=== PATIENT | female | born 1950 | race Caucasian/White ===

== ENCOUNTER 2017-12-29 08:17 | Inpatient (IN) | payer MEDICARE ==
--- NOTE | 2017-12-29 08:31 | ED ---
General Adult HPI - General Chief complaint: Chest Pain Stated complaint: Chest pain Time Seen by Provider: 12/29/17 08:23 Source: patient, RN notes reviewed, old records reviewed Mode of arrival: EMS Limitations: no limitations - History of Present Illness Initial comments: 67-year-old female history of hypertension, hypercholesterolemia and tobacco use presents for evaluation of chest pain. Patient's pain began approximately one hour prior to arrival. Describes it as substernal moderate to severe pain. This was associated with palpitations. No dyspnea. No diaphoresis. Patient states she felt well prior to this episode. She had similar episode approximately one week ago which resolved spontaneously. Patient is brought in by EMS, noted by EMS to initially be in A. fib with rapid ventricular response. Patient has no history of A. fib. She converted spontaneously while in route to normal sinus rhythm. Chest pain resolved at the time my evaluation. - Related Data Allergies Allergy/AdvReac Type Severity Reaction Status Date / Time Penicillins Allergy Unknown Verified 12/29/17 08:23 Review of Systems ROS Statement: Those systems with pertinent positive or pertinent negative responses have been documented in the HPI. ROS Other: All systems not noted in ROS Statement are negative. Past Medical History Past Medical History: GERD/Reflux, Hyperlipidemia, Hypertension History of Any Multi-Drug Resistant Organisms: None Reported Past Surgical History: Hysterectomy Past Psychological History: No Psychological Hx Reported Smoking Status: Current every day smoker Past Alcohol Use History: None Reported Past Drug Use History: None Reported General Exam Limitations: no limitations General appearance: alert, in no apparent distress Head exam: Present: atraumatic, normocephalic Eye exam: Present: normal appearance, PERRL, EOMI ENT exam: Present: normal exam Neck exam: Present: normal inspection. Absent: tenderness, meningismus Respiratory exam: Present: normal lung sounds bilaterally. Absent: respiratory distress, wheezes Cardiovascular Exam: Present: regular rate, normal rhythm GI/Abdominal exam: Present: soft. Absent: distended, tenderness, guarding Extremities exam: Present: normal inspection, normal capillary refill. Absent: pedal edema Neurological exam: Present: alert, oriented X3, CN II-XII intact. Absent: motor sensory deficit Psychiatric exam: Present: normal affect, normal mood Skin exam: Present: warm, dry, intact. Absent: cyanosis, diaphoretic Course Vital Signs 12/29/17 12/29/17 12/29/17 08:19 08:33 09:00 Temperature 98.2 F Pulse Rate 72 68 61 Respiratory 16 11 L 23 Rate Blood Pressure 132/80 145/80 145/80 O2 Sat by Pulse 98 96 99 Oximetry EKG Findings - EKG Comments: EKG Findings:: EKG: Normal sinus rhythm, incomplete right bundle branch block age undetermined anterior infarct, rate of 68, SC interval 142 Medical Decision Making - Medical Decision Making 67 -year-old female presenting for evaluation of chest pain. Patient noted by EMS to be in atrial fibrillation with a rate of 167. patient is chest pain-free at the time my evaluation is normal sinus rhythm. Chest x-ray shows mild cardiomegaly with some vascular congestion. Patient has normal CBC, negative initial troponin, electrolytes within normal limits. Patient is started on IV heparin. She took aspirin prior to arrival. She will be admitted for serial cardiac enzymes, telemetry, cardiology consultation. Echo will be obtained. Diagnosis: Unstable angina, new onset atrial fibrillation. Case discussed with the admitting physician who will accept. - Lab Data Result diagrams: 12/29/17 08:37 12/29/17 08:37 Lab Results 12/29/17 12/29/17 12/29/17 Range/Units 08:37 08:37 08:37 WBC 9.1 (3.8-10.6) k/uL RBC 5.03 (3.80-5.40) m/uL Hgb 15.2 (11.4-16.0) gm/dL Hct 46.0 (34.0-46.0) % MCV 91.5 (80.0-100.0) fL MCH 30.1 (25.0-35.0) pg MCHC 32.9 (31.0-37.0) g/dL RDW 13.1 (11.5-15.5) % Plt Count 140 L (150-450) k/uL Neutrophils % 75 % Lymphocytes % 18 % Monocytes % 4 % Eosinophils % 2 % Basophils % 0 % Neutrophils # 6.8 (1.3-7.7) k/uL Lymphocytes # 1.6 (1.0-4.8) k/uL Monocytes # 0.4 (0-1.0) k/uL Eosinophils # 0.2 (0-0.7) k/uL Basophils # 0.0 (0-0.2) k/uL PT (9.0-12.0) sec INR (<1.2) APTT (22.0-30.0) sec Sodium 142 (137-145) mmol/L Potassium 4.0 (3.5-5.1) mmol/L Chloride 110 H (98-107) mmol/L Carbon Dioxide 23 (22-30) mmol/L Anion Gap 9 mmol/L BUN 26 H (7-17) mg/dL Creatinine 0.84 (0.52-1.04) mg/dL Est GFR (CKD-EPI)AfAm 83 (>60 ml/min/1.73 sqM) Est GFR (CKD-EPI)NonAf 72 (>60 ml/min/1.73 sqM) Glucose 136 H (74-99) mg/dL Calcium 9.2 (8.4-10.2) mg/dL Magnesium 1.8 (1.6-2.3) mg/dL Total Bilirubin 0.3 (0.2-1.3) mg/dL AST 24 (14-36) U/L ALT 25 (9-52) U/L Alkaline Phosphatase 90 (38-126) U/L Total Creatine Kinase 80 (30-135) U/L CK-MB (CK-2) 0.8 (0.0-2.4) ng/mL CK-MB (CK-2) Rel Index 1.0 Troponin I <0.012 (0.000-0.034) ng/mL Total Protein 6.6 (6.3-8.2) g/dL Albumin 3.6 (3.5-5.0) g/dL TSH 1.290 (0.465-4.680) mIU/L 12/29/17 Range/Units 08:37 WBC (3.8-10.6) k/uL RBC (3.80-5.40) m/uL Hgb (11.4-16.0) gm/dL Hct (34.0-46.0) % MCV (80.0-100.0) fL MCH (25.0-35.0) pg MCHC (31.0-37.0) g/dL RDW (11.5-15.5) % Plt Count (150-450) k/uL Neutrophils % % Lymphocytes % % Monocytes % % Eosinophils % % Basophils % % Neutrophils # (1.3-7.7) k/uL Lymphocytes # (1.0-4.8) k/uL Monocytes # (0-1.0) k/uL Eosinophils # (0-0.7) k/uL Basophils # (0-0.2) k/uL PT 9.8 (9.0-12.0) sec INR 1.0 (<1.2) APTT 25.4 (22.0-30.0) sec Sodium (137-145) mmol/L Potassium (3.5-5.1) mmol/L Chloride (98-107) mmol/L Carbon Dioxide (22-30) mmol/L Anion Gap mmol/L BUN (7-17) mg/dL Creatinine (0.52-1.04) mg/dL Est GFR (CKD-EPI)AfAm (>60 ml/min/1.73 sqM) Est GFR (CKD-EPI)NonAf (>60 ml/min/1.73 sqM) Glucose (74-99) mg/dL Calcium (8.4-10.2) mg/dL Magnesium (1.6-2.3) mg/dL Total Bilirubin (0.2-1.3) mg/dL AST (14-36) U/L ALT (9-52) U/L Alkaline Phosphatase (38-126) U/L Total Creatine Kinase (30-135) U/L CK-MB (CK-2) (0.0-2.4) ng/mL CK-MB (CK-2) Rel Index Troponin I (0.000-0.034) ng/mL Total Protein (6.3-8.2) g/dL Albumin (3.5-5.0) g/dL TSH (0.465-4.680) mIU/L Critical Care Time Critical Care Time: Yes Total Critical Care Time: 35 Disposition Clinical Impression: Unstable angina pectoris, Atrial fibrillation Disposition: ADMITTED IP TO THIS [facility] Condition: Stable Is patient prescribed a controlled substance at d/c from ED?: No Referrals: Nonstaff,Physician [Primary Care Provider] - 1-2 days Decision to Admit Reason: Admit from EC Decision Date: 12/29/17 Decision Time: 09:50
[2017-12-29] MEDS ORDERED: METOPROLOL TARTRATE 25 MG TAB PO STA (08:39)
[2017-12-29 08:50] LABS: Basophils % (A) 0 %; Eosinophils # (A) 0.2 k/uL (0-0.7); Eosinophils % (A) 2 %; HGB 15.2 gm/dL (11.4-16.0); Lymphocytes # (A) 1.6 k/uL (1.0-4.8); Lymphocytes % (A) 18 %; MCH 30.1 pg (25.0-35.0); MCHC 32.9 g/dL (31.0-37.0); MCV 91.5 fL (80.0-100.0); Mean Platelet Volume 8.8; Monocytes # (A) 0.4 k/uL (0-1.0); Monocytes % (A) 4 %; Neutrophils # (A) 6.8 k/uL (1.3-7.7); Neutrophils % (A) 75 %; Platelet Count 140 k/uL (150-450); RBC 5.03 m/uL (3.80-5.40); RDW 13.1 % (11.5-15.5); WBC 9.1 k/uL (3.8-10.6)
--- NOTE | 2017-12-29 08:53 | XR ---
EXAMINATION TYPE: XR chest 2V DATE OF EXAM: 12/29/2017 HISTORY: Chest Pain. REFERENCE: NONE. FINDINGS: Heart is mildly prominent. The lungs are clear. There is mild vascular congestion without f rank edema. No pleural fluid is seen. IMPRESSION: MILD CARDIOMEGALY WITH VASCULAR CONGESTION.
[2017-12-29] MEDS ORDERED: METOPROLOL TARTRATE 25 MG TAB PO SCH (09:00)
[2017-12-29] MEDS ORDERED: HEPARIN SODIUM,PORCINE 5,000 UNIT/ML 1 ML VIAL IV ONE (09:02)
[2017-12-29] MEDS ORDERED: HEPARIN SODIUM,PORCINE 5,000 UNIT/ML 1 ML VIAL IV PRN (09:02)
[2017-12-29 09:08] LABS: Albumin 3.6 g/dL (3.5-5.0); Calcium 9.2 mg/dL (8.4-10.2); Magnesium 1.8 mg/dL (1.6-2.3); Total Bilirubin 0.3 mg/dL (0.2-1.3); Total Protein 6.6 g/dL (6.3-8.2)
[2017-12-29 09:09] LABS: Partial Thromboplastin Time 25.4 sec (22.0-30.0); Prothrombin Time 9.8 sec (9.0-12.0)
[2017-12-29 09:21] LABS: Creatine Kinase 80 U/L (30-135)
[2017-12-29 09:34] LABS: Creatine Kinase MB 0.8 ng/mL (0.0-2.4); Troponin I <0.012 ng/mL (0.000-0.034)
[2017-12-29] MEDS: SODIUM CHLORIDE 0.9% 1,000 ML IV STA ×2 (09:41→20:12)
[2017-12-29] MEDS: HEPARIN SOD,PORK IN 0.45% NACL 25,000 UNIT in 0.45% NACL 1 500ML.BAG IV SCH (09:44)
[2017-12-29] MEDS ORDERED: NALOXONE 0.4 MG/ML 1 ML VIAL IV PRN (09:51)
[2017-12-29] MEDS ORDERED: MORPHINE SULFATE 4 MG/ML SYRINGE IV PRN (09:56)
[2017-12-29] MEDS ORDERED: ONDANSETRON 4 MG/2 ML VIAL IVP PRN (09:56)
[2017-12-29] MEDS ORDERED: ACETAMINOPHEN TAB 325 MG TAB PO PRN (09:56)
[2017-12-29] MEDS ORDERED: NITROGLYCERIN SL TABS 0.4 MG TAB SUBLINGUAL PRN ×2 (09:58→15:15)
[2017-12-29] MEDS: NICOTINE 21MG/24HR PATCH TRANSDERM SCH (13:12)
[2017-12-29] MEDS ORDERED: IPRATROPIUM-ALBUTEROL 3 ML NEB INHALATION PRN (15:00)
--- NOTE | 2017-12-29 15:02 | P.HPIM ---
History of Present Illness H&P Date: 12/29/17 Chief Complaint: Chest pain 59-year-old female with past medical history of asthma/COPD, hypertension, hyperlipidemia, GERD presents the ED for chest pain. Patient reports going to bed around 5 in the morning. She went to bed, she experienced chest tightness and associated shortness of breath. Pain was initially midsternal but soon moved to the left side. Her sternal chest pain was dull in nature, but was sharp and stabbing on the left side. Pain is 7 out of 10 in severity. There is no radiation of pain. Her pain was associated with left arm numbness and one episode of loose stool and chills. Patient reports taking 3 aspirins, which did not help, which prompted her to come to the emergency room. She denies any headaches, lower extremity edema, nausea, vomiting, fever, cough , changes in urination or bowel habits. No changes in appetite or weight. On route to the hospital, she was found to be in atrial fibrillation with rapid ventricular rate. She converted to normal sinus rhythm while she was in the ED without any intervention. In the ED, CBC was unremarkable except for platelet count 140. Coagulation panel was negative. CMP showed a chloride of 110, BUN of 26 and glucose of 136. Initial troponin was less than 0.012, EKG showed normal sinus rhythm with an incomplete RBBB. TSH is 1.29. Chest x-ray showed mild cardiomegaly with vascular congestion. Patient was then started on a heparin drip for her chest pain, admitted for further workup and management. Cardiology on consult. Review of Systems All systems: negative Past Medical History Past Medical History: GERD/Reflux, Hyperlipidemia, Hypertension Additional Past Medical History / Comment(s): Chest pain, stress test-last in 2014 History of Any Multi-Drug Resistant Organisms: None Reported Past Surgical History: Hysterectomy Past Anesthesia/Blood Transfusion Reactions: No Reported Reaction Past Psychological History: No Psychological Hx Reported Smoking Status: Current every day smoker Past Alcohol Use History: None Reported Past Drug Use History: None Reported - Past Family History Mother Family Medical History: CVA/TIA, Hypertension Additional Family Medical History / Comment(s): "Circulation problems" Brother(s) Family Medical History: Hypertension Medications and Allergies Home Medications Medication Instructions Recorded Confirmed Type Atorvastatin Calcium [Lipitor] 40 mg PO DAILY 12/29/17 12/29/17 History Citalopram Hydrobromide [CeleXA] 20 mg PO DAILY 12/29/17 12/29/17 History Hydrochlorothiazide 12.5mg Tab 18.75 mg PO DAILY 12/29/17 12/29/17 History Lisinopril 30 mg PO DAILY 12/29/17 12/29/17 History Prochlorperazine [Compazine] 10 mg PO BID PRN 12/29/17 12/29/17 History Ranitidine HCl [Zantac] 300 mg PO HS 12/29/17 12/29/17 History Allergies Allergy/AdvReac Type Severity Reaction Status Date / Time Penicillins Allergy Unknown Verified 12/29/17 10:41 lactose AdvReac Nausea & Verified 12/29/17 14:41 Vomiting & Diarrhea Physical Exam Vitals: Vital Signs Temp Pulse Pulse Resp BP BP Pulse Ox 12/29/17 13:05 97.9 F 48 L 18 137/64 97 12/29/17 12:43 97.9 F 15 12/29/17 12:30 45 L 8 L 129/63 97 12/29/17 12:00 47 L 15 122/55 98 12/29/17 11:30 48 L 17 122/59 97 12/29/17 11:00 61 18 124/69 99 12/29/17 10:30 55 L 20 143/76 99 12/29/17 10:00 57 L 18 128/96 97 12/29/17 09:00 61 23 145/80 99 12/29/17 08:33 68 11 L 145/80 96 12/29/17 08:19 98.2 F 72 16 132/80 98 Intake and Output 12/28/17 12/29/17 12/29/17 22:59 06:59 14:59 Other: Weight 81.647 kg General: [non toxic], [no distress], [appears at stated age] Derm: [warm], [dry] Head: [atraumatic], [normocephalic], [symmetric] Eyes: [EOMI], [no lid lag], [anicteric sclera] Mouth: [no lip lesion], [mucus membranes moist] Cardiovascular: [S1S2 reg], [no murmur], [positive DP pulse bilateral] Lungs: [CTA bilateral], [no rhonchi, no rales] , [no accessory muscle use] Abdominal: [soft], [ nontender to palpation], [no guarding], [no appreciable organomegaly] Ext: [no gross muscle atrophy], [no edema], [no contractures] Neuro: [no focal neuro deficits] Psych: [Alert], [oriented], [appropriate affect] Results CBC & Chem 7: 12/29/17 08:37 12/29/17 08:37 Labs: Abnormal Lab Results - Last 24 Hours (Table) 12/29/17 12/29/17 Range/Units 08:37 08:37 Plt Count 140 L (150-450) k/uL Chloride 110 H (98-107) mmol/L BUN 26 H (7-17) mg/dL Glucose 136 H (74-99) mg/dL Thrombosis Risk Factor Assmnt - Choose All That Apply Any of the Below Risk Factors Present?: No Other Risk Factors: Yes Each Risk Factor Represents 2 Points: Age 61-74 years Other congenital or acquired thrombophilia - If yes, enter type in comment: No Thrombosis Risk Factor Assessment Total Risk Factor Score: 2 Thrombosis Risk Factor Assessment Level: Low Risk Assessment and Plan Assessment: Assessment and Plan 1. Chest pain: Likely due to demand ischemia from A-Fib with RVR. Troponin < 0.012, EKG showing NSR with incomplete RBBB. CXR shows mild cardiomegaly and vascular congestion. Pain management with Tylenol, Morphine and Nitrostat. Heparin drip pending Cardiology evaluation. Telemetry monitoring. HEART healthy diet. O2 per NC to maintain O2 sat > 92%. Trend Trop/EKG x 2 to r/o ACS. FU Echocardiogram, Cardiology. 2. Hypertension: BP 137/64. Continue HCTZ 18.75 mg PO QD, Lisinorpil 30 mg PO QD , Metoprolol 25 mg PO BID. Monitor vitals, adjust medications as necessary. 3. COPD: Stable. DuoNeb Q4H PRN for SOB/wheezing. 4. Hyperlipidemia: Continue Lipitor 40 mg PO QHS. FU Lipid panel, A1c 5. Smoker: 1PPD x 50 years. Habitrol 21 mg TRANSDERM patch QD. 6. DVT/GI Prophylaxis: Heparin drip. Protonix 40 mg PO QAM.
[2017-12-29] MEDS ORDERED: SODIUM CHLORIDE 0.9% 1,000 ML in EMPTY BAG 1 BAG IV ONE (15:15)
[2017-12-29] MEDS ORDERED: ALPRAZolam 0.25 MG TAB PO PRN (15:15)
[2017-12-29] MEDS ORDERED: ALPRAZolam 0.5 MG TAB PO PRN (15:15)
--- NOTE | 2017-12-29 15:39 | CONS ---
CONSULTATION Mrs Crabtree is a 67-year-old female with a history of hypertension, hyperlipidemia, chronic tobacco use, who presented to the emergency room with an episode of chest discomfort. The discomfort occurred at rest, was quite severe. She took an aspirin. Subsequently started to have palpitation. According to the emergency room note, the EMS noted that she was in atrial fibrillation. This converted to sinus mechanism. On presentation to the emergency room, she was in sinus mechanism and I do not have any documented rhythm strips of atrial fibrillation. The patient has no prior documented history of cardiac disease. She has underwent a myocardial perfusion imaging about 3 years ago according to her that was unremarkable. She is not very active physically. Has dyspnea on exertion, has no associated chest discomfort. She has no palpitation. She has some dizziness. No syncope. No PND, orthopnea. No peripheral edema. Her coronary risk factors are remarkable for history of hypertension, hyperlipidemia, and chronic tobacco use. She is nondiabetic. MEDICATIONS: Include Zantac, lisinopril 30 mg daily, hydrochlorothiazide 12.5 mg daily, Celexa 20 mg daily, and atorvastatin 40 mg daily. REVIEW OF SYSTEMS: Respiratory system: She has of dyspnea on exertion, chronic tobacco use and occasional wheezing. GI system: No recent GI bleeding. No peptic ulcer disease. system: No dysuria or hematuria. Nervous system: No history of stroke or seizure. PHYSICAL EXAMINATION: She is a 67-year-old female, alert, oriented, in no apparent distress. Blood pressure 137/60 with a heart rate in the 50s. HEAD: Normocephalic. Eyes: Sclerae anicteric. Neck: Good carotid upstroke. No bruit. No jugular venous distention. Lungs clear to auscultation. HEART: Regular rate and rhythm S1, S2. No S3. No rub. ABDOMEN: Soft, nontender positive bowel sounds. No megaly. EXTREMITIES: No edema. Intact distal pulses. LAB DATA: Lab data revealed troponin less than 0.012, BUN and creatinine 26 and 0.84. Potassium 4.0. Hemoglobin of 15 and 0.2. EKG revealed sinus mechanism. Normal axis, incomplete right bundle branch block, poor R progression. Chest x-ray revealed no evidence of acute infiltrate. There is mild congestion noted. IMPRESSION: 1. Symptoms of chest discomfort of unclear etiology in a patient with multiple risk factors. The possibility of ischemic heart disease cannot be excluded. 2. Questionable atrial fibrillation no documentation available to me. According to the EMS through the emergency room, she had transient atrial fibrillation. 3. Hypertension. 4. Hyperlipidemia. 5. Chronic tobacco use. 6. History of arthritis. RECOMMENDATIONS: From the cardiac standpoint, I will obtain echocardiogram with Doppler. I will also recommend to proceed with coronary angiography. The rationale behind the procedures as well as risks and complications were discussed with the patient who is in full understanding and agreement. She will discuss it further with her . She will be tentatively scheduled to undergo the procedure tomorrow. Depending on her progress, further recommendations will be made. Thank you for this consult. We will follow with you. CAMILLE / MARY GRACEN: [id number] /
[2017-12-29 16:52] LABS: Creatine Kinase MB 1.4 ng/mL (0.0-2.4)
[2017-12-29 16:54] LABS: Troponin I 0.037 ng/mL (0.000-0.034)
[2017-12-29] MEDS: ASPIRIN 81 MG PO SCH (17:05)
[2017-12-29] MEDS: METOPROLOL TARTRATE 12.5 MG TAB PO SCH (20:11)
[2017-12-29 20:43] LABS: Creatine Kinase MB 1.3 ng/mL (0.0-2.4)
[2017-12-29 20:53] LABS: Troponin I 0.051 ng/mL (0.000-0.034)
[2017-12-29 21:30] VITALS: RESP 18
[2017-12-29 22:46] LABS: Cholesterol 139 mg/dL (<200); HDL Cholesterol 36 mg/dL (40-60); LDL Cholesterol,Calculated 63 mg/dL (0-99); Triglycerides 200 mg/dL (<150)
[2017-12-30] MEDS ORDERED: ATORVASTATIN 80 MG TAB PO ONE (06:00)
[2017-12-30] MEDS ORDERED: ASPIRIN 325 MG TAB PO ONE (06:00)
[2017-12-30 08:13] LABS: Basophils % (A) 1 %; Eosinophils # (A) 0.1 k/uL (0-0.7); Eosinophils % (A) 2 %; HCT 41.7 % (34.0-46.0); HGB 13.5 gm/dL (11.4-16.0); Lymphocytes # (A) 2.5 k/uL (1.0-4.8); Lymphocytes % (A) 34 %; MCH 30.2 pg (25.0-35.0); MCHC 32.3 g/dL (31.0-37.0); MCV 93.5 fL (80.0-100.0); Mean Platelet Volume 9.6; Monocytes # (A) 0.4 k/uL (0-1.0); Monocytes % (A) 5 %; Neutrophils # (A) 4.2 k/uL (1.3-7.7); Neutrophils % (A) 57 %; Platelet Count 122 k/uL (150-450); RBC 4.46 m/uL (3.80-5.40); RDW 13.1 % (11.5-15.5); WBC 7.4 k/uL (3.8-10.6)
[2017-12-30] MEDS ORDERED: HYDROCHLOROTHIAZIDE 12.5 MG CAP PO SCH (09:00)
[2017-12-30] MEDS ORDERED: HYDROCHLOROTHIAZIDE 25 MG TAB PO SCH (09:00)
[2017-12-30] MEDS ORDERED: LISINOPRIL 10 MG TAB PO SCH (09:00)
[2017-12-30] MEDS: ATORVASTATIN 40 MG TAB PO SCH (09:01)
[2017-12-30] MEDS: ASPIRIN 81 MG PO SCH (09:01)
[2017-12-30] MEDS: HEPARIN SOD,PORK IN 0.45% NACL 25,000 UNIT in 0.45% NACL 1 500ML.BAG IV SCH ×2 (09:02→09:14)
[2017-12-30] MEDS: SODIUM CHLORIDE 0.9% 1,000 ML IV STA (09:02)
[2017-12-30] MEDS: PANTOPRAZOLE 40 MG TABLET PO SCH (09:16)
[2017-12-30] MEDS: CITALOPRAM HYDROBROMIDE 20 MG TAB PO SCH (09:16)
[2017-12-30] MEDS: METOPROLOL TARTRATE 12.5 MG TAB PO SCH ×2 (09:17→22:46)
[2017-12-30] MEDS: NICOTINE 21MG/24HR PATCH TRANSDERM SCH (09:18)
[2017-12-30] MEDS ORDERED: REGADENOSON 0.4 MG/5 ML SYRINGE IV ONE (10:24)
[2017-12-30] MEDS ORDERED: CAFFEINE CITRATE 60 MG/3 ML VIAL IV PRN (10:24)
[2017-12-30] MEDS ORDERED: SODIUM CHLORIDE 0.9% 1,000 ML IV ONE (11:27)
--- NOTE | 2017-12-30 11:30 | ECHOF ---
Referral Reason:cp MEASUREMENTS -------- HEIGHT: 154.9 cm WEIGHT: 88.0 kg BP: 145/72 RVIDd: 3.3 cm (< 3.3) IVSd: 1.3 cm (0.6 - 1.1) LVIDd: 4.1 cm (3.9 - 5.3) LVPWd: 1.2 cm (0.6 - 1.1) IVSs: 1.5 cm LVIDs: 2.5 cm LVPWs: 1.6 cm LA Diam: 2.9 cm (2.7 - 3.8) LAESV Index (A-L): 30.86 ml/m Ao Diam: 3.4 cm (2.0 - 3.7) AV Cusp: 2.3 cm (1.5 - 2.6) MV EXCURSION: 14.230 mm (> 18.000) MV EF SLOPE: 181 mm/s (70 - 150) EPSS: 0.2 cm MV E Ramsey: 1.21 m/s MV DecT: 200 ms MV A Ramsey: 0.96 m/s MV E/A Ratio: 1.27 RAP: 15.00 mmHg RVSP: 39.49 mmHg FINDINGS -------- Sinus rhythm. This was a technically adequate study. The left ventricular size is normal. There is mild concentric left ventricular hypertrophy. Overa ll left ventricular systolic function is normal with, an EF between 55 - 60 %. The right ventricle is mildly enlarged. LA is midly dilated 29-33ml/m2. The right atrium is normal in size. There is mild aortic valve sclerosis. Mild mitral annular calcification present. There is trace to mild mitral regurgitation. Trace tricuspid regurgitation present. There is mild pulmonary hypertension. The right ventricula r systolic pressure, as measured by Doppler, is 39.49mmHg. There is no pulmonic regurgitation present. The aortic root size is normal. The inferior vena cava is dilated with poor inspiratory collapse which is consistent with estimated r ight atrial pressure of 15 mmHg. There is no pericardial effusion. CONCLUSIONS -------- 1. Sinus rhythm. 2. This was a technically adequate study. 3. The left ventricular size is normal. 4. There is mild concentric left ventricular hypertrophy. 5. Overall left ventricular systolic function is normal with, an EF between 55 - 60 %. 6. The right ventricle is mildly enlarged. 7. LA is midly dilated 29-33ml/m2. 8. The right atrium is normal in size. 9. There is mild aortic valve sclerosis. 10. Mild mitral annular calcification present. 11. There is trace to mild mitral regurgitation. 12. Trace tricuspid regurgitation present. 13. There is mild pulmonary hypertension. 14. The right ventricular systolic pressure, as measured by Doppler, is 39.49mmHg. 15. There is no pulmonic regurgitation present. 16. The aortic root size is normal. 17. The inferior vena cava is dilated with poor inspiratory collapse which is consistent with estimat ed right atrial pressure of 15 mmHg. 18. There is no pericardial effusion. COMPUTER PROGRAMMER: Jessy Dodson RDCS
[2017-12-30] MEDS ORDERED: diphenhydrAMINE 50 MG/ML 1 ML VIAL IVP ONE (12:09)
[2017-12-30] MEDS ORDERED: fentaNYL (PF) 50 MCG/ML 2 ML AMP IVP ONE (12:27)
[2017-12-30] MEDS ORDERED: LIDOCAINE 2% INJ 20 MG/ML SQ ONE (12:31)
[2017-12-30] MEDS ORDERED: MIDAZOLAM 2 MG/2 ML VIAL IVP ONE (12:32)
[2017-12-30] MEDS ORDERED: VERAPAMIL SYRINGE (5 MG/10 ML) INTRAARTER ONE (12:33)
[2017-12-30] MEDS ORDERED: BIVALIRUDIN 250 MG in SODIUM CHLORIDE 0.9% 50 ML IV ONE (12:45)
[2017-12-30] MEDS ORDERED: BIVALIRUDIN BOLUS 250 MG/50 ML IV ONE (12:45)
[2017-12-30] MEDS ORDERED: NITROGLYCERIN 1000MCG/10ML SYRINGE INTRACORON ONE (12:46)
[2017-12-30] MEDS ORDERED: PRASUGREL 10 MG TAB PO ONE (12:47)
[2017-12-30] MEDS ORDERED: IOPAMIDOL-370 125ML BTL INJ ONE (13:04)
[2017-12-30] MEDS ORDERED: IOPAMIDOL-370 100ML BTL INJ ONE (13:05)
[2017-12-30] MEDS ORDERED: NITROGLYCERIN SL TABS 0.4 MG TAB SUBLINGUAL PRN (13:09)
[2017-12-30] MEDS ORDERED: MAG HYDROX/AL HYDROX/SIMETH 30 ML CUP PO PRN (13:09)
[2017-12-30] MEDS ORDERED: ATROPINE SULFATE 0.1 MG/ML 10ML SYRINGE IV PRN (13:09)
[2017-12-30] MEDS ORDERED: ZOLPIDEM 5 MG TAB PO PRN (13:09)
[2017-12-30] MEDS ORDERED: RX INFO: IV CONTRAST WAS GIVEN 1 EACH MISC MISCELLANE PRN (13:09)
[2017-12-30] MEDS ORDERED: SODIUM CHLORIDE 0.9% 1,000 ML IV SCH (13:15)
[2017-12-30 14:28] LABS: Hemoglobin A1C 5.6 % (4.0-6.0)
--- NOTE | 2017-12-30 16:36 | CC ---
CARDIAC CATHETERIZATION REPORT Mrs. Crabtree is a 67-year-old female with known history of hypertension, hyperlipidemia, chronic tobacco use, who presented with symptoms of chest discomfort. There was a question of an episode of atrial fibrillation in the EMS, although no rhythm strips are available to me. She had mild elevation of her troponin. Recommendation was made regarding cardiac catheterization. The procedure, its risks and complications, were discussed with the patient, who is in full understanding and agreement. PROCEDURE: Patient was brought to the boot and shoe laborer in a fasting, semi-sedated state after receiving fentanyl and Benadryl and achieving a moderately conscious sedated state. Using Xylocaine anesthesia and Seldinger technique, a 6-[place] sheath was introduced in the right radial artery. Selective right and left angiography was performed using 5-[place] 3-1/2 bend, right and left Kentrell catheters. Multiple views were taken of the arteries, including hemiaxial views that were obtained. Following that, catheters were removed. Images were reviewed. FINDINGS: LEFT MAIN: This is a short-sized vessel bifurcating right away into left circumflex and left anterior descending artery. The left main coronary artery has no evidence of high- grade stenosis. LEFT ANTERIOR DESCENDING ARTERY: This is a large-sized vessel reaching toward the apex with a wrap around the apex segment giving rise to a large diagonal branch. The left anterior descending artery as well its branches have no evidence of obstructive coronary artery disease. LEFT CIRCUMFLEX: This is a nondominant vessel giving rise to 3 obtuse marginal branches. The first one is small in caliber. The second and third are larger. The third is the largest of the three. The third obtuse marginal branch proximally has an 80% to 90% stenosis. The rest of the vessel has no high-grade stenosis. RIGHT CORONARY ARTERY: This is a nondominant, large-sized vessel bifurcating into PDA and posterolateral segment and branches. The right coronary artery as well as branches have no evidence of obstructive coronary artery disease. LEFT VENTRICULOGRAM: Left ventriculogram was not performed. CONCLUSION: 1. Critical stenosis involving the third obtuse marginal branch. 2. No evidence of significant obstructive disease in the LAD and the right coronary artery. RECOMMENDATIONS: In view of findings and anatomy, I recommend proceeding with angioplasty and stenting of the circumflex. The procedures, its risks and complications were discussed with the patient, who is in full understanding and agreement. MMODL / IJN: [id number] /
--- NOTE | 2017-12-30 16:36 | PTCA ---
PERCUTANEOUSTRANS CORORONARY ANGIOGRAPHY Mrs. Crabtree is a 67 -year-old female with known history of hypertension, hyperlipidemia, and chronic tobacco use who presented with symptoms of chest pain, had mild elevation in troponin, recommendation made regarding cardiac catheterization. The procedure as well as risks and complications were discussed with the patient who is in full understanding and agreement. DESCRIPTION PROCEDURE: A 6-[place] 3.5 guiding catheter was introduced into the system. After cannulating the left main, a 0.014 balanced medium weight J-wire was advanced and positioned in the third obtuse marginal branch. Following that, a 2.5 x 50 mm Xience Doris stent was advanced, deployed and was dilated at 14 atmospheres. After the last inflation, after appropriate wait, the balloon and the guidewire were withdrawn back in the guiding catheter. Images were obtained, repeated. Those images reveal stable successful stenting. At that point, the guiding catheter, the balloon and the guidewire were removed. The sheath was removed. Hemostasis was obtained with deployment of a TR band. There was no immediate complications. Patient is returned to her room in stable condition. Of note, the patient received Angiomax per protocol as well as oral loading dose of Effient. She had chest discomfort and EKG changes with the inflations that resolved at the end of the procedure. RESULTS: Successful stenting of the third obtuse marginal branch with reduction of stenosis from 80% to 0%. RECOMMENDATIONS: Patient will be continued on aspirin, Effient, beta blockers, PAWEL inhibitor, and statin. The importance of dual antiplatelet treatment as well as smoking cessation were discussed with the patient who is in full understanding and agreement. Duration of procedure: 30 minutes. CAMILLE / MARY GRACEN: [id number] /
--- NOTE | 2017-12-30 17:39 | P.PN ---
Subjective Progress Note Date: 12/30/17 The patient was seen and examined at the bedside. She notes that she continues to have mild chest pain intermittently but otherwise denied SOB, palpitations, dizziness, fever, chills, or cough. She further denied abdominal pain, nausea, vomiting, diarrhea, or constipation. Objective - Vital Signs Vital signs: Vital Signs Temp 98.0 F 12/30/17 15:55 Pulse 46 L 12/30/17 15:55 Resp 18 12/30/17 15:55 BP 174/93 12/30/17 15:55 Pulse Ox 98 12/30/17 15:55 Intake & Output 12/29/17 12/30/17 12/30/17 18:59 06:59 18:59 Intake Total 144.313 480 662.259 Balance 144.313 480 662.259 Weight 81.647 kg 88.3 kg Intake: IV 302 Intake, IV Titration 144.313 360.259 Amount Heparin Sod,Pork in 0.45% 144.313 360.259 NaCl 25,000 unit In 0.45 % NaCl 1 500ml.bag @ 12 UNITS/KG/HR 19.59 mls/hr IV .Q24H [facility] Rx#: [id number] Oral 480 Other: # Voids 1 2 1 - Exam General: Non-toxic, in no acute distress HEENT: NC/AT, anicteric sclerae, moist conjunctiva, no lid-lag, PERRLA, oropharynx clear, no erythema, exudates Cardiovascular: S1/S2 wnl, no murmurs, rubs, or gallops Lungs: Clear to auscultation, normal respiratory effort, no accessory muscle use Abdominal: Soft, nontender, non-distended, no guarding, rebound, or rigidity, normoactive bowel sounds Skin: Warm, dry Extremities: No edema or contractures Psychiatric: Alert and oriented to person, place and time, appropriate affect, Intact judgment Neuro: CN II-XII grossly intact, no focal motor deficits - Labs CBC & Chem 7: 12/30/17 06:51 12/29/17 08:37 Labs: Abnormal Lab Results - Last 24 Hours (Table) 12/29/17 12/29/17 12/29/17 Range/Units 08:37 19:50 22:53 Plt Count (150-450) k/uL APTT 49.8 H (22.0-30.0) sec Troponin I 0.051 H* (0.000-0.034) ng/mL Triglycerides 200 H (<150) mg/dL HDL Cholesterol 36 L (40-60) mg/dL 12/30/17 Range/Units 06:51 Plt Count 122 L (150-450) k/uL APTT (22.0-30.0) sec Troponin I (0.000-0.034) ng/mL Triglycerides (<150) mg/dL HDL Cholesterol (40-60) mg/dL Assessment and Plan Plan: NSTEMI s/p cardiac catheterization w/ angioplasty and stenting of circumflex - Cardiology recs appreciated - C/w Aspirin 81 mg, Lipitor 40 mg, Lisinopril 20 mg po bid, Lopressor 12.5 mg po bid HTN - C/w Lisinopril 20 bid, and Lopressor 12.5 bid, and HCTZ 25 qd COPD - C/w Duonebs prn HLD - C/w Lipitor 40 Smoker - Nicotine patch DVT//GI prop - Heparin, Protonix
[2017-12-30] MEDS: LISINOPRIL 10 MG TAB PO SCH (22:47)
[2017-12-31] MEDS: PANTOPRAZOLE 40 MG TABLET PO SCH (07:01)
[2017-12-31 07:14] LABS: Basophils % (A) 0 %; Eosinophils # (A) 0.1 k/uL (0-0.7); Eosinophils % (A) 1 %; HCT 44.6 % (34.0-46.0); HGB 14.8 gm/dL (11.4-16.0); Lymphocytes # (A) 2.2 k/uL (1.0-4.8); Lymphocytes % (A) 21 %; MCH 30.3 pg (25.0-35.0); MCHC 33.1 g/dL (31.0-37.0); MCV 91.5 fL (80.0-100.0); Mean Platelet Volume 8.9; Monocytes # (A) 0.5 k/uL (0-1.0); Monocytes % (A) 5 %; Neutrophils # (A) 7.4 k/uL (1.3-7.7); Neutrophils % (A) 72 %; Platelet Count 159 k/uL (150-450); RBC 4.88 m/uL (3.80-5.40); RDW 12.9 % (11.5-15.5); WBC 10.4 k/uL (3.8-10.6)
[2017-12-31] MEDS: ATORVASTATIN 40 MG TAB PO SCH (07:36)
[2017-12-31] MEDS: CITALOPRAM HYDROBROMIDE 20 MG TAB PO SCH (07:36)
[2017-12-31] MEDS: LISINOPRIL 10 MG TAB PO SCH (07:37)
[2017-12-31] MEDS: METOPROLOL TARTRATE 12.5 MG TAB PO SCH (07:37)
[2017-12-31] MEDS: NICOTINE 21MG/24HR PATCH TRANSDERM SCH (07:38)
[2017-12-31 07:43] LABS: Calcium 9.4 mg/dL (8.4-10.2); Potassium 4.5 mmol/L (3.5-5.1)
[2017-12-31] MEDS ORDERED: HYDROCHLOROTHIAZIDE 12.5 MG CAP PO SCH (09:00)
[2017-12-31] MEDS ORDERED: PRASUGREL 10 MG TAB PO SCH (09:00)
[2017-12-31] MEDS ORDERED: ASPIRIN 81 MG PO SCH (09:00)
--- NOTE | 2017-12-31 09:25 | PN ---
PROGRESS NOTE Mrs. Crabtree is a 67-year-old female who presented with non ST-segment elevation myocardial infarction, underwent cardiac catheterization and stenting of the obtuse marginal branch. She is feeling well today. She is denying any chest pain. Her breathing has been stable. She denies any dizziness or palpitation. She denies any nausea. Her echocardiogram revealed preserved systolic function. She continues to be on aspirin once a day, Effient 10 mg daily, hydrochlorothiazide 25 mg daily, Lipitor 40 mg daily, lisinopril 20 mg twice a day, metoprolol tartrate 12.5 mg twice a day. PHYSICAL EXAMINATION: Blood pressure 119/70 with a heart rate in the 50s. LUNGS: Clear. HEART: Regular rate and rhythm. S1, S2. No S3. No rub. ABDOMEN: Soft, nontender. Right radial pulse intact. LAB DATA: Revealed BUN and creatinine of 18 and 0.92, potassium 4.5. IMPRESSION: 1. Status post stenting of the left circumflex obtuse marginal branch. 2. Hypertension. 3. Chronic tobacco use. 4. Hyperlipidemia. RECOMMENDATION: She should be able to be discharged home today and follow as an outpatient in 1 week. The importance of smoking cessation were discussed with her. MMODL / IJN: [id number] /
[2017-12-31 11:40] VITALS: BP 149/74; PULSE 43; TEMP 98.8
--- NOTE | 2017-12-31 12:03 | P.DS ---
Providers Date of admission: 12/31/17 09:30 Expected date of discharge: 12/31/17 Attending physician: Eddie Ruiz MD Consults: 12/29/17 09:57 Consult Physician Routine Consulting Provider: Sarita Perdomo Consult Reason/Comments: New-onset atrial fibrillation, unstable angina Do you want consulting provider notified?: Yes 12/30/17 13:10 Consult Physician Routine Consulting Provider: [facility] Consult Reason/Comments: Post Interventional patient Do you want consulting provider notified?: Already Contacted Primary care physician: Physician Nonstaff Hospital Course: The patient is a 59 yo F w/ the PMH of asthma/COPD, HTN, HLD, active smoker, and GERD who presented to the ED for chest pain ongoing for 12 hours w/ associated shortness of breath. Pain initially midsternal but then moved to L side, dull in nature, 7/10, with L arm numbness and one episode of loose stool and chills. No alleviating or exacerbating factors. In the ED, initial troponin was less than 0.012, EKG showed normal sinus rhythm w/ incomplete RBBB with CXR showing mild cardiomegaly and vascular congestion. The patient was started on the Heparin infusion and admitted for further evaluation. The patient's troponin levels increased to 0.037 and 0.051. Cardiology recommended cardiac catheterization with subsequent stenting of L circumflex obtuse marginal branch with Echocardiogram showing preserved EF. The patient did not have recurrence of her chest pain and denied any episodes of dizziness, palpitations, or SOB. She is presently stable and ready for discharge to home with subsequent Cardiology f/u. Physical Examination General: Awake, alert, in no acute distress HEENT: NC/AT, anicteric sclerae, moist conjunctiva, no lid-lag, PERRLA, oropharynx clear, no erythema, exudates Cardiovascular: S1/S2 wnl, no murmurs, rubs, or gallops Lungs: Clear to auscultation, normal respiratory effort, no accessory muscle use Abdominal: Soft, nontender, non-distended, no guarding, rebound, or rigidity, normoactive bowel sounds Skin: Warm, dry Extremities: No edema or contractures Psychiatric: Alert and oriented to person, place and time, appropriate affect, Intact judgment Neuro: CN II-XI grossly intact, sensation to light touch grossly present throughout, no focal sensory deficits Discharge diagnosis: NSTEMI s/p stenting of L circumflex obtuse marginal branch , HTN, HLD, Chronic tobacco use, Asthma A total of 40 minutes of time were spent preparing this complex discharge summary. Patient Condition at Discharge: Stable Plan - Discharge Summary Discharge Rx Participant: No New Discharge Prescriptions: New Aspirin 81 mg PO DAILY chew Metoprolol Tartrate [Lopressor] 12.5 mg PO BID #90 tab Prasugrel [Effient] 10 mg PO DAILY #90 tab Continue Prochlorperazine [Compazine] 10 mg PO BID PRN PRN Reason: Nausea Ranitidine HCl [Zantac] 300 mg PO HS Citalopram Hydrobromide [CeleXA] 20 mg PO DAILY Atorvastatin Calcium [Lipitor] 40 mg PO DAILY Lisinopril 30 mg PO DAILY #180 tablet Changed Hydrochlorothiazide 12.5mg Tab 12.5 mg PO DAILY #3 Discharge Medication List Atorvastatin Calcium [Lipitor] 40 mg PO DAILY 12/29/17 [History] Citalopram Hydrobromide [CeleXA] 20 mg PO DAILY 12/29/17 [History] Prochlorperazine [Compazine] 10 mg PO BID PRN 12/29/17 [History] Ranitidine HCl [Zantac] 300 mg PO HS 12/29/17 [History] Aspirin 81 mg PO DAILY chew 12/31/17 [Rx] Hydrochlorothiazide 12.5mg Tab 12.5 mg PO DAILY #3 12/31/17 [Rx] Lisinopril 30 mg PO DAILY #180 tablet 12/31/17 [Rx] Metoprolol Tartrate [Lopressor] 12.5 mg PO BID #90 tab 12/31/17 [Rx] Prasugrel [Effient] 10 mg PO DAILY #90 tab 12/31/17 [Rx] Follow up Appointment(s)/Referral(s): Sarita Perdomo MD [STAFF PHYSICIAN] - 01/07/18 3:15 pm (Saturday) Nonstaff,Physician [Primary Care Provider] - 1-2 days (Please make a follow up appointment with a primary care doctor within a week) Patient Instructions/Handouts: *Surgery [facility] - After Heart Catheterization - [employer] S[employer]er Instructions, Heart Catheterization (GEN) Activity/Diet/Wound Care/Special Instructions: pts copay for Effient is $30/month Discharge Disposition: HOME SELF-CARE
[2017-12-31 12:07] VITALS: BMI 36.8
== END 2017-12-31 12:09 | disposition home or self-care (01) | DRG 247 ==
LOC: EC 08:17 → 3SCARD 09:51 → OBSVTOIN 12-31 09:30
PROVIDERS: ADMIT Family Medicine; ATTEND Family Medicine
PROC: B2111ZZ Fluoroscopy of Multiple Coronary Arteries using Low Osmolar Contrast (ICD-10-PCS; 2017-12-30)
PROC: 027034Z Dilation of Coronary Artery, One Artery with Drug-eluting Intraluminal Device, Percutaneous Approach (ICD-10-PCS; principal; 2017-12-30 11:10)
PROC: 4A023N7 Measurement of Cardiac Sampling and Pressure, Left Heart, Percutaneous Approach (ICD-10-PCS; 2017-12-30 11:10)
DX: I21.4 Non-ST elevation (NSTEMI) myocardial infarction (principal); E78.00 Pure hypercholesterolemia, unspecified; E78.5 Hyperlipidemia, unspecified; F17.210 Nicotine dependence, cigarettes, uncomplicated; I11.9 Hypertensive heart disease without heart failure; I45.10 Unspecified right bundle-branch block; J44.9 Chronic obstructive pulmonary disease, unspecified; K21.9 Gastro-esophageal reflux disease without esophagitis; M19.90 Unspecified osteoarthritis, unspecified site; I25.10 Atherosclerotic heart disease of native coronary artery without angina pectoris; Z79.899 Other long term (current) drug therapy; Z90.710 Acquired absence of both cervix and uterus; Z88.0 Allergy status to penicillin; Z88.8 Allergy status to other drugs, medicaments and biological substances; Z82.49 Family history of ischemic heart disease and other diseases of the circulatory system; Z82.3 Family history of stroke
CPT/HCPCS: 36415; 71046; 80048; 80053; 80061; 82550; 82553; 83036; 83735; 84443; 84484; 85025; 85610; 85730; 93005; 93306; 93458; 94760; 96365; 96366; 96376; 99291; C1874

== ENCOUNTER 2018-08-24 03:16 | Observation (INO) | payer MEDICARE, OTHER ==
--- NOTE | 2018-08-24 03:28 | ED ---
General Adult HPI - General Chief complaint: Chest Pain Stated complaint: chest pain Time Seen by Provider: 08/24/18 03:18 Source: patient Mode of arrival: EMS - History of Present Illness Initial comments: Dictation was produced using [employer] dictation software. please excuse any grammatical, word or spelling errors. Chief Complaint: 68-year-old female past medical history of myocardial infarction, coronary artery disease dyslipidemia and hypertension presents with chest pain. History of Present Illness: She is 68-year-old female she presents with chief complaint of chest pain. Patient was in bed trying to get some rest that she began feeling some crushing chest pain to her left anterior chest. Patient states pain radiates to her back. Denies any radiation to the shoulders or jaw. Patient denies any associated diaphoresis. Patient is concerned because she was taking that her symptoms were secondary to acute coronary syndrome. Patient states that she did have some exacerbation with ambulation after the initial onset of her symptoms. Patient states that she called EMS she took aspirin prior to EMS arrival. She states that while en route to the emergency department her symptoms abated. She states that her pain is almost completely gone. The ROS documented in this emergency department record has been reviewed and confirmed by me. Those systems with pertinent positive or negative responses have been documented in the HPI. All other systems are other negative and/or noncontributory. PHYSICAL EXAM: General Impression: Alert and oriented x3, not in acute distress HEENT: Normocephalic atraumatic, extra-ocular movements intact, pupils equal and reactive to light bilaterally, mucous membranes moist. Cardiovascular: Heart regular rate and rhythm, S1&S2 audible, no murmurs, rubs or gallops Chest: Lungs clear to auscultation bilaterally, no rhonchi, no wheeze, no rales Abdomen: Bowel sounds present, abdomen soft, non-tender, non-distended, no organomegaly Musculoskeletal: Pulses present and equal in all extremities, no peripheral edema Motor: no focal deficits noted Neurological: CN II-XII grossly intact, no focal motor or sensory deficits noted Skin: Intact with no visualized rashes Psych: Normal affect and mood ED course: 68-year-old female presents with clinical presentation of atypical chest pain with typical features. Patient does have multiple risk factors including history of myocardial infarction. Upon arrival are within acceptable limits. Laboratory evaluation obtained. CBC, metabolic panel, coag panel is unremarkable. Cardiac enzymes negative. Chest x-ray is nonacute. Patient is reevaluated at bedside. She is well-appearing and resting comfortably. Patient denies any chest pain currently. Given his clinical presentation is consistent with atypical chest pain with typical features. We will plan admission to observation for suture 0.6 cardiology consultation. EKG interpretation: Ventricular rate 59, sinus bradycardia, OH interval 144, QRS 92, QTc 431. No OH prolongation, no QTC prolongation, no ST. EKG compared to 12/21/2017 was evidence of new T-wave inversions in the anterior precordial leads. - Related Data Home Medications Medication Instructions Recorded Confirmed Atorvastatin Calcium [Lipitor] 40 mg PO DAILY 12/29/17 12/29/17 Citalopram Hydrobromide [CeleXA] 20 mg PO DAILY 12/29/17 12/29/17 Prochlorperazine [Compazine] 10 mg PO BID PRN 12/29/17 12/29/17 Ranitidine HCl [Zantac] 300 mg PO HS 12/29/17 12/29/17 Previous Rx's Medication Instructions Recorded Aspirin 81 mg PO DAILY chew 12/31/17 Hydrochlorothiazide 12.5mg Tab 12.5 mg PO DAILY #3 12/31/17 Lisinopril 30 mg PO DAILY #180 tablet 12/31/17 Metoprolol Tartrate [Lopressor] 12.5 mg PO BID #90 tab 12/31/17 Prasugrel [Effient] 10 mg PO DAILY #90 tab 12/31/17 Allergies Allergy/AdvReac Type Severity Reaction Status Date / Time Penicillins Allergy Unknown Verified 12/29/17 10:41 lactose AdvReac Nausea & Verified 12/29/17 14:41 Vomiting & Diarrhea Review of Systems ROS Statement: Those systems with pertinent positive or pertinent negative responses have been documented in the HPI. ROS Other: All systems not noted in ROS Statement are negative. Past Medical History Past Medical History: GERD/Reflux, Hyperlipidemia, Hypertension Additional Past Medical History / Comment(s): Chest pain, stress test-last in 2014 History of Any Multi-Drug Resistant Organisms: None Reported Past Surgical History: Hysterectomy Past Anesthesia/Blood Transfusion Reactions: No Reported Reaction Past Psychological History: No Psychological Hx Reported Smoking Status: Current every day smoker Past Alcohol Use History: None Reported Past Drug Use History: None Reported - Past Family History Mother Family Medical History: CVA/TIA, Hypertension Additional Family Medical History / Comment(s): "Circulation problems" Brother(s) Family Medical History: Hypertension Course Vital Signs 08/24/18 03:17 Temperature 98.6 F Pulse Rate 63 Respiratory 17 Rate Blood Pressure 116/81 O2 Sat by Pulse 98 Oximetry Medical Decision Making - Lab Data Result diagrams: 08/24/18 03:35 08/24/18 03:35 Lab Results 08/24/18 08/24/18 08/24/18 Range/Units 03:35 03:35 03:35 WBC 9.7 (3.8-10.6) k/uL RBC 5.00 (3.80-5.40) m/uL Hgb 15.2 (11.4-16.0) gm/dL Hct 46.6 H (34.0-46.0) % MCV 93.2 (80.0-100.0) fL MCH 30.3 (25.0-35.0) pg MCHC 32.6 (31.0-37.0) g/dL RDW 13.4 (11.5-15.5) % Plt Count 146 L (150-450) k/uL Neutrophils % 63 % Lymphocytes % 27 % Monocytes % 5 % Eosinophils % 2 % Basophils % 1 % Neutrophils # 6.2 (1.3-7.7) k/uL Lymphocytes # 2.6 (1.0-4.8) k/uL Monocytes # 0.5 (0-1.0) k/uL Eosinophils # 0.2 (0-0.7) k/uL Basophils # 0.0 (0-0.2) k/uL PT 10.4 (9.0-12.0) sec INR 1.0 (<1.2) APTT 25.9 (22.0-30.0) sec Sodium 141 (137-145) mmol/L Potassium 4.0 (3.5-5.1) mmol/L Chloride 108 H (98-107) mmol/L Carbon Dioxide 26 (22-30) mmol/L Anion Gap 7 mmol/L BUN 36 H (7-17) mg/dL Creatinine 1.23 H (0.52-1.04) mg/dL Est GFR (CKD-EPI)AfAm 52 (>60 ml/min/1.73 sqM) Est GFR (CKD-EPI)NonAf 45 (>60 ml/min/1.73 sqM) Glucose 113 H (74-99) mg/dL Calcium 9.4 (8.4-10.2) mg/dL Magnesium 1.8 (1.6-2.3) mg/dL Total Bilirubin 0.4 (0.2-1.3) mg/dL AST 23 (14-36) U/L ALT 21 (9-52) U/L Alkaline Phosphatase 79 (38-126) U/L Troponin I (0.000-0.034) ng/mL Total Protein 6.6 (6.3-8.2) g/dL Albumin 3.8 (3.5-5.0) g/dL Lipase 143 (23-300) U/L 08/24/18 Range/Units 03:35 WBC (3.8-10.6) k/uL RBC (3.80-5.40) m/uL Hgb (11.4-16.0) gm/dL Hct (34.0-46.0) % MCV (80.0-100.0) fL MCH (25.0-35.0) pg MCHC (31.0-37.0) g/dL RDW (11.5-15.5) % Plt Count (150-450) k/uL Neutrophils % % Lymphocytes % % Monocytes % % Eosinophils % % Basophils % % Neutrophils # (1.3-7.7) k/uL Lymphocytes # (1.0-4.8) k/uL Monocytes # (0-1.0) k/uL Eosinophils # (0-0.7) k/uL Basophils # (0-0.2) k/uL PT (9.0-12.0) sec INR (<1.2) APTT (22.0-30.0) sec Sodium (137-145) mmol/L Potassium (3.5-5.1) mmol/L Chloride (98-107) mmol/L Carbon Dioxide (22-30) mmol/L Anion Gap mmol/L BUN (7-17) mg/dL Creatinine (0.52-1.04) mg/dL Est GFR (CKD-EPI)AfAm (>60 ml/min/1.73 sqM) Est GFR (CKD-EPI)NonAf (>60 ml/min/1.73 sqM) Glucose (74-99) mg/dL Calcium (8.4-10.2) mg/dL Magnesium (1.6-2.3) mg/dL Total Bilirubin (0.2-1.3) mg/dL AST (14-36) U/L ALT (9-52) U/L Alkaline Phosphatase (38-126) U/L Troponin I <0.012 (0.000-0.034) ng/mL Total Protein (6.3-8.2) g/dL Albumin (3.5-5.0) g/dL Lipase (23-300) U/L Disposition Clinical Impression: Chest pain Disposition: ADMITTED IP TO THIS HOSP Condition: Fair Referrals: Dontrell Butler MD [Primary Care Provider] - 1-2 days Decision Time: 05:07
[2018-08-24 03:55] LABS: Basophils % (A) 1 %; Eosinophils # (A) 0.2 k/uL (0-0.7); Eosinophils % (A) 2 %; HCT 46.6 % (34.0-46.0); HGB 15.2 gm/dL (11.4-16.0); Lymphocytes # (A) 2.6 k/uL (1.0-4.8); Lymphocytes % (A) 27 %; MCH 30.3 pg (25.0-35.0); MCHC 32.6 g/dL (31.0-37.0); MCV 93.2 fL (80.0-100.0); Mean Platelet Volume 8.5; Monocytes # (A) 0.5 k/uL (0-1.0); Monocytes % (A) 5 %; Neutrophils # (A) 6.2 k/uL (1.3-7.7); Neutrophils % (A) 63 %; Platelet Count 146 k/uL (150-450); RDW 13.4 % (11.5-15.5); WBC 9.7 k/uL (3.8-10.6)
[2018-08-24 04:04] LABS: Albumin 3.8 g/dL (3.5-5.0); Calcium 9.4 mg/dL (8.4-10.2); Magnesium 1.8 mg/dL (1.6-2.3); Total Bilirubin 0.4 mg/dL (0.2-1.3); Total Protein 6.6 g/dL (6.3-8.2)
[2018-08-24 04:08] LABS: Partial Thromboplastin Time 25.9 sec (22.0-30.0); Prothrombin Time 10.4 sec (9.0-12.0)
--- NOTE | 2018-08-24 04:08 | XR ---
EXAM: XR Chest, 2 Views CLINICAL HISTORY: ITS.REASON XR Reason: Chest Pain TECHNIQUE: Frontal and lateral views of the chest. COMPARISON: 12/29/17 IMPRESSION: Cardiomegaly. Mild vascular congestion. No consolidation or pleural effusion.
[2018-08-24] MEDS ORDERED: NITROGLYCERIN SL TABS 0.4 MG TAB SUBLINGUAL PRN (05:05)
[2018-08-24 05:56] VITALS: BMI 37.5
[2018-08-24] MEDS ORDERED: PROCHLORPERAZINE 10 MG TAB PO PRN (06:58)
--- NOTE | 2018-08-24 06:58 | P.HPIM ---
History of Present Illness H&P Date: 08/24/18 Chief Complaint: Chest pain 68-year-old female with history of hypertension and paroxysmal A. fib, CAD Patient presents to the hospital with 1 hour duration chest pain started all of a sudden while getting ready to go to bed described as chest pressure central radiating to the left side with sharp pain 7-9 out of 10 in severity patient felt some labored breathing associated with that but denies any diaphoresis nausea vomiting palpitations or dizziness. Pain lasted for a while and she decided to call 911. Patient took some extra aspirin with no benefits. While patient was collecting her papers at home she felt that the pain was getting worse with ambulation and walking upstairs. Patient has improved while in the ED. Initial workup in the ED showed normal troponins, EKG sinus bradycardia. Patient reports an episode of diaphoresis that happened while she was air- conditioned building watching the dog show she also felt me that her heart was racing with that episode. Which went away with resting. She also describes couple episodes where her blood pressure monitor detected elevated blood pressure and at times irregular beats. Otherwise in the ED her labs showing mild thrombocytopenia. Slightly elevated creatinine and some signs of dehydration. Review of Systems Pertinent positives as noted in HPI. All other systems were reviewed and are negative Past Medical History Past Medical History: GERD/Reflux, Hyperlipidemia, Hypertension Additional Past Medical History / Comment(s): Chest pain, stress test-last in 2014 History of Any Multi-Drug Resistant Organisms: None Reported Past Surgical History: Hysterectomy Past Anesthesia/Blood Transfusion Reactions: No Reported Reaction Smoking Status: Current every day smoker - Past Family History Mother Family Medical History: CVA/TIA, Hypertension Additional Family Medical History / Comment(s): "Circulation problems" Brother(s) Family Medical History: Hypertension Medications and Allergies Home Medications Medication Instructions Recorded Confirmed Type Atorvastatin Calcium [Lipitor] 40 mg PO DAILY 12/29/17 12/29/17 History Citalopram Hydrobromide [CeleXA] 20 mg PO DAILY 12/29/17 12/29/17 History Prochlorperazine [Compazine] 10 mg PO BID PRN 12/29/17 12/29/17 History Ranitidine HCl [Zantac] 300 mg PO HS 12/29/17 12/29/17 History Aspirin 81 mg PO DAILY chew 12/31/17 Rx Hydrochlorothiazide 12.5mg Tab 12.5 mg PO DAILY #3 12/31/17 Rx Lisinopril 30 mg PO DAILY #180 tablet 12/31/17 Rx Metoprolol Tartrate [Lopressor] 12.5 mg PO BID #90 tab 12/31/17 Rx Prasugrel [Effient] 10 mg PO DAILY #90 tab 12/31/17 Rx Allergies Allergy/AdvReac Type Severity Reaction Status Date / Time Penicillins Allergy Unknown Verified 12/29/17 10:41 lactose AdvReac Nausea & Verified 12/29/17 14:41 Vomiting & Diarrhea Physical Exam Vitals: Vital Signs Temp Pulse Pulse Resp BP BP Pulse Ox 08/24/18 05:52 98 F 52 L 18 102/57 98 08/24/18 05:36 98.4 F 08/24/18 05:10 49 L 16 104/73 99 08/24/18 04:40 54 L 16 117/66 95 08/24/18 04:10 56 L 17 118/67 95 08/24/18 03:55 63 116/81 95 08/24/18 03:17 98.6 F 63 17 116/81 98 Intake and Output 08/23/18 08/23/18 08/24/18 14:59 22:59 06:59 Other: Weight 90.265 kg Constitutional: No acute distress, conversant, pleasant Eyes: Anicteric sclerae, moist conjunctiva, no lid-lag Pupils equal round reactive to light ENMT: NC/AT Oropharynx clear, no erythema, exudates Neck: Supple, FROM, no masses, or JVD No carotid bruits No thyromegaly Lungs: Clear to auscultation Clear to percussion Normal respiratory effort, no accessory muscle use Cardiovascular: Heart regular in rate and rhythm, No murmurs, gallops, or rubs No peripheral edema Abdominal: Soft Nontender, no guarding, rebound or rigidity Abdomen moving with respiration Normoactive bowel sounds No hepatomegaly, No splenomegaly No palpable mass No abdominal wall hernia noted Skin: Normal temperature, tone, texture, turgor No induration No subcutaneous nodules No rash, lesions No ulcers Extremities: No digital cyanosis No clubbing Pedal pulses intact and symmetrical Radial pulses intact and symmetrical No calf tenderness Psychiatric: Alert and oriented to person, place and time Appropriate affect fair judgement Neuro Muscles Strength 5/5 in all 4 extremities Sensation to light touch grossly present throughout Cranial nerves II-XII grossly intact No focal sensory deficits Lymphatics: no palpable cervical or supraclavicular , or inguinal lymph nodes Results CBC & Chem 7: 08/24/18 03:35 08/24/18 03:35 Labs: Abnormal Lab Results - Last 24 Hours (Table) 08/24/18 08/24/18 Range/Units 03:35 03:35 Hct 46.6 H (34.0-46.0) % Plt Count 146 L (150-450) k/uL Chloride 108 H (98-107) mmol/L BUN 36 H (7-17) mg/dL Creatinine 1.23 H (0.52-1.04) mg/dL Glucose 113 H (74-99) mg/dL Thrombosis Risk Factor Assmnt - Choose All That Apply Any of the Below Risk Factors Present?: Yes Each Factor Represents 1 point: Abnormal pulmonary function (COPD), Acute ND, Obesity (BMI >25) Other Risk Factors: Yes Each Risk Factor Represents 2 Points: Age 61-74 years Thrombosis Risk Factor Assessment Total Risk Factor Score: 5 Thrombosis Risk Factor Assessment Level: High Risk Assessment and Plan Assessment: 68-year-old female with history of coronary artery disease status post stenting of left circumflex, paroxysmal A. fib, hypertension. Admitted under observation with anticipated length of stay less than 48 hours for chest pain to rule out ACS. Plan: Atypical chest pain rule out ACS History of CAD status post stents Paroxysmal A. fib Hypertension Acute kidney injury Plan Avoid nephrotoxic meds IV fluid hydration Aspirin statin, nitro when necessary Trend cardiac enzymes Cardiology consult Cardiac monitoring Continue home meds Hold diuretics and PAWEL inhibitor DVT prophylaxis heparin subcu 3 times a day Preformed a thorough record review from recent hospitalization most recent hospitalization in December 2017 where she was diagnosed with acute coronary syndrome required stents in the left circumflex Surrogate decision-maker: CODE STATUS: Full code Discussed with: Patient, ER, Anticipated discharge: <[address]: Home A total of 60 minutes was spent on the care of this complex patient more than 50% of the time was spent in counseling and care coordination.
[2018-08-24] MEDS: CITALOPRAM HYDROBROMIDE 20 MG TAB PO SCH (09:03)
[2018-08-24] MEDS: ATORVASTATIN 40 MG TAB PO SCH (09:03)
[2018-08-24] MEDS: METOPROLOL TARTRATE 12.5 MG TAB PO SCH ×2 (09:03→21:16)
[2018-08-24] MEDS: PRASUGREL 10 MG TAB PO SCH (09:03)
[2018-08-24] MEDS: SODIUM CHLORIDE 0.9% 1,000 ML IV SCH ×2 (09:03→15:14)
[2018-08-24] MEDS: HEPARIN SODIUM,PORCINE 5,000 UNIT/ML 1 ML VIAL SQ SCH ×3 (09:04→22:33)
[2018-08-24] MEDS ORDERED: CAFFEINE CITRATE 60 MG/3 ML VIAL IV PRN (12:27)
[2018-08-24] MEDS ORDERED: REGADENOSON 0.4 MG/5 ML SYRINGE IV ONE (12:27)
[2018-08-24] MEDS ORDERED: AMINOPHYLLINE 500 MG/20 ML VIAL IV PRN (12:27)
--- NOTE | 2018-08-24 13:23 | P.PN ---
Progress Note - Text Progress Note Date: 08/24/18 68-year-old female with PMH of hypertension, paroxysmal atrial fibrillation, CAD presents the ED for chest pain. Her troponins have been less than 0.0122 with EKG showing sinus bradycardia and incomplete RBBB. Cardiology has evaluated the patient and plans for stress test tomorrow. We'll continue aspirin and Lipitor along with Prasugrel. Continue beta grace. Telemetry monitoring. Continue normal saline at 100 mL/h for acute kidney injury. Restart home medications. Discharge planning based on cardiology recommendations and results of stress test.
--- NOTE | 2018-08-24 14:32 | P.CRDCN ---
History of Present Illness Consult date: 08/24/18 Reason for Consult (text): Chest pain Chief complaint: Chest pain History of present illness: HISTORY OF PRESENT ILLNESS AND PLAN: This is a 68-year-old female with history of myocardial infarction, hypertension, dyslipidemia, GERD, NSTEMI, CAD status post PCI third obtuse marginal branch of circumflex (12/29/18) and current one pack per day smoker. Patient presents in the emergency department with complaints of chest pain described as significant 9 central sharp chest pain that radiated to the left chest wall. Patient states chest pain was worse with activity including shortness of breath and diaphoresis. Patient states while waiting for EMS she was gathering her medical papers and with movement the chest pain became worse 11/11. Patient follows with Dr. Perdomo in the office. Patient states symptoms were very similar to her first ID so she took aspirin at home prior to EMS arrival. Patient states she had some nausea and diarrhea the day prior to the chest pain. Patient currently lying in bed with no acute distress. Patient has no current complaints of chest pain, chest pressure, shortness of breath or palpitations. Pt had recent December 2017 PCI third obtuse marginal branch of circumflex 12/29/2018. Patient states she continues with all medications including aspirin and Effient at home. Unfortunately the patient continues to smoke one pack per day. SIGNIFICANT PAST MEDICAL HISTORY: myocardial infarction, hypertension, dyslipidemia, GERD, CAD status post PCI third obtuse marginal branch of circumflex (12/29/18) and current one pack per day smoker. PAST SURGICAL HISTORY: See list. EKG shows sinus rhythm, heart rate 60 bpm. Troponins negative x 2. SIGNIFICANT LABORATORY VALUES: BUN 36, CR 1.23. K 4.0. Magnesium 1.8. Chest x-ray within normal limits. Most recent echo dated = December 2017 indicates EF 55-60%, elevated PA pressures. . Most recent cardiac cath dated = December 2017, circumflex stenosis involving the third obtuse marginal. No evidence of significant obstructive disease in LAD and the right coronary artery. PCI to third obtuse marginal branch of circumflex. REVIEW OF SYSTEMS: CONSTITUTIONAL: No acute distress. EYES: Denies blurred vision. Denies blurred vision or vision changes. Denies eye pain. EARS, NOSE, MOUTH & THROAT: Denies headache. Denies sore throat. Denies ear pain Denies hemoptysis. CARDIOVASCULAR: Denies current chest pain. Denies current shortness of breath. Denies orthopnea. Denies PND. Denies palpitations. RESPIRATORY: Denies cough. Denies shortness of breath. GASTROINTESTINAL: Denies abdominal pain or distention. Denies diarrhea. Denies constipation. Denies nausea. Denies vomiting. MUSCULOSKELETAL: Denies myalgias. INTEGUMENTARY: Denies pruitis. Denies rash. ENDOCRINE: Complains of fatigue. Denies weight change. Denies polydipsia. Denies polyurina Denies heat/cold intolerance. GENITOURINARY: Denies burning, hematuria or urgency with micturation. HEMATOLOGIC: Denies history of anemia. Denies bleeding. NEUROLOGIC: Denies numbness. Denies tingling. Denies weakness. PSYCHIATRIC: Denies anxiety. Denies depression. PHYSICAL EXAM: VITAL SIGNS: Within normal limits. Afebrile. GENERAL: Well developed, in no acute distress. HEENT: Head is atraumatic, normocephalic. Pupils are equal, round. Extra ocular movements intact. Mucous membranes moist. Neck supple. No JVD. No carotid bruit. No thyromegaly. LUNGS: Clear to auscultation no wheezes, rales or rhonchi. No chest wall tenderness on palpation or with deep breathing. HEART: Regular rate and rhythm, no rubs or gallops. S1 and S2 heard. No murmur. ABDOMEN: Abdominal exam, WNL. Bowel sounds x4 quads. Soft, non-tender, without masses, organomegaly, or abdominal aorta enlargement. EXTREMITIES/VASCULAR: Extremities have easily palpable radial, femoral, dorsalis pedis and posterior tibial pulses. No cyanosis, calf tenderness. No BLE edema. NEUROLOGIC: Patient is awake, alert and oriented x3. No focal neurologic abnormalities. FINAL IMPRESSION: 1. Chest pain with shortness of breath and diaphoresis. 2. CAD status post PCI to circumflex Dec 2017. 3. NSTEMI history. 4. Hyperlipidemia. 5. Hypertension. PLAN: Patient to Lexiscan stress testing in a.m. Atypical chest pain. Continue current medication/medical regime with aspirin and Effient. Continue DVT prophylaxis with heparin SQ. Cardiac diet. Please call with questions or concerns. Thank you kindly for this consult. Nurse Practitioner note has been reviewed by the Physician. Signing provider agrees with the documented findings, assessment and plan of care. Past Medical History Past Medical History: GERD/Reflux, Hyperlipidemia, Hypertension Additional Past Medical History / Comment(s): Chest pain, stress test-last in 2014 History of Any Multi-Drug Resistant Organisms: None Reported Past Surgical History: Hysterectomy Past Anesthesia/Blood Transfusion Reactions: No Reported Reaction Smoking Status: Current every day smoker - Past Family History Mother Family Medical History: CVA/TIA, Hypertension Additional Family Medical History / Comment(s): "Circulation problems" Brother(s) Family Medical History: Hypertension Medications and Allergies Home Medications Medication Instructions Recorded Confirmed Type Atorvastatin Calcium [Lipitor] 40 mg PO DAILY 12/29/17 08/24/18 History Citalopram Hydrobromide [CeleXA] 20 mg PO DAILY 12/29/17 08/24/18 History Ranitidine HCl [Zantac] 300 mg PO HS 12/29/17 08/24/18 History Aspirin 81 mg PO DAILY chew 12/31/17 08/24/18 Rx Lisinopril 30 mg PO DAILY #180 tablet 12/31/17 08/24/18 Rx Prasugrel [Effient] 10 mg PO DAILY #90 tab 12/31/17 08/24/18 Rx Hydrochlorothiazide [Hydrodiuril] 12.5 mg PO DAILY 08/24/18 08/24/18 History Metoprolol Tartrate [Lopressor] 12.5 mg PO BID 08/24/18 08/24/18 History Allergies Allergy/AdvReac Type Severity Reaction Status Date / Time Penicillins Allergy Unknown Verified 08/24/18 07:57 lactose AdvReac Mild Nausea & Verified 08/24/18 07:57 Vomiting & Diarrhea Physical Exam Vitals: Vital Signs Temp Pulse Pulse Resp BP BP Pulse Ox 08/24/18 11:39 51 L 18 08/24/18 11:37 98.6 F 51 L 18 134/61 97 08/24/18 08:00 98.8 F 52 L 18 109/52 95 08/24/18 05:52 98 F 52 L 18 102/57 98 08/24/18 05:36 98.4 F 08/24/18 05:10 49 L 16 104/73 99 08/24/18 04:40 54 L 16 117/66 95 08/24/18 04:10 56 L 17 118/67 95 06/23/19 03:55 63 116/81 95 08/24/18 03:17 98.6 F 63 17 116/81 98 Intake and Output 08/23/18 08/24/18 08/24/18 22:59 06:59 14:59 Other: Weight 90.265 kg Results 08/24/18 03:35 08/24/18 03:35 Cardiac Enzymes 08/24/18 08/24/18 08/24/18 Range/Units 03:35 03:35 09:18 AST 23 (14-36) U/L Troponin I <0.012 <0.012 (0.000-0.034) ng/mL Coagulation 08/24/18 Range/Units 03:35 PT 10.4 (9.0-12.0) sec APTT 25.9 (22.0-30.0) sec CBC 08/24/18 Range/Units 03:35 WBC 9.7 (3.8-10.6) k/uL RBC 5.00 (3.80-5.40) m/uL Hgb 15.2 (11.4-16.0) gm/dL Hct 46.6 H (34.0-46.0) % Plt Count 146 L (150-450) k/uL Comprehensive Metabolic Panel 08/24/18 Range/Units 03:35 Sodium 141 (137-145) mmol/L Potassium 4.0 (3.5-5.1) mmol/L Chloride 108 H (98-107) mmol/L Carbon Dioxide 26 (22-30) mmol/L BUN 36 H (7-17) mg/dL Creatinine 1.23 H (0.52-1.04) mg/dL Glucose 113 H (74-99) mg/dL Calcium 9.4 (8.4-10.2) mg/dL AST 23 (14-36) U/L ALT 21 (9-52) U/L Alkaline Phosphatase 79 (38-126) U/L Total Protein 6.6 (6.3-8.2) g/dL Albumin 3.8 (3.5-5.0) g/dL Current Medications Generic Name Dose Route Start Last Admin Trade Name Freq PRN Reason Stop Dose Admin Aminophylline 100 mg 08/24/18 12:27 Aminophylline IV ONCE PRN Patient Response Aspirin 81 mg 08/25/18 09:00 Aspirin PO DAILY [facility] Atorvastatin Calcium 40 mg 08/24/18 09:00 08/24/18 09:03 Lipitor PO 40 mg DAILY SAMUEL Administration Caffeine Citrate 60 mg 08/24/18 12:27 Cafcit Inj IV ONCE PRN Patient Response Citalopram Hydrobromide 20 mg 08/24/18 09:00 08/24/18 09:03 Celexa PO 20 mg DAILY SAMUEL Administration Famotidine 40 mg 08/24/18 21:00 Pepcid PO HS SAMUEL Heparin Sodium (Porcine) 5,000 unit 08/24/18 08:00 08/24/18 09:04 Heparin SQ 5,000 unit Q8HR SAMUEL Administration Sodium Chloride 1,000 mls @ 100 mls/hr 08/24/18 07:00 08/24/18 09:03 Saline 0.9% IV 100 mls/hr .Q10H SAMUEL Administration Metoprolol Tartrate 12.5 mg 08/24/18 09:00 08/24/18 09:03 Lopressor PO 12.5 mg BID SAMUEL Administration Nicotine 1 patch 08/25/18 09:00 Habitrol 21mg/24hr Patch TRANSDERM DAILY [facility] Nitroglycerin 0.4 mg 08/24/18 05:05 Nitrostat SUBLINGUAL Q5M PRN Chest Pain Prasugrel 10 mg 08/24/18 09:00 08/24/18 09:03 Effient PO 10 mg DAILY SAMUEL Administration Prochlorperazine Maleate 10 mg 08/24/18 06:58 Compazine PO BID PRN Nausea Regadenoson 0.4 mg 08/24/18 12:27 Lexiscan IV 08/24/18 12:28 ONCE ONE Intake and Output 08/23/18 08/24/18 08/24/18 22:59 06:59 14:59 Other: Weight 90.265 kg 08/24/18 03:35 08/24/18 03:35 - EKG Interpretation EKG: sinus rhythm Assessment and Plan Plan: FINAL IMPRESSION: 1. Chest pain with shortness of breath and diaphoresis. 2. CAD status post PCI to circumflex. 3. NSTEMI history. 4. Hyperlipidemia. 5. Hypertension. PLAN: Patient to Lexiscan stress testing in a.m. Atypical chest pain. Continue current medication/medical regime with aspirin and Effient. Continue DVT prophylaxis with heparin SQ. Cardiac diet. Please call with questions or concerns. Thank you kindly for this consult.
[2018-08-24] MEDS ORDERED: NICOTINE 21MG/24HR PATCH TRANSDERM STA (20:16)
[2018-08-24] MEDS ORDERED: FAMOTIDINE 20 MG TAB PO SCH ×2 (21:00)
[2018-08-24 22:10] LABS: Cholesterol 138 mg/dL (<200); HDL Cholesterol 38 mg/dL (40-60); LDL Cholesterol,Calculated 65 mg/dL (0-99); Triglycerides 176 mg/dL (<150)
[2018-08-25] MEDS: SODIUM CHLORIDE 0.9% 1,000 ML IV SCH ×2 (02:34→12:27)
[2018-08-25 08:23] VITALS: RESP 16
[2018-08-25] MEDS ORDERED: ASPIRIN 81 MG PO SCH (09:00)
[2018-08-25] MEDS ORDERED: ASPIRIN 325 MG TAB PO SCH (09:00)
[2018-08-25] MEDS ORDERED: NICOTINE 21MG/24HR PATCH TRANSDERM SCH (09:00)
[2018-08-25] MEDS: HEPARIN SODIUM,PORCINE 5,000 UNIT/ML 1 ML VIAL SQ SCH ×2 (10:14→15:55)
[2018-08-25] MEDS: ATORVASTATIN 40 MG TAB PO SCH (10:16)
[2018-08-25] MEDS: PRASUGREL 10 MG TAB PO SCH (10:17)
[2018-08-25] MEDS: METOPROLOL TARTRATE 12.5 MG TAB PO SCH (10:17)
[2018-08-25] MEDS: CITALOPRAM HYDROBROMIDE 20 MG TAB PO SCH (10:17)
--- NOTE | 2018-08-25 11:23 | NM ---
EXAMINATION TYPE: NM stress lexiscan cardiolite DATE OF EXAM: 08/25/2018 COMPARISON: NONE HISTORY: Chest pain TECHNIQUE: After the intravenous administration of 10.4 mCi Tc 99m Sestamibi - Cardiolite resting SP ECT images acquired 45 minutes post injection. The patient received 0.4mg Lexiscan, 27 mCi Tc 99m Sestamibi - Stress images obtained 30 minutes post injection FINDINGS: Review of stress and rest SPECT images demonstrates no reversible perfusion abnormality. There is a m oderate approximately 5 segment defect in the anterior and lateral wall as well as the apex that is f ixed. This is greater on rest than stress imaging indicating some degree of artifact. Gated analysis shows dyskinesis of the anterior and lateral wall with an estimated left ventricular ejection fractio n of 69 %. TID is calculated within normal limits at 0.94. IMPRESSION: 1. No scintigraphic evidence for reversible ischemia. 2. Fixed defect in the distribution of the left anterior descending coronary artery and within the ci rcumflex coronary artery from prior infarct.
--- NOTE | 2018-08-25 11:26 | EST ---
EXERCISE STRESS AGE: 68 SEX: F HT: 5'8" WT: 195 PROTOCOL: Lexiscan Cardiolite Stress test HEART RATE REST: 48 BLOOD PRESSURE REST: 138/73 MAXIMUM HEART RATE ACHIEVED: 87 MAXIMUM BLOOD PRESSURE: 159/70 85% MPHR: 128 100% MPHR: 151 INDICATIONS: Chest pain. CLINICAL INFORMATION: Baseline rhythm is sinus mechanism, rate of 48, normal axis and intervals, minor nonspecific ST-T wave changes. Baseline blood pressure 138/73 mmHg. Patient received injection of Lexiscan. Electrocardiograph monitoring revealed no evidence of diagnostic ischemic ST deviation. Cardiolite was injected per protocol. CONCLUSION:: Nondiagnostic electrocardiograph stress testing. Nuclear images will be reported separately. MMODL / IJN: [id number] /
[2018-08-25 12:19] VITALS: TEMP 98.1
--- NOTE | 2018-08-25 13:27 | P.DS ---
Providers Date of admission: 08/24/18 05:06 Expected date of discharge: 08/25/18 Attending physician: Milo Devine MD Consults: 08/24/18 05:05 Consult Physician Urgent Consulting Provider: Fred Luz Consult Reason/Comments: chest pain Do you want consulting provider notified?: Yes Primary care physician: Dontrell Butler MD Hospital Course: 68-year-old female with history of hypertension and paroxysmal A. fib, CAD Patient presents to the hospital with 1 hour duration chest pain started all of a sudden while getting ready to go to bed described as chest pressure central radiating to the left side with sharp pain 7-9 out of 10 in severity patient felt some labored breathing associated with that but denies any diaphoresis nausea vomiting palpitations or dizziness. Pain lasted for a while and she decided to call 911. With regard to her chest pain, troponins was less than 0.012 3, with EKG showing sinus bradycardia and incomplete RBBB. Chest x-ray showed mild vascular congestion. Patient was evaluated by cardiology and recommended stress test. Stress test was obtained which was negative. She was continued on aspirin, Lipitor and Parasugrel. Lipid panel showed triglyceride of 176, HDL 38 and total cholesterol and LDL that was within normal limits. Patient was noted to have an acute kidney injury with a BUN of 36 and creatinine of 1.23. She was hydrated with normal saline at 100 mL per hour. Patient was seen and examined prior to discharge. No acute events overnight. Patient reports resolution of her chest pain. She denies any shortness of breath or palpitations. No nausea or vomiting. No fever or chills. Patient does complain of history of palpitations along with chest tightness. States that she was diagnosed with asthma or COPD and has never had any treatment. She is a continued smoker. General: [non toxic], [no distress], [appears at stated age] Derm: [warm], [dry] Head: [atraumatic], [normocephalic], [symmetric] Eyes: [EOMI], [no lid lag], [anicteric sclera] Mouth: [no lip lesion], [mucus membranes moist] Cardiovascular: [S1S2 reg], [bradycardia], [positive DP pulse bilateral], Lungs: [CTA bilateral], [no rhonchi, no rales] , [no accessory muscle use] Abdominal: [soft], [ nontender to palpation], [no guarding], [no appreciable organomegaly] Ext: [no gross muscle atrophy], [no edema], [no contractures] Neuro: [no focal neuro deficits] Psych: [Alert], [oriented], [appropriate affect] Assessment and Plan Atypical chest pain, rule out acute coronary syndrome CAD status post stents Paroxysmal atrial fibrillation Acute kidney injury Hypertension Troponins were less than 0.0123 with EKG showing sinus bradycardia and incomplete RBBB. Chest x-ray is negative. Cardiology was consulted and recommended stress test which was negative for inducible ischemia. We will discharge the patient home on an albuterol inhaler for her chest tightness. She has a questionable history of atrial fibrillation which has not been documented on EKGs. Patient would likely benefit from a Holter monitor. Continue aspirin, Lipitor and Parasugrel. Continue metoprolol.can restart lisinopril on discharge. Stable. Rate controlled with metoprolol. BUN 36, creatinine 1.23. Likely due to dehydration and lisinopril. Plans to hydrate with normal saline at 100 mL per hour. Follow repeat BMP prior to discharge. BP 142/67. Continue metoprolol. Restart lisinopril and discharge.monitor vitals, adjust medications as necessary. Stress test is negative. Patient has been cleared by cardiology. Discussed with cardiology, plans for a 30 day event monitor, follow-up with cardiology in the outpatient setting. Pertinent Studies: Stress tests, chest x-ray Patient Condition at Discharge: Stable Plan - Discharge Summary New Discharge Prescriptions: Continue Ranitidine HCl [Zantac] 300 mg PO HS Citalopram Hydrobromide [CeleXA] 20 mg PO DAILY Atorvastatin Calcium [Lipitor] 40 mg PO DAILY Aspirin 81 mg PO DAILY chew Prasugrel [Effient] 10 mg PO DAILY #90 tab Lisinopril 30 mg PO DAILY #180 tablet Hydrochlorothiazide [Hydrodiuril] 12.5 mg PO DAILY Metoprolol Tartrate [Lopressor] 12.5 mg PO BID Discharge Medication List Atorvastatin Calcium [Lipitor] 40 mg PO DAILY 12/29/17 [History] Citalopram Hydrobromide [CeleXA] 20 mg PO DAILY 12/29/17 [History] Ranitidine HCl [Zantac] 300 mg PO HS 12/29/17 [History] Aspirin 81 mg PO DAILY chew 12/31/17 [Rx] Lisinopril 30 mg PO DAILY #180 tablet 12/31/17 [Rx] Prasugrel [Effient] 10 mg PO DAILY #90 tab 12/31/17 [Rx] Hydrochlorothiazide [Hydrodiuril] 12.5 mg PO DAILY 08/24/18 [History] Metoprolol Tartrate [Lopressor] 12.5 mg PO BID 08/24/18 [History] Follow up Appointment(s)/Referral(s): Sarita Perdomo MD [STAFF PHYSICIAN] - 09/08/18 8:45 am Dontrell Butler MD [Primary Care Provider] - 1-2 days Patient Instructions/Handouts: Chest Pain (DC), Nuclear Stress Test (DC) Activity/Diet/Wound Care/Special Instructions: Diet, heart healthy Follow-up PCP within 1-2 days of discharge. Follow-up cardiology within 1 week of discharge. Please take all medications as advised. Discharge Disposition: HOME SELF-CARE
[2018-08-25 14:22] LABS: Calcium 8.7 mg/dL (8.4-10.2); Potassium 4.5 mmol/L (3.5-5.1)
[2018-08-25] MEDS ORDERED: LOSARTAN 50 MG TAB PO SCH (15:45)
[2018-08-25 15:54] VITALS: BP 136/63; PULSE 54
--- NOTE | 2018-08-25 16:06 | P.PN ---
Subjective Progress Note Date: 08/25/18 This is a 68-year-old female with history of myocardial infarction, hypertension, dyslipidemia, GERD, NSTEMI, CAD status post PCI third obtuse marginal branch of circumflex (12/29/18) and current one pack per day smoker. Patient presents in the emergency department with complaints of chest pain described as significant 9/10 central sharp chest pain that radiated to the left chest wall. Patient states chest pain was worse with activity including shortness of breath and diaphoresis. Patient states while waiting for EMS she was gathering her medical papers and with movement the chest pain became worse 9/10. Patient follows with Dr. Perdomo in the office. Patient states symptoms were very similar to her first [place] so she took aspirin at home prior to EMS arrival. Patient states she had some nausea and diarrhea the day prior to the chest pain. Patient currently lying in bed with no acute distress. Patient has no current complaints of chest pain, chest pressure, shortness of breath or palpitations. Pt had recent December 2017 PCI third obtuse marginal branch of circumflex 12/29/2018. Patient states she continues with all medications including aspirin and Effient at home. Unfortunately the patient continues to smoke one pack per day. Patient underwent a Lexiscan stress test today that was negative for any reversible ischemia. Hemodynamically stable today. No arrhythmias were noted on the monitor. Objective - Vital Signs Vital signs: Vital Signs Temp 98.1 F 08/25/18 12:00 Pulse 56 L 08/25/18 12:00 Resp 16 08/25/18 12:00 BP 178/75 08/25/18 12:00 Pulse Ox 98 08/25/18 12:00 Intake & Output 08/24/18 08/25/18 08/25/18 18:59 06:59 18:59 Intake Total 222 222 940 Balance 222 222 940 Weight 89.9 kg Intake: Intake, IV Titration 700 Amount Sodium Chloride 0.9% 1, 700 000 ml @ 100 mls/hr IV . Q10H SAMUEL Rx#:[id number] Oral 222 222 240 Other: # Voids 2 1 - Exam VITAL SIGNS: Within normal limits. Afebrile. GENERAL: Well developed, in no acute distress. HEENT: Head is atraumatic, normocephalic. Pupils are equal, round. Extra ocular movements intact. Mucous membranes moist. Neck supple. No JVD. No carotid bruit. No thyromegaly. LUNGS: Clear to auscultation no wheezes, rales or rhonchi. No chest wall tenderness on palpation or with deep breathing. HEART: Regular rate and rhythm, no rubs or gallops. S1 and S2 heard. No murmur. ABDOMEN: Abdominal exam, WNL. Bowel sounds x4 quads. Soft, non-tender, without masses, organomegaly, or abdominal aorta enlargement. EXTREMITIES/VASCULAR: Extremities have easily palpable radial, femoral, dorsalis pedis and posterior tibial pulses. No cyanosis, calf tenderness. No BLE edema. NEUROLOGIC: Patient is awake, alert and oriented x3. No focal neurologic abnormalities. - Labs CBC & Chem 7: 08/24/18 03:35 08/25/18 13:34 Labs: Abnormal Lab Results - Last 24 Hours (Table) 08/24/18 08/25/18 Range/Units 03:35 13:34 Chloride 110 H (98-107) mmol/L BUN 26 H (7-17) mg/dL Glucose 132 H (74-99) mg/dL Triglycerides 176 H (<150) mg/dL HDL Cholesterol 38 L (40-60) mg/dL Assessment and Plan Plan: FINAL IMPRESSION: 1. Chest pain with shortness of breath and diaphoresis. Jennifer scan stress test negative for any reversible ischemia 2. CAD status post PCI to circumflex Dec 2017. 3. NSTEMI history. 4. Hyperlipidemia. 5. Hypertension. Plan From cardiology's perspective, patient may be able to be discharged home today. We will make her a follow-up appointment to see Dr. Perdomo in the office post discharge. DNP note has been reviewed, I agree with a documented findings and plan of care. Patient was seen and examined.
[2018-08-26] MEDS ORDERED: METOPROLOL TARTRATE 12.5 MG TAB PO SCH (09:00)
== END 2018-08-25 17:58 | disposition home or self-care (01) ==
LOC: EC 03:16 → 3SCARD 05:06
PROVIDERS: ADMIT Internal Medicine; ATTEND Internal Medicine
DX: R07.89 Other chest pain (principal); R61 Generalized hyperhidrosis; R06.02 Shortness of breath; I25.10 Atherosclerotic heart disease of native coronary artery without angina pectoris; Z95.5 Presence of coronary angioplasty implant and graft; N17.9 Acute kidney failure, unspecified; I10 Essential (primary) hypertension; I48.0 Paroxysmal atrial fibrillation; I45.10 Unspecified right bundle-branch block; R00.1 Bradycardia, unspecified; E78.5 Hyperlipidemia, unspecified; K21.9 Gastro-esophageal reflux disease without esophagitis; F17.210 Nicotine dependence, cigarettes, uncomplicated; R11.0 Nausea; R19.7 Diarrhea, unspecified; I25.2 Old myocardial infarction; D69.6 Thrombocytopenia, unspecified; R79.89 Other specified abnormal findings of blood chemistry; E86.0 Dehydration; J44.9 Chronic obstructive pulmonary disease, unspecified; E66.9 Obesity, unspecified; Z68.37 Body mass index [BMI] 37.0-37.9, adult; Z90.710 Acquired absence of both cervix and uterus; Z79.82 Long term (current) use of aspirin; Z79.899 Other long term (current) drug therapy; Z79.02 Long term (current) use of antithrombotics/antiplatelets; Z91.011 Allergy to milk products; Z88.0 Allergy status to penicillin; Z82.3 Family history of stroke; Z82.49 Family history of ischemic heart disease and other diseases of the circulatory system
CPT/HCPCS: 96360; 96361 ×2; 96372 ×2; 99285; 36415; 93017; 80061; 80053; 80048; 83690; 83735; 84484; 85025; 85610; 85730; 71046; 78452; G0378 ×2; A9500; S4990 ×2; J1644 ×2; J2785

== ENCOUNTER 2020-04-17 14:41 | Observation (INO) | payer MEDICARE, OTHER ==
[2020-04-17] MEDS ORDERED: HEPARIN SODIUM,PORCINE 5,000 UNIT/ML 1 ML VIAL IV PRN (14:58)
--- NOTE | 2020-04-17 14:58 | ED ---
Chest Pain HPI - General Stated Complaint: Chest Pain Time Seen by Provider: 04/17/20 14:50 Source: RN notes reviewed - History of Present Illness Initial Comments: This is a 70-year-old female with a history of heart disease who was transferred from [facility] to this facility for further evaluation and higher level of care for unstable angina. Patient did present with complaints of the onset this morning of chest pain at around 40 5 AM. She did later go to the [facility] enzymes are negative as were the EKG she was started on heparin and nitroglycerin. He was given aspirin. She is transferred here for further evaluation and route she developed some palpitations. She has none that right now she states. No chest pain fevers chills nausea vomiting sweats cough or other symptoms at this point MD Complaint: chest pain - Related Data Home Medications Medication Instructions Recorded Confirmed Atorvastatin Calcium [Lipitor] 40 mg PO DAILY 12/29/17 08/24/18 Citalopram Hydrobromide [CeleXA] 20 mg PO DAILY 12/29/17 08/24/18 Ranitidine HCl [Zantac] 300 mg PO HS 12/29/17 08/24/18 hydroCHLOROthiazide [Hydrodiuril] 12.5 mg PO DAILY 08/24/18 08/24/18 Losartan Potassium 100 mg PO DAILY 08/25/18 08/25/18 Previous Rx's Medication Instructions Recorded Aspirin 81 mg PO DAILY chew 12/31/17 Prasugrel [Effient] 10 mg PO DAILY #90 tab 12/31/17 lisinopriL 30 mg PO DAILY #180 tablet 12/31/17 Metoprolol Tartrate [Lopressor] 12.5 mg PO HS #30 dose 08/25/18 Allergies Allergy/AdvReac Type Severity Reaction Status Date / Time Penicillins Allergy Unknown Verified 04/17/20 15:02 lactose AdvReac Mild Nausea & Verified 04/17/20 15:02 Vomiting & Diarrhea Review of Systems ROS Statement: Those systems with pertinent positive or pertinent negative responses have been documented in the HPI. ROS Other: All systems not noted in ROS Statement are negative. Past Medical History Past Medical History: GERD/Reflux, Hyperlipidemia, Hypertension Additional Past Medical History / Comment(s): Chest pain, stress test-last in 2014 History of Any Multi-Drug Resistant Organisms: None Reported Past Surgical History: Hysterectomy Past Anesthesia/Blood Transfusion Reactions: No Reported Reaction Past Psychological History: No Psychological Hx Reported Past Alcohol Use History: None Reported Past Drug Use History: None Reported - Past Family History Mother Family Medical History: CVA/TIA, Hypertension Additional Family Medical History / Comment(s): "Circulation problems" Brother(s) Family Medical History: Hypertension General Exam - General Exam Comments Initial Comments: this is a well-developed well-nourished awake alert oriented 3 female General appearance: alert, in no apparent distress Head exam: Present: atraumatic, normocephalic, normal inspection Eye exam: Present: normal appearance, PERRL, EOMI. Absent: scleral icterus, conjunctival injection, periorbital swelling ENT exam: Present: normal exam, mucous membranes moist Neck exam: Present: normal inspection. Absent: tenderness, meningismus, lymphadenopathy Respiratory exam: Present: normal lung sounds bilaterally. Absent: respiratory distress, wheezes, rales, rhonchi, stridor Cardiovascular Exam: Present: regular rate, normal rhythm, normal heart sounds. Absent: systolic murmur, diastolic murmur, rubs, gallop, clicks GI/Abdominal exam: Present: soft, normal bowel sounds. Absent: distended, tenderness, guarding, rebound, rigid Extremities exam: Present: normal inspection, full ROM, normal capillary refill. Absent: tenderness, pedal edema, joint swelling, calf tenderness Back exam: Present: normal inspection Neurological exam: Present: alert, oriented X3, CN II-XII intact Psychiatric exam: Present: normal affect, normal mood Skin exam: Present: warm, dry, intact, normal color. Absent: rash Course Vital Signs 04/17/20 15:00 Temperature 98.3 F Pulse Rate 55 L Respiratory 20 Rate Blood Pressure 147/70 O2 Sat by Pulse 99 Oximetry Chest Pain MDM - MDM Did review the materials recently presenting hospital the patient be admitted with consultation bycardiology. Discussed with Dr. Knight Disposition Clinical Impression: Unstable angina pectoris Disposition: ADMITTED IP TO THIS HOSP Condition: Stable Referrals: Dontrell Butler MD [Primary Care Provider] - 1-2 days
[2020-04-17] MEDS ORDERED: HEPARIN SOD,PORK IN 0.45% NACL 25,000 UNIT in 0.45% NACL 1 250ML.BAG IV SCH (15:00)
[2020-04-17] MEDS ORDERED: NITROGLYCERIN SL TABS 0.4 MG TAB SUBLINGUAL PRN (15:04)
[2020-04-17] MEDS ORDERED: ACETAMINOPHEN TAB 500 MG TAB PO STA (15:08)
[2020-04-17] MEDS: SODIUM CHLORIDE 0.9% 1,000 ML IV SCH (15:18)
[2020-04-17 16:19] LABS: Partial Thromboplastin Time 98.5 sec (22.0-30.0)
[2020-04-17] MEDS ORDERED: NALOXONE 0.4 MG/ML 1 ML VIAL IV PRN (16:37)
[2020-04-17] MEDS ORDERED: ONDANSETRON 4 MG/2 ML VIAL IVP PRN (16:37)
[2020-04-17] MEDS ORDERED: MORPHINE SULFATE 4 MG/ML SYRINGE IV PRN (16:37)
[2020-04-17] MEDS ORDERED: ACETAMINOPHEN TAB 325 MG TAB PO PRN (16:37)
--- NOTE | 2020-04-17 16:41 | P.HPIM ---
History of Present Illness H&P Date: 04/17/20 Chief Complaint: chest pain 70 year old woman with history of CAD, HTN, HLD, DM presented with chest pain. She was transferred here for from [facility] for further management. She described her pain as substernal pressure with left sided sharpness. Not related to position or breathing. She also described associated symptoms of nausea, vomiting, sweats, dyspnea, diarrhea, chills, and hot flashes. Pt also reported taking her BP and pulse and noting it to be high, and with rates in the 150-170 range. In [facility], patient was loaded with aspirin, and started on heparin gtt. She was also given nitro. Pt says her symptoms are now mostly resolved, however, she did note an additional episode of palpitations while en route from [facility] to here. In [facility], patients EKG did not show ischemic change, CXR was clear, and troponins were negative. Here patient is HDS, with sinus bradycardia and RBBB. Review of Systems All Systems reviewed and pertinent positives and negatives noted in HPI, all other symptoms are negative Past Medical History Past Medical History: GERD/Reflux, Hyperlipidemia, Hypertension Additional Past Medical History / Comment(s): Chest pain, stress test-last in 2014 History of Any Multi-Drug Resistant Organisms: None Reported Past Surgical History: Hysterectomy Past Anesthesia/Blood Transfusion Reactions: No Reported Reaction Past Psychological History: No Psychological Hx Reported Past Alcohol Use History: None Reported Past Drug Use History: None Reported - Past Family History Mother Family Medical History: CVA/TIA, Hypertension Additional Family Medical History / Comment(s): "Circulation problems" Brother(s) Family Medical History: Hypertension Medications and Allergies Home Medications Medication Instructions Recorded Confirmed Type RX: Atorvastatin Calcium [Lipitor] 40 mg PO DAILY 12/29/17 08/24/18 History RX: Citalopram Hydrobromide 20 mg PO DAILY 12/29/17 08/24/18 History [CeleXA] RX: hydroCHLOROthiazide 12.5 mg PO DAILY 08/24/18 08/24/18 History [Hydrodiuril] Losartan Potassium 100 mg PO DAILY 08/25/18 08/25/18 History RX: Aspirin 162 mg PO HS 04/17/20 04/17/20 History RX: Famotidine 20 mg PO HS 04/17/20 04/17/20 History Allergies Allergy/AdvReac Type Severity Reaction Status Date / Time Penicillins Allergy Unknown Verified 04/17/20 15:40 lactose AdvReac Mild Nausea & Verified 04/17/20 15:40 Vomiting & Diarrhea Physical Exam Osteopathic Statement: *. No significant issues noted on an osteopathic structural exam other than those noted in the History and Physical/Consult. Vitals: Vital Signs Temp Pulse Resp BP Pulse Ox 04/17/20 15:00 98.3 F 55 L 20 147/70 99 Intake and Output 04/17/20 04/17/20 04/17/20 06:59 14:59 22:59 Other: Weight 79.379 kg Gen: awake, alert HEENT: normocephalic, atraumatic, good hearing acuity, moist mucous membranes Resp: good air exchange, breathing comfortably with no accessory muscle use, clear to auscultation bilaterally without wheezes CVS: good distal perfusion x 4, bradycardic, regular rhythm, no murmurs GI: soft, NTTP, ND : no SPT, no CVAT, rawls catheter not present MSK: no pitting edema, no clubbing Neuro: non-focal, moving all extremities Psych: cooperative, euthymic mood Assessment and Plan Assessment: 1. Chest Pain 2. CAD 3. HTN 4. HLD 5. DM II 6. Anxiety 70 year old woman with HTN/HLD/DMII/CAD, anxiety presented with chest pain, admitted for ACS rule out. Plan: - admit to telemetry, observation - trend troponins - EKG/Nitro PRN for chest pain - pain control: tylenol PRN + morphine PRN - nausea control: zofran PRN - cardiology consult - continue ASA - continue statin - continue heparin gtt - continue HCTZ and losartan - echo, pending - continue citalopram - TSH, lipid panel, a1c in the AM Full Code DVT PPx: on heparin gtt
[2020-04-17 18:02] LABS: Glucose,Whole Blood 86 mg/dL (75-99)
[2020-04-17] MEDS ORDERED: FAMOTIDINE 20 MG TAB PO SCH (21:00)
[2020-04-17] MEDS ORDERED: METOPROLOL TARTRATE 12.5 MG TAB PO SCH (21:00)
[2020-04-17] MEDS: FAMOTIDINE 20 MG TAB PO SCH (23:05)
[2020-04-18 07:13] LABS: Partial Thromboplastin Time 92.6 sec (22.0-30.0)
[2020-04-18] MEDS ORDERED: CLINDAMYCIN 300 MG in DEXTROSE 5% IN WATER 50 ML IVPB STA ×2 (08:41)
[2020-04-18] MEDS ORDERED: SODIUM CHLORIDE 0.9% 1,000 ML IV SCH (08:45)
[2020-04-18] MEDS ORDERED: PRASUGREL 10 MG TAB PO SCH (09:00)
[2020-04-18] MEDS ORDERED: CITALOPRAM HYDROBROMIDE 20 MG TAB PO SCH (09:00)
[2020-04-18] MEDS ORDERED: ATORVASTATIN 40 MG TAB PO SCH (09:00)
[2020-04-18] MEDS ORDERED: lisinopriL 20 MG TAB PO SCH (09:00)
[2020-04-18] MEDS ORDERED: hydroCHLOROthiazide 12.5 MG CAP PO SCH (09:00)
[2020-04-18] MEDS ORDERED: ASPIRIN 81 MG PO SCH ×2 (09:00)
[2020-04-18] MEDS ORDERED: LOSARTAN 50 MG TAB PO SCH (09:00)
[2020-04-18] MEDS ORDERED: ASPIRIN 325 MG TAB PO SCH (09:00)
[2020-04-18] MEDS: FAMOTIDINE 20 MG TAB PO SCH (09:16)
[2020-04-18 09:34] LABS: Basophils # (A) 0.04 X 10*3/uL (0.00-0.10); Basophils % (A) 0.5 %; Eosinophils # (A) 0.19 X 10*3/uL (0.04-0.35); Eosinophils % (A) 2.4 %; HCT 43.6 % (37.2-46.3); HGB 14.1 g/dL (12.0-15.0); Lymphocytes # (A) 2.51 X 10*3/uL (0.90-5.00); Lymphocytes % (A) 31.2 %; MCH 30.1 pg (27.0-32.0); MCHC 32.3 g/dL (32.0-37.0); Mean Platelet Volume 12.3 fL (9.5-12.2); Monocytes % (A) 7.5 %; Neutrophils % (A) 58.3 %; Platelet Count 136 X 10*3/uL (140-440); RBC 4.69 X 10*6/uL (4.10-5.20); WBC 8.05 X 10*3/uL (4.50-10.00)
[2020-04-18] MEDS ORDERED: SODIUM CHLORIDE 0.9% 250 ML IV ONE (09:54)
[2020-04-18 10:04] LABS: African American GFR (CKD) 74.6 (60.0-200.0); BUN/Creat Ratio 24.44 Ratio (12.00-20.00); Chol/HDL Ratio 3.78; LDL Cholesterol,Calculated 66.4 mg/dL (0.0-131.0); Magnesium 1.7 mg/dL (1.5-2.4); Non-African American GFR(CKD) 64.3 (60.0-200.0); Potassium 3.7 mmol/L (3.5-5.5); VLDL Calculation 22.6 mg/dL (5.00-40.00)
[2020-04-18] MEDS ORDERED: LIDOCAINE 1% INJ 10MG/ML (20 ML MDV) SQ ONE (10:07)
[2020-04-18] MEDS ORDERED: MIDAZOLAM 2 MG/2 ML VIAL IV ONE (10:07)
--- NOTE | 2020-04-18 10:20 | P.EPPROC ---
- EP Procedure Note Electrophysiology Procedure Note: Loop monitor implant Primary physicians: [employer] Officer: Dr. Perdomo Indication: Rapid heartbeat associated with symptoms of chest discomfort, very symptomatic but infrequent episodes Patient was brought to the EP lab in a fasting state. Written informed consent was obtained prior to the procedure. The left pectoral area was prepped and draped per protocol. Intravenous antibiotic was administered preoperatively. A subcutaneous Loop monitor was implanted successfully and the wound was closed per protocol. The device was programmed to detect significant nathaniel- arrhythmic and tachy-arrhythmic events, per protocol. Device and programming details: A. fib detection protocol Patient underwent EP procedure under conscious sedation/moderate sedation, monitoring of the level of consciousness and physiologic parameters including but not limited to vital signs and oxygenation. Patient tolerated the procedure well without any acute complications. Start time: 1006 Stop time: 1014
--- NOTE | 2020-04-18 10:23 | P.CRDCN ---
History of Present Illness History of present illness: tightness in the chest while watching tv HISTORY OF PRESENTING ILLNESS This is a pleasant 70-year-old female past medical history significant for artery disease status post PCI to the ostial OM 2017, hypertension and dyslipidemia. She follows in the office with Dr. Perdomo. We have been asked to see in consultation for chest pain. She states last evening she was sitting down in her chair watching television when she started feeling a tight sensation in her chest. The pain was described as a tight and sharp sensation. She felt mildly short of breath and also felt some palpitations. She states she checked her blood pressure and at that time her blood pressure was elevated and her heart was beating at 150 bpm. She took sublingual nitroglycerin and subsequently thereafter she started feeling diaphoretic, lightheaded, nauseated and vomited once. She initially presented to [facility]. EKG from there and done here 2 all reveal sinus mechanism. She does state that her symptoms had started to subside by the time she arrived in the emergency department. EMS telemetry tracings reveal sinus rhythm with frequent PACs. Telemetry tracings here revealed persistent sinus mechanism. Chest x-ray [facility] was negative for an acute cardiopulmonary process. Laboratory data reviewed, CBC unremarkable, sodium 141, potassium 3.7, creatinine 0.9, magnesium 1.7, cardiac enzymes negative 3, LDL 66, HDL 32 and TSH 1.24. Current daily cardiac medications include losartan 100 mg daily, atorvastatin 40 mg daily, aspirin 162 mg daily and hydrochlorothiazide 18.75 mg daily. The patient states she has intermittent episodes like this where she has chest tightness associated with palpitations that occur randomly with no specific precipitating factors sometimes could occur monthly other times it could be 3 months in between episodes. She underwent a Lexiscan stress test August 2018 revealing a fixed defect with no evidence of reversibility. Most recent echocardiogram obtained in 2018 reveals preserved LV systolic function with ejection fraction 55-60%. REVIEW OF SYSTEMS At the time of my exam: CONSTITUTIONAL: Denies fever or chills. CARDIOVASCULAR: Denies chest pain, shortness of breath, orthopnea, PND or palpitations. RESPIRATORY: Denies cough. GASTROINTESTINAL: Denies abdominal pain, diarrhea, constipation, nausea or vomiting. MUSCULOSKELETAL: Denies myalgias. NEUROLOGIC: Denies numbness, tingling, headacbe or weakness. ENDOCRINE: Denies fatigue, weight change, polydipsia or polyurina. GENITOURINARY: Denies burning, hematuria or urgency with micturation. HEMATOLOGIC: Denies history of anemia or bleeding. PHYSICAL EXAMINATION Blood pressure 117/65 heart rate 54 afebrile and maintaining oxygen saturation on room air. CONSTITUTIONAL: No apparent distress. HEENT: Head is normocephalic. Pupils are equal, round. Sclerae anicteric. Mucous membranes of the mouth are moist. No JVD. No carotid bruit. CHEST EXAMINATION: Lungs are clear to auscultation. No chest wall tenderness is noted on palpation or with deep breathing. HEART EXAMINATION: Regular rate and rhythm. S1, S2 heard. No murmurs, gallops or rub. ABDOMEN: Soft, nontender. Positive bowel sounds. EXTREMITIES: 2+ peripheral pulses, no lower extremity edema and no calf tenderness. NEUROLOGIC EXAMINATION: Patient is awake, alert and oriented x3. ASSESSMENT Chest pain, atypical Palpitations Coronary artery disease status post PCI 2018 Hypertension Dyslipidemia PLAN An acute coronary event has been ruled out. Symptoms likely related to underlying arrhythmia, suspect atrial fibrillation. Although this has not been documented or proven by telemetry or EKG thus far. The patient has been asymptomatic since arriving at the hospital. Given her symptoms occur infrequently we recommend implantation of loop recorder for definitive diagnosis. The procedure has been explained to the patient in detail and she is agreeable to move forward. This will be scheduled for this morning with Dr. Young. Once this is completed she may be discharged home from a cardiac perspective to follow-up in the office with Dr. Perdomo. Decrease aspirin to 81 mg daily. Thank you kindly for this consultation. Nurse Practitioner note has been reviewed, I agree with a documented findings and plan of care. Patient was seen and examined. Past Medical History Past Medical History: GERD/Reflux, Hyperlipidemia, Hypertension Additional Past Medical History / Comment(s): Chest pain, stress test-last in 2014 History of Any Multi-Drug Resistant Organisms: None Reported Past Surgical History: Hysterectomy Past Anesthesia/Blood Transfusion Reactions: No Reported Reaction Past Psychological History: No Psychological Hx Reported Past Alcohol Use History: None Reported Past Drug Use History: None Reported - Past Family History Mother Family Medical History: CVA/TIA, Hypertension Additional Family Medical History / Comment(s): "Circulation problems" Brother(s) Family Medical History: Hypertension Father Additional Family Medical History / Comment(s): Pt's father young and she states she does not know his medical history. Medications and Allergies Home Medications Medication Instructions Recorded Confirmed Type Atorvastatin Calcium [Lipitor] 40 mg PO HS 12/29/17 04/17/20 History Citalopram Hydrobromide [CeleXA] 20 mg PO HS 12/29/17 04/17/20 History hydroCHLOROthiazide [Hydrodiuril] 18.75 mg PO HS 08/24/18 04/17/20 History Losartan Potassium 100 mg PO HS 08/25/18 04/17/20 History Aspirin 162 mg PO HS 04/17/20 04/17/20 History Famotidine 20 mg PO HS 04/17/20 04/17/20 History Allergies Allergy/AdvReac Type Severity Reaction Status Date / Time Penicillins Allergy Unknown Verified 04/17/20 15:40 lactose AdvReac Mild Nausea & Verified 04/17/20 15:40 Vomiting & Diarrhea Physical Exam Vitals: Vital Signs Temp Pulse Resp BP Pulse Ox 04/18/20 07:23 98.5 F 53 L 22 142/78 98 04/18/20 06:00 56 L 24 143/74 97 04/18/20 05:00 55 L 18 144/68 98 04/18/20 03:11 97.7 F 56 L 20 145/61 98 04/17/20 23:48 76 20 170/86 95 04/17/20 23:06 98.1 F 52 L 20 182/80 04/17/20 19:53 54 L 18 140/69 97 04/17/20 17:56 141/70 04/17/20 17:55 55 L 20 98 04/17/20 16:49 55 L 20 128/70 98 04/17/20 15:00 98.3 F 55 L 20 147/70 99 Intake and Output 04/17/20 04/18/20 04/18/20 22:59 06:59 14:59 Intake Total 15.24 49.693 Balance 15. 49.693 Intake: Intake, IV Titration 15.24 49.693 Amount Heparin Sod,Pork in 0.45% 15. 49.693 NaCl 25,000 unit In 0.45 % NaCl 1 250ml.bag @ 12 UNITS/KG/HR 9.525 mls/hr IV .Q24H SAMUEL Rx#: [id number] Other: Weight 79.379 kg Results 04/18/20 04:06 04/18/20 04:06 Cardiac Enzymes 04/17/20 04/17/20 Range/Units 15:30 18:26 Troponin I <0.012 <0.012 (0.000-0.034) ng/mL Coagulation 04/17/20 04/17/20 04/18/20 Range/Units 15:30 23:49 04:06 PT 11.0 11.0 (9.0-12.0) sec APTT 98.5 H 33.1 H 92.6 H (22.0-30.0) sec Current Medications Generic Name Dose Route Start Last Admin Trade Name Freq PRN Reason Stop Dose Admin Acetaminophen 650 mg 04/17/20 16:37 Acetaminophen Tab 325 Mg Tab PO Q6HR PRN Mild Pain or Fever > 100.5 Aspirin 325 mg 04/18/20 09:00 Aspirin 325 Mg Tab PO DAILY [facility] Atorvastatin Calcium 40 mg 04/18/20 09:00 Atorvastatin 40 Mg Tab PO DAILY [facility] Citalopram Hydrobromide 20 mg 04/18/20 09:00 Citalopram Hydrobromide 20 Mg Tab PO DAILY [facility] Famotidine 20 mg 04/17/20 21:00 04/17/20 23:05 Famotidine 20 Mg Tab PO 20 mg BID SAMUEL Administration Heparin Sodium (Porcine) 0 unit 04/17/20 14:58 04/18/20 01:36 Heparin Sodium,Porcine 5,000 Unit/Ml 1 Ml Vial IV 4,000 unit PER PROTOCOL PRN Administration Low PTT Protocol Hydrochlorothiazide 12.5 mg 04/18/20 09:00 Hydrochlorothiazide 12.5 Mg Cap PO DAILY [facility] Heparin Sodium/Sodium Chloride 250 mls @ 9.525 mls/hr 04/17/20 15:00 04/18/20 00:49 25,000 unit/ Sodium Chloride IV 12.01 units/kg/hr .Q24H SAMUEL 9.533 mls/hr Titration Protocol 12 UNITS/KG/HR Sodium Chloride 1,000 mls @ 20 mls/hr 04/17/20 15:15 04/17/20 15:18 Saline 0.9% IV 20 mls/hr .Q24H SAMUEL Administration Losartan Potassium 100 mg 04/18/20 09:00 Losartan 50 Mg Tab PO DAILY [facility] Morphine Sulfate 4 mg 04/17/20 16:37 Morphine Sulfate 4 Mg/Ml Syringe IV Q4HR PRN Severe Pain Naloxone HCl 0.2 mg 04/17/20 16:37 Naloxone 0.4 Mg/Ml 1 Ml Vial IV Q2M PRN Opioid Reversal Nitroglycerin 0.4 mg 04/17/20 15:04 Nitroglycerin Sl Tabs 0.4 Mg Tab SUBLINGUAL Q5M PRN Chest Pain Ondansetron HCl 4 mg 04/17/20 16:37 Ondansetron 4 Mg/2 Ml Vial IVP Q8HR PRN Nausea And Vomiting Intake and Output 04/17/20 04/18/20 04/18/20 22:59 06:59 14:59 Intake Total 15.24 49.693 Balance 15. 49.693 Intake: Intake, IV Titration 15.24 49.693 Amount Heparin Sod,Pork in 0.45% 15. 49.693 NaCl 25,000 unit In 0.45 % NaCl 1 250ml.bag @ 12 UNITS/KG/HR 9.525 mls/hr IV .Q24H [facility] Rx#: [id number] Other: Weight 79.379 kg
--- NOTE | 2020-04-18 10:24 | P.CRDCN ---
History of Present Illness History of present illness: Patient presented with chest discomfort. However on more detailed questioning she felt her heart was racing and in the past and EMS brought her to the hospital for the same symptoms the second that her heart was racing and irregular She is very infrequent episodes Cardiac enzymes are normal 3. She had discomfort in the chest for 3 hours Twelve-lead EKG normal Plan implantation of a loop monitor to diagnose her arrhythmia This was discussed with the patient, the rationale was explained and she is agreeable with the plan Please see nurse practitioner note Past Medical History Past Medical History: GERD/Reflux, Hyperlipidemia, Hypertension Additional Past Medical History / Comment(s): Chest pain, stress test-last in 2014 Last Myocardial Infarction Date:: 2017 History of Any Multi-Drug Resistant Organisms: None Reported Past Surgical History: Hysterectomy Additional Past Surgical History / Comment(s): Colonoscopy/polypectomy Past Anesthesia/Blood Transfusion Reactions: No Reported Reaction Date of Last Stent Placement:: 2017 Past Psychological History: No Psychological Hx Reported Past Alcohol Use History: None Reported Past Drug Use History: None Reported - Past Family History Mother Family Medical History: CVA/TIA, Hypertension Additional Family Medical History / Comment(s): "Circulation problems" Brother(s) Family Medical History: Hypertension Father Additional Family Medical History / Comment(s): Pt's father young and she s tates she does not know his medical history. Medications and Allergies Home Medications Medication Instructions Recorded Confirmed Type Atorvastatin Calcium [Lipitor] 40 mg PO HS 12/29/17 04/17/20 History Citalopram Hydrobromide [CeleXA] 20 mg PO HS 12/29/17 04/17/20 History hydroCHLOROthiazide [Hydrodiuril] 18.75 mg PO HS 08/24/18 04/17/20 History Losartan Potassium 100 mg PO HS 08/25/18 04/17/20 History Aspirin 162 mg PO HS 04/17/20 04/17/20 History Famotidine 20 mg PO HS 04/17/20 04/17/20 History Allergies Allergy/AdvReac Type Severity Reaction Status Date / Time Penicillins Allergy Unknown Verified 04/17/20 15:40 lactose AdvReac Mild Nausea & Verified 04/17/20 15:40 Vomiting & Diarrhea Physical Exam Vitals: Vital Signs Temp Pulse Pulse Resp BP BP Pulse Ox 04/18/20 08:50 98 F 54 L 17 117/65 93 L 04/18/20 08:00 54 L 17 04/18/20 07:23 98.5 F 53 L 22 142/78 98 04/18/20 06:00 56 L 24 143/74 97 04/18/20 05:00 55 L 18 144/68 98 04/18/20 03:11 97.7 F 56 L 20 145/61 98 04/17/20 23:48 76 20 170/86 95 04/17/20 23:06 98.1 F 52 L 20 182/80 04/17/20 20:00 54 L 17 04/17/20 19:53 54 L 18 140/69 97 04/17/20 17:56 141/70 04/17/20 17:55 55 L 20 98 04/17/20 16:49 55 L 20 128/70 98 04/17/20 15:00 98.3 F 55 L 20 147/70 99 Intake and Output 04/17/20 04/18/20 04/18/20 22:59 06:59 14:59 Intake Total 15.24 49.693 102 Balance 15.24 49.693 102 Intake: IV 102 Intake, IV Titration 15.24 49.693 Amount Heparin Sod,Pork in 0.45% 15.24 49.693 NaCl 25,000 unit In 0.45 % NaCl 1 250ml.bag @ 12 UNITS/KG/HR 9.525 mls/hr IV .Q24H [facility] Rx#: [id number] Other: Voiding Method Toilet # Voids 1 1 1 Weight 79.379 kg 79.379 kg Results 04/18/20 04:06 04/18/20 04:06 Cardiac Enzymes 04/17/20 04/17/20 Range/Units 15:30 18:26 Troponin I <0.012 <0.012 (0.000-0.034) ng/mL Coagulation 04/17/20 04/17/20 04/18/20 Range/Units 15:30 23:49 04:06 PT 11.0 11.0 (9.0-12.0) sec APTT 98.5 H 33.1 H 92.6 H (22.0-30.0) sec Lipids 04/18/20 Range/Units 04:06 Triglycerides 113.0 (0.0-149.0) mg/dL Cholesterol 121 (0-200) mg/dL HDL Cholesterol 32.0 L (40.0-60.0) mg/dL Cholesterol/HDL Ratio 3.78 CBC 04/18/20 Range/Units 04:06 WBC 8.05 (4.50-10.00) X 10*3/uL RBC 4.69 (4.10-5.20) X 10*6/uL Hgb 14.1 (12.0-15.0) g/dL Hct 43.6 (37.2-46.3) % Plt Count 136 L (140-440) X 10*3/uL Comprehensive Metabolic Panel 04/18/20 Range/Units 04:06 Sodium 141 (135-145) mmol/L Potassium 3.7 (3.5-5.5) mmol/L Chloride 109 (96-109) mmol/L Carbon Dioxide 30.0 (21.6-31.8) mmol/L BUN 22.0 (9.0-27.0) mg/dL Creatinine 0.9 (0.6-1.5) mg/dL Glucose 99 (70-110) mg/dL Calcium 9.0 (8.7-10.3) mg/dL Current Medications Generic Name Dose Route Start Last Admin Trade Name Freq PRN Reason Stop Dose Admin Acetaminophen 650 mg 04/17/20 16:37 Acetaminophen Tab 325 Mg Tab PO Q6HR PRN Mild Pain or Fever > 100.5 Aspirin 81 mg 04/18/20 09:00 04/18/20 09:16 Aspirin 81 Mg PO 81 mg DAILY [facility] Administration Atorvastatin Calcium 40 mg 04/18/20 09:00 04/18/20 09:16 Atorvastatin 40 Mg Tab PO 40 mg DAILY [facility] Administration Citalopram Hydrobromide 20 mg 04/18/20 09:00 04/18/20 09:16 Citalopram Hydrobromide 20 Mg Tab PO 20 mg DAILY SAMUEL Administration Famotidine 20 mg 04/17/20 21:00 04/18/20 09:16 Famotidine 20 Mg Tab PO 20 mg BID SAMUEL Administration Heparin Sodium (Porcine) 0 unit 04/17/20 14:58 04/18/20 01:36 Heparin Sodium,Porcine 5,000 Unit/Ml 1 Ml Vial IV 4,000 unit PER PROTOCOL PRN Administration Low PTT Protocol Hydrochlorothiazide 12.5 mg 04/18/20 09:00 04/18/20 09:16 Hydrochlorothiazide 12.5 Mg Cap PO 12.5 mg DAILY SAMUEL Administration Sodium Chloride 1,000 mls @ 20 mls/hr 04/17/20 15:15 04/17/20 15:18 Saline 0.9% IV 20 mls/hr .Q24H [facility]EL Administration Sodium Chloride 1,000 mls @ 50 mls/hr 04/18/20 08:45 04/18/20 09:16 Saline 0.9% IV 50 mls/hr .Q20H [facility] Administration Losartan Potassium 100 mg 04/18/20 09:00 04/18/20 09:16 Losartan 50 Mg Tab PO 100 mg DAILY SAMUEL Administration Morphine Sulfate 4 mg 04/17/20 16:37 Morphine Sulfate 4 Mg/Ml Syringe IV Q4HR PRN Severe Pain Naloxone HCl 0.2 mg 04/17/20 16:37 Naloxone 0.4 Mg/Ml 1 Ml Vial IV Q2M PRN Opioid Reversal Nitroglycerin 0.4 mg 04/17/20 15:04 Nitroglycerin Sl Tabs 0.4 Mg Tab SUBLINGUAL Q5M PRN Chest Pain Ondansetron HCl 4 mg 04/17/20 16:37 Ondansetron 4 Mg/2 Ml Vial IVP Q8HR PRN Nausea And Vomiting Intake and Output 04/17/20 04/18/20 04/18/20 22:59 06:59 14:59 Intake Total 15.24 49.693 102 Balance 15.24 49.693 102 Intake: IV 102 Intake, IV Titration 15.24 49.693 Amount Heparin Sod,Pork in 0.45% 15.24 49.693 NaCl 25,000 unit In 0.45 % NaCl 1 250ml.bag @ 12 UNITS/KG/HR 9.525 mls/hr IV .Q24H [facility] Rx#: [id number] Other: Voiding Method Toilet # Voids 1 1 1 Weight 79.379 kg 79.379 kg Patient Weight 04/19/20 06:59 Weight 79.379 kg 04/18/20 04:06 04/18/20 04:06
--- NOTE | 2020-04-18 13:03 | P.DS ---
Providers Date of admission: 04/17/20 15:07 Expected date of discharge: 04/18/20 Attending physician: Tiffany Knight MD Consults: 04/17/20 15:05 Consult Physician Urgent Consulting Provider: Sarita Perdomo Consult Reason/Comments: unstable angina Do you want consulting provider notified?: Yes Primary care physician: Dontrell Butler MD Hospital Course: 1. Chest Pain 2. CAD 3. HTN 4. HLD 5. DM II 6. Anxiety 70 year old woman with HTN/HLD/DMII/CAD, anxiety presented with chest pain, admitted for ACS rule out. Her troponins remained negative and her EKG did not show any ischemic changes on her home medication regimen. Patient was placed on heparin gtt but this was discontinued. Patient's history was suspicious for arrhythmia so Cardiology/EP did consult on the patient, and recommended exterminator surveillance with loop recorder to capture events during periods of symptoms. Patient is agreeable to this plan. She had loop recorder placed today, and was subsequently discharged home with plan to follow up with PCP and Cardiology. Assessment: Gen: awake, alert HEENT: normocephalic, atraumatic, good hearing acuity, moist mucous membranes Resp: good air exchange, breathing comfortably with no accessory muscle use, clear to auscultation bilaterally without wheezes CVS: good distal perfusion x 4, bradycardic, regular rhythm, no murmurs GI: soft, NTTP, ND : no SPT, no CVAT, rawls catheter not present MSK: no pitting edema, no clubbing Neuro: non-focal, moving all extremities Psych: cooperative, euthymic mood Patient Condition at Discharge: Good Plan - Discharge Summary Discharge Rx Participant: No New Discharge Prescriptions: New Nitroglycerin Sl Tabs [Nitrostat] 0.4 mg SUBLINGUAL Q5M PRN #30 tab PRN Reason: Chest Pain Acetaminophen Tab [Tylenol] 650 mg PO Q6HR PRN tab PRN Reason: Mild Pain Or Fever > 100.5 Continue Citalopram Hydrobromide [CeleXA] 20 mg PO HS Atorvastatin Calcium [Lipitor] 40 mg PO HS hydroCHLOROthiazide [Hydrodiuril] 18.75 mg PO HS Losartan Potassium 100 mg PO HS Famotidine 20 mg PO HS Changed Aspirin 81 mg PO HS #0 Discharge Medication List Atorvastatin Calcium [Lipitor] 40 mg PO HS 10/28/18 [History] Citalopram Hydrobromide [CeleXA] 20 mg PO HS 12/29/17 [History] hydroCHLOROthiazide [Hydrodiuril] 18.75 mg PO HS 08/24/18 [History] Losartan Potassium 100 mg PO HS 08/25/18 [History] Famotidine 20 mg PO HS 04/17/20 [History] Acetaminophen Tab [Tylenol] 650 mg PO Q6HR PRN tab 04/18/20 [Rx] Aspirin 81 mg PO HS #0 04/18/20 [Rx] Nitroglycerin Sl Tabs [Nitrostat] 0.4 mg SUBLINGUAL Q5M PRN #30 tab 04/18/20 [Rx] Follow up Appointment(s)/Referral(s): Dontrell Butler MD [Primary Care Provider] - 1-2 days Discharge Disposition: HOME SELF-CARE
[2020-04-18 14:12] LABS: Hemoglobin A1C 5.5 % (4.0-6.0)
[2020-04-18 14:55] VITALS: BP 141/68; PULSE 54; RESP 17; TEMP 98.1
[2020-04-18] MEDS: SODIUM CHLORIDE 0.9% 1,000 ML IV SCH (17:10)
--- NOTE | 2020-04-19 15:00 | ECHOF ---
Referral Reason:to look for WMA MEASUREMENTS -------- HEIGHT: 154.9 cm WEIGHT: 79.4 kg BP: 142/78 IVSd: 1.6 cm (0.6 - 1.1) LVIDd: 4.0 cm (3.9 - 5.3) LVPWd: 1.7 cm (0.6 - 1.1) IVSs: 1.7 cm LVIDs: 2.6 cm LVPWs: 2.2 cm RVIDd: 2.8 cm (< 3.3) LAESV Index (A-L): 28.02 ml/m Ao Diam: 2.8 cm (2.0 - 3.7) LA Diam: 4.6 cm (2.7 - 3.8) AV Cusp: 1.8 cm (1.5 - 2.6) MV E Ramsey: 0.70 m/s MV DecT: 262 ms MV A Ramsey: 0.80 m/s MV E/A Ratio: 0.89 RAP: 5.00 mmHg RVSP: 23.28 mmHg FINDINGS -------- Sinus rhythm. This was a technically difficult study with suboptimal apical views. The left ventricular size is normal. There is moderate concentric left ventricular hypertrophy. O verall left ventricular systolic function is normal with, an EF between 55 - 60 %. The right ventricle is normal in size. Normal LA size by volume 22+/-6 ml/m2. The right atrium was not well visualized. Lumason used Interatrial and interventricular septum intact. The aortic valve was not well visualized. There is no evidence of aortic regurgitation. There is no evidence of aortic stenosis. Mild mitral regurgitation is present. Mild tricuspid regurgitation present. There is no evidence of pulmonary hypertension. The right v entricular systolic pressure, as measured by Doppler, is 23.28mmHg. There is no pulmonic regurgitation present. The aortic root size is normal. IVC Not well visulized. There is no pericardial effusion. CONCLUSIONS -------- 1. The left ventricular size is normal. 2. There is moderate concentric left ventricular hypertrophy. 3. Overall left ventricular systolic function is normal with, an EF between 55 - 60 %. 4. Mild mitral regurgitation is present. 5. Mild tricuspid regurgitation present. MANAGER [employer]UM[employer]: Ana Paula Zavala, [facility]
== END 2020-04-18 19:07 | disposition home or self-care (01) ==
LOC: EC 14:41 → 6NMEDSUR 15:07
PROVIDERS: ADMIT Internal Medicine; ATTEND Internal Medicine
DX: R07.89 Other chest pain (principal); R00.2 Palpitations; I10 Essential (primary) hypertension; I25.10 Atherosclerotic heart disease of native coronary artery without angina pectoris; E78.5 Hyperlipidemia, unspecified; K21.9 Gastro-esophageal reflux disease without esophagitis; I45.10 Unspecified right bundle-branch block; R00.1 Bradycardia, unspecified; E11.9 Type 2 diabetes mellitus without complications; F41.9 Anxiety disorder, unspecified; R11.2 Nausea with vomiting, unspecified; R42 Dizziness and giddiness; R61 Generalized hyperhidrosis; Z79.82 Long term (current) use of aspirin; Z79.899 Other long term (current) drug therapy; Z88.0 Allergy status to penicillin; Z91.02 Food additives allergy status; Z90.710 Acquired absence of both cervix and uterus; Z95.5 Presence of coronary angioplasty implant and graft; Z86.010 Personal history of colon polyps; Z82.49 Family history of ischemic heart disease and other diseases of the circulatory system; Z82.3 Family history of stroke
CPT/HCPCS: 96376; 96366 ×3; 96365; 99285; 93005 ×2; 80061; 80048; 84443; 83735; 84484; 85025; 85610 ×2; 85730 ×2; 83036; G0378 ×2; C8929; C1764; J2250; J1644 ×2; J2001; Q9950; 93306

== ENCOUNTER 2020-12-18 18:39 | Inpatient (IN) | payer MEDICARE, OTHER ==
[2020-12-18] MEDS ORDERED: NALOXONE 0.4 MG/ML 1 ML VIAL IV PRN (19:18)
--- NOTE | 2020-12-18 19:43 | ED ---
General Adult HPI - General Chief complaint: Shortness of Breath Stated complaint: Cardiac issues Time Seen by Provider: 12/18/20 18:46 Source: patient, EMS, RN notes reviewed, old records reviewed Mode of arrival: EMS Limitations: no limitations - History of Present Illness Initial comments: 70-year-old female history of atrial fibrillation and COPD presenting as transfer from outside hospital with atrial fibrillation with RVR. Patient was transferred for cardiology evaluation. She had been seen at outside emergency department and was planned to be admitted for COPD exacerbation with chief complaint of cough and dyspnea. After some time in the emergency department appears that she did develop atrial fibrillation with RVR which she has a hist ory of an is on metoprolol and eliquis. She was started on Cardizem infusion and was transferred. Her chief complaint had been increased cough and dyspnea. History of COPD. No reported fevers. - Related Data Home Medications Medication Instructions Recorded Confirmed Atorvastatin Calcium [Lipitor] 40 mg PO HS 12/29/17 04/17/20 Citalopram Hydrobromide [CeleXA] 20 mg PO HS 12/29/17 04/17/20 hydroCHLOROthiazide [Hydrodiuril] 18.75 mg PO HS 08/24/18 04/17/20 Losartan Potassium 100 mg PO HS 08/25/18 04/17/20 Famotidine 20 mg PO HS 04/17/20 04/17/20 Previous Rx's Medication Instructions Recorded Acetaminophen Tab [Tylenol] 650 mg PO Q6HR PRN tab 04/18/20 Aspirin 81 mg PO HS #0 04/18/20 Nitroglycerin Sl Tabs [Nitrostat] 0.4 mg SUBLINGUAL Q5M PRN #30 tab 04/18/20 Allergies Allergy/AdvReac Type Severity Reaction Status Date / Time Penicillins Allergy Unknown Verified 04/17/20 15:40 lactose AdvReac Mild Nausea & Verified 04/17/20 15:40 Vomiting & Diarrhea Review of Systems ROS Statement: Those systems with pertinent positive or pertinent negative responses have been documented in the HPI. ROS Other: All systems not noted in ROS Statement are negative. Past Medical History Past Medical History: Atrial Fibrillation, COPD, GERD/Reflux, Hyperlipidemia, Hypertension, Myocardial Infarction ([place]) Additional Past Medical History / Comment(s): Chest pain, stress test-last in 2014 Last Myocardial Infarction Date:: 2017 History of Any Multi-Drug Resistant Organisms: None Reported Past Surgical History: Heart Catheterization With Stent, Hysterectomy Additional Past Surgical History / Comment(s): Colonoscopy/polypectomy,last stent 2019 Past Anesthesia/Blood Transfusion Reactions: No Reported Reaction Date of Last Stent Placement:: 2017 Past Psychological History: No Psychological Hx Reported Smoking Status: Current some day smoker Past Alcohol Use History: None Reported Past Drug Use History: None Reported - Past Family History Mother Family Medical History: CVA/TIA, Hypertension Additional Family Medical History / Comment(s): "Circulation problems" Brother(s) Family Medical History: Hypertension Father Additional Family Medical History / Comment(s): Pt's father young and she states she does not know his medical history. General Exam Limitations: no limitations General appearance: alert, in no apparent distress Head exam: Present: atraumatic, normocephalic Eye exam: Present: normal appearance, PERRL ENT exam: Present: normal exam Neck exam: Present: normal inspection. Absent: tenderness, meningismus Respiratory exam: Present: respiratory distress, wheezes, decreased breath sounds Cardiovascular Exam: Present: regular rate, normal rhythm GI/Abdominal exam: Present: soft. Absent: distended, tenderness, guarding Extremities exam: Present: normal capillary refill. Absent: pedal edema Neurological exam: Present: alert, oriented X3 Psychiatric exam: Present: normal affect, normal mood Course Vital Signs 12/18/20 19:15 Temperature 97.9 F Pulse Rate 59 L Respiratory 18 Rate Blood Pressure 125/70 O2 Sat by Pulse 89 L Oximetry EKG Findings - EKG Comments: EKG Findings:: EKG: Normal sinus rhythm, incomplete right bundle-branch block, rate 64, DE interval 128, QRS duration 94, QTC 474. Medical Decision Making - Medical Decision Making 70-year-old female transferred from outside hospital with COPD exacerbation in nature fibrillation with RVR. She is in sinus rhythm upon arrival was stable blood pressure. She has mild dyspnea. She will be admitted for monitoring. Treatment of COPD exacerbation and telemetry. Both pulmonology and cardiology are placed on consult. Case is discussed with Dr. Parsons who will admit. Disposition Clinical Impression: Atrial fibrillation with RVR, COPD with exacerbation Disposition: ADMITTED IP TO THIS HOSP Condition: Stable Is patient prescribed a controlled substance at d/c from ED?: No Referrals: Dontrell Butler MD [Primary Care Provider] - 1-2 days Decision to Admit Reason: Admit from EC Decision Date: 12/18/20 Decision Time: 19:43
[2020-12-19] MEDS: amLODIPine 5 MG TAB PO SCH ×2 (00:08→10:13)
[2020-12-19] MEDS: APIXABAN 5 MG TAB PO SCH ×3 (00:08→20:42)
[2020-12-19] MEDS: ATORVASTATIN 40 MG TAB PO SCH ×2 (00:08→20:41)
[2020-12-19] MEDS: ASPIRIN 81 MG PO SCH ×2 (00:08→08:45)
[2020-12-19] MEDS: CITALOPRAM HYDROBROMIDE 10 MG TAB PO SCH ×2 (00:09→10:13)
[2020-12-19] MEDS: LOSARTAN 50 MG TAB PO SCH ×3 (00:09→20:42)
[2020-12-19] MEDS: METOPROLOL TARTRATE 25 MG TAB PO SCH ×3 (00:09→20:42)
[2020-12-19] MEDS: FAMOTIDINE 20 MG TAB PO SCH ×2 (00:09→20:41)
[2020-12-19] MEDS: CHOLECALCIFEROL 10 MCG (400 IU) TABLET PO SCH ×2 (00:19→08:45)
[2020-12-19] MEDS: SODIUM CHLORIDE 0.9% 1,000 ML IV SCH ×3 (06:45→20:45)
[2020-12-19 06:50] LABS: Basophils % (A) 0 %; Eosinophils % (A) 0 %; HCT 42.5 % (34.0-46.0); HGB 14.1 gm/dL (11.4-16.0); Lymphocytes % (A) 10 %; MCH 30.9 pg (25.0-35.0); MCHC 33.1 g/dL (31.0-37.0); MCV 93.3 fL (80.0-100.0); Mean Platelet Volume 9.4; Monocytes # (A) 0.6 k/uL (0-1.0); Monocytes % (A) 6 %; Neutrophils # (A) 8.3 k/uL (1.3-7.7); Neutrophils % (A) 83 %; Platelet Count 133 k/uL (150-450); RBC 4.56 m/uL (3.80-5.40); RDW 12.6 % (11.5-15.5)
[2020-12-19 07:15] LABS: ALT 17 U/L (4-34); AST 22 U/L (14-36); African American GFR (CKD) >90 (>60 ml/min/1.73 sqM); Albumin 3.5 g/dL (3.5-5.0); Alkaline Phosphatase 83 U/L (38-126); Anion Gap 7 mmol/L; Blood Urea Nitrogen 30 mg/dL (7-17); Carbon Dioxide 24 mmol/L (22-30); Chloride 108 mmol/L (98-107); Glucose 110 mg/dL (74-99); Non-African American GFR(CKD) 80 (>60 ml/min/1.73 sqM); Potassium 4.4 mmol/L (3.5-5.1); Sodium 139 mmol/L (137-145); Total Bilirubin 0.3 mg/dL (0.2-1.3); Total Protein 6.5 g/dL (6.3-8.2)
--- NOTE | 2020-12-19 08:02 | XR ---
EXAMINATION TYPE: XR chest 1V portable DATE OF EXAM: 12/19/2020 COMPARISON: 08/24/2018 HISTORY: Dyspnea TECHNIQUE: Single frontal view of the chest is obtained. FINDINGS: There is no focal air space opacity, pleural effusion, or pneumothorax seen. The cardiac silhouette size is unchanged. IMPRESSION: No acute process.
[2020-12-19] MEDS: NICOTINE 21MG/24HR PATCH TRANSDERM SCH ×2 (08:44→13:31)
[2020-12-19] MEDS ORDERED: predniSONE 50 MG TAB PO SCH (09:00)
--- NOTE | 2020-12-19 09:57 | P.HPIM ---
History of Present Illness This is a pleasant 70 years old female with past medical history of atrial fibrillation on Eliquis, COPD, GERD, hypertension, hyperlipidemia, coronary artery disease status post stent Patient presents because of dyspnea and left-sided chest pain and coughing for 3 days. Patient was at [facility] where they found her to 5 A. fib with RVR in COPD exacerbation. Patient converted to sinus rhythm after started on Cardi zem drip. She still mildly dyspneic but no chest pain when she was transferred Patient currently is very short of breath and she cannot finish sentences later dyspnea. She has coughing with clear phlegm. Chest pain with coughing only. She also loses stool She is not on home oxygen on steroids. 5 months ago and she feels bereavement Vitas looks stable and patient saturates 95% on 3 L oxygen via nasal cannula, afebrile. Labs including CBC, BMP and liver enzymes are unremarkable. chest x-ray: No acute process. EKG showing normal sinus rhythm at [address]-T changes cardiology and pulmonary team consulted from 80 Review of Systems CONSTITUTIONAL: No fever, no malaise, no fatigue. HEENT: No recent visual problems or hearing problems. Denied any sore throat. CARDIOVASCULAR: No orthopnea, PND, no palpitations, no syncope. PULMONARY: No chest wall tenderness, no hemoptysis. GASTROINTESTINAL: No diarrhea, no nausea, no vomiting, no abdominal pain. Normoactive bowel sounds. NEUROLOGICAL: No headaches, no weakness, no numbness. HEMATOLOGICAL: Denies any bleeding or petechiae. GENITOURINARY: Denies any burning micturition, frequency, or urgency. MUSCULOSKELETAL/RHEUMATOLOGICAL: Denies any joint pain, swelling, or any muscle pain. ENDOCRINE: Denies any polyuria or polydipsia. Past Medical History Past Medical History: Atrial Fibrillation, COPD, GERD/Reflux, Hyperlipidemia, Hy pertension, Myocardial Infarction ([place]) Additional Past Medical History / Comment(s): Chest pain, stress test-last in 2014 Last Myocardial Infarction Date:: 2017 History of Any Multi-Drug Resistant Organisms: None Reported Past Surgical History: Heart Catheterization With Stent, Hysterectomy Additional Past Surgical History / Comment(s): Colonoscopy/polypectomy,last stent 2019 Past Anesthesia/Blood Transfusion Reactions: No Reported Reaction Date of Last Stent Placement:: 2017 Past Psychological History: No Psychological Hx Reported Smoking Status: Current some day smoker Past Alcohol Use History: None Reported Past Drug Use History: None Reported - Past Family History Mother Family Medical History: CVA/TIA, Hypertension Additional Family Medical History / Comment(s): "Circulation problems" Brother(s) Family Medical History: Hypertension Father Additional Family Medical History / Comment(s): Pt's father young and she states she does not know his medical history. Medications and Allergies Home Medications Medication Instructions Recorded Confirmed Type Atorvastatin Calcium [Lipitor] 40 mg PO HS 12/29/17 12/18/20 History Citalopram Hydrobromide [CeleXA] 30 mg PO HS 12/29/17 12/18/20 History hydroCHLOROthiazide [Hydrodiuril] 12.5 mg PO Q48H 08/24/18 12/18/20 History Losartan Potassium 50 mg PO HS 08/25/18 12/18/20 History Famotidine 40 mg PO HS 04/17/20 12/18/20 History Aspirin 81 mg PO HS #0 04/18/20 12/18/20 Rx Apixaban [Eliquis] 5 mg PO BID 12/18/20 12/18/20 History Cholecalciferol [Vitamin D3 (25 25 mcg PO HS 12/18/20 12/18/20 History Mcg = 1000 Iu)] Metoprolol Tartrate [Lopressor] 25 mg PO BID 12/18/20 12/18/20 History amLODIPine BESYLATE 5 mg PO HS 12/18/20 12/18/20 History Allergies Allergy/AdvReac Type Severity Reaction Status Date / Time Penicillins Allergy Unknown Verified 12/18/20 20:12 lactose AdvReac Mild Nausea & Verified 12/18/20 20:12 Vomiting & Diarrhea Physical Exam Vitals: Vital Signs Temp Pulse Resp BP Pulse Ox 12/19/20 06:22 62 18 135/70 95 12/19/20 04:45 64 15 144/65 96 12/19/20 01:53 56 L 18 144/65 96 12/19/20 00:11 70 18 143/70 93 L 12/18/20 19:30 95 12/18/20 19:15 97.9 F 59 L 18 125/70 89 L Intake and Output 12/18/20 12/19/20 12/19/20 22:59 06:59 14:59 Other: Weight 77.111 kg GENERAL: The patient is alert and oriented x3, not in any acute distress. Well developed, well nourished. HEENT: Pupils are round and equally reacting to light. EOMI. No scleral icterus. No conjunctival pallor. Normocephalic, atraumatic. No pharyngeal erythema. No thyromegaly. CARDIOVASCULAR: S1 and S2 present. No murmurs, rubs, or gallops. -PULMONARY: Chest is clear to auscultation, bilateral expiratory wheezing . No crackles. ABDOMEN: Soft, nontender, nondistended, normoactive bowel sounds. No palpable organomegaly. MUSCULOSKELETAL: No joint swelling or deformity. EXTREMITIES: No cyanosis, clubbing, or pedal edema. NEUROLOGICAL: Gross neurological examination did not reveal any focal deficits. SKIN: No rashes. No petechiae Results CBC & Chem 7: 12/19/20 06:34 12/19/20 06:34 Labs: Abnormal Lab Results - Last 24 Hours (Table) 12/19/20 12/19/20 Range/Units 06:34 06:34 Plt Count 133 L (150-450) k/uL Neutrophils # 8.3 H (1.3-7.7) k/uL Chloride 108 H (98-107) mmol/L BUN 30 H (7-17) mg/dL Glucose 110 H (74-99) mg/dL Assessment and Plan Assessment: Paroxysmal atrial fibrillation, on Eliquis. With RVR on admission COPD with exacerbation Acute hypoxemic respiratory failure Hyperlipidemia History of GERD History of coronary artery disease status post stent Depression with no suicidal ideation. Bereavement Plan: this is a pleasant 70 years old female who presents with A. fib and RVR COPD. Continue with steroids, currently on prednisone 50 mg daily, change it to Solu- Medrol 60 mg Continue gentle hydration cardiology and pulmonary consult Labs and medication were reviewed.. Continue same treatment. Continue with symptomatic treatment. Resume home medication. Monitor lytes and vitals. DVT and GI prophylaxis. Further recommendations depends on the clinical course of the patient DVT prophylaxi: Eliquis GI Prophylaxis: Pepcid PT/OT: Pending Prognosis is guarded
[2020-12-19] MEDS: DILTIAZEM CD 120 MG CAP.ER.24H PO SCH (10:13)
[2020-12-19] MEDS ORDERED: LORazepam 2 MG/ML INJ IV STA (10:20)
[2020-12-19] MEDS ORDERED: ONDANSETRON 4 MG/2 ML VIAL IVP PRN (10:21)
[2020-12-19] MEDS: IPRATROPIUM-ALBUTEROL 3 ML NEB INHALATION PRN ×3 (10:25→19:56)
--- NOTE | 2020-12-19 11:10 | P.CRDCN ---
History of Present Illness History of present illness: This is a pleasant 70-year-old female past medical history significant for paroxysmal atrial fibrillation (on Eliquis), coronary artery disease status post PCI to the ostial OM 2017, hypertension and dyslipidemia, loop recorder placed in Apr 2020. She follows in the office with Dr. Perdomo. We have been asked to see in consultation for atrial fibrillation with RVR. Patient was transferred from [facility] for atrial fibrillation with RVR. Patient states she was given a albuterol respiratory treatment and her heart began to race. EKG revealed atrial fibrillation with RVR. She was transferred to [facility] for cardiology evaluation. Patient initially presented to [facility] with complaints of shortness of breath and cough since , she states it is progressively getting worse. She had associated chills on Saturday. She denies fevers, orthopnea of PND. She states she can barely do her normal daily activities or walk around her room/to the bathroom without being short of breath. She has some atypical chest pain around her ribs when she coughs, this is non-radiating, non-exertional, no associated symptoms. She is a current every day smoker 1PPD, last smoked on Saturday. At [facility], Chest xray report revealed patchy bibasilar right greater than left opacities, increased compared to prior study likely subsegm ental atelectasis though developing infiltrate cannot be excluded. Hyperinflation of the lungs. Chronic lung disease COPD/emphysema. Labs reveal troponin negative 1, proBNP 151, WBC 6.4, hemoglobin 14.6, platelets 128, sodium 138, potassium 3.8, BUN 20, serum creatinine 0.9, magnesium 1.6. DIAGNOSTICS EKG on admission, sinus rhythm, heart rate 64, incomplete bundle branch block, T wave inversion in lead V2 and III, Prior EKG with similar findings Telemetry tracings at bedside revealed maintaining sinus mechanism. Laboratory data reviewed, WBC 10, hemoglobin 14, platelets 133, sodium 139, potassium 4.4, BUN 30, serum creatinine 0.7, troponin negative 1, proBNP 742, COVID-19 PCR negative Current daily cardiac medications include Eliquis 5 mg twice a day, amlodipine 5 mg daily, atorvastatin 40 mg nightly, hydrochlorothiazide 12.5 mg every 48 hours, losartan 50 mg nightly, metoprolol tartrate 25 mg twice a day, aspirin 81 mg daily She underwent a Lexiscan stress test August 2020 revealing probably normal myocardial perfusion imaging with a fixed anteroapical wall defect Most recent echocardiogram obtained in April 2020 EF of 5560 percent, moderate concentric left ventricular hypertrophy, mild tricuspid regurgitation, mild mitral regurgitation REVIEW OF SYSTEMS At the time of my exam: CONSTITUTIONAL: Positive chills Denies fever CARDIOVASCULAR: Positive shortness of breath, positive chest pain, Denies orthopnea, PND or palpitations. RESPIRATORY: +cough. GASTROINTESTINAL: Denies abdominal pain, diarrhea, constipation, nausea or vomiting. MUSCULOSKELETAL: Denies myalgias. NEUROLOGIC: Denies numbness, tingling, headacbe or weakness. ENDOCRINE: Denies fatigue, weight change, polydipsia or polyurina. GENITOURINARY: Denies burning, hematuria or urgency with micturation. HEMATOLOGIC: Denies history of anemia or bleeding. PHYSICAL EXAMINATION Blood pressure 171/80, heart rate 69, afebrile, maintaining saturations on 3 L nasal cannula CONSTITUTIONAL: Short of breath. No apparent distress. HEENT: Head is normocephalic. Pupils are equal, round. Sclerae anicteric. Mucous membranes of the mouth are moist. No JVD. No carotid bruit. CHEST EXAMINATION: Lungs are expiratory wheezing throughout to auscultation. Chest wall tenderness with cough and deep breathin HEART EXAMINATION: Regular rate and rhythm. S1, S2 heard. No murmurs, gallops or rub. ABDOMEN: Soft, nontender. Positive bowel sounds. EXTREMITIES: 2+ peripheral pulses, no lower extremity edema and no calf tenderness. NEUROLOGIC EXAMINATION: Patient is awake, alert and oriented x3. ASSESSMENT Atrial fibrillation with RVR- on Eliquis. Currently maintaining sinus mechanism. Chest pain, atypical, worse with coughing, acute coronary syndrome ruled out COPD exacerbation Coronary artery disease status post PCI 2017 Hypertension Dyslipidemia PLAN -We will discontinue patient's metoprolol and start Cardizem 120mg daily -Continue Eliquis 5 mg twice a day, amlodipine, atorvastatin, losartan -Pulmonary has been consulted -Patient requesting to be discharged, patient is stable from a cardiology p erspective, no further adjustments or cardiac testing at this time. -Patient to follow up with Dr. Perdomo as an outpatient. Nurse Practitioner note has been reviewed, I agree with a documented findings and plan of care. Patient was seen and examined. Past Medical History Past Medical History: Atrial Fibrillation, COPD, GERD/Reflux, Hyperlipidemia, Hypertension, Myocardial Infarction ([place]) Additional Past Medical History / Comment(s): Chest pain, stress test-last in 2014 Last Myocardial Infarction Date:: 2017 History of Any Multi-Drug Resistant Organisms: None Reported Past Surgical History: Heart Catheterization With Stent, Hysterectomy Additional Past Surgical History / Comment(s): Colonoscopy/polypectomy,last stent 2019 Past Anesthesia/Blood Transfusion Reactions: No Reported Reaction Date of Last Stent Placement:: 2017 Past Psychological History: No Psychological Hx Reported Smoking Status: Current some day smoker Past Alcohol Use History: None Reported Past Drug Use History: None Reported - Past Family History Mother Family Medical History: CVA/TIA, Hypertension Additional Family Medical History / Comment(s): "Circulation problems" Brother(s) Family Medical History: Hypertension Father Additional Family Medical History / Comment(s): Pt's father young and she states she does not know his medical history. Medications and Allergies Home Medications Medication Instructions Recorded Confirmed Type Atorvastatin Calcium [Lipitor] 40 mg PO HS 12/29/17 12/18/20 History Citalopram Hydrobromide [CeleXA] 30 mg PO HS 12/29/17 12/18/20 History hydroCHLOROthiazide [Hydrodiuril] 12.5 mg PO Q48H 08/24/18 12/18/20 History Losartan Potassium 50 mg PO HS 08/25/18 12/18/20 History Famotidine 40 mg PO HS 04/17/20 12/18/20 History Aspirin 81 mg PO HS #0 04/18/20 12/18/20 Rx Apixaban [Eliquis] 5 mg PO BID 12/18/20 12/18/20 History Cholecalciferol [Vitamin D3 (25 25 mcg PO HS 12/18/20 12/18/20 History Mcg = 1000 Iu)] Metoprolol Tartrate [Lopressor] 25 mg PO BID 12/18/20 12/18/20 History amLODIPine BESYLATE 5 mg PO HS 12/18/20 12/18/20 History Allergies Allergy/AdvReac Type Severity Reaction Status Date / Time Penicillins Allergy Unknown Verified 12/18/20 20:12 lactose AdvReac Mild Nausea & Verified 12/18/20 20:12 Vomiting & Diarrhea Physical Exam Vitals: Vital Signs Temp Pulse Resp BP Pulse Ox 12/19/20 06:22 62 18 135/70 95 12/19/20 04:45 64 15 144/65 96 12/19/20 01:53 56 L 18 144/65 96 12/19/20 00:11 70 18 143/70 93 L 12/18/20 19:30 95 12/18/20 19:15 97.9 F 59 L 18 125/70 89 L Intake and Output 12/18/20 12/19/20 12/19/20 22:59 06:59 14:59 Other: Weight 77.111 kg Results 12/19/20 06:34 12/19/20 06:34 Cardiac Enzymes 12/19/20 Range/Units 06:34 AST 22 (14-36) U/L CBC 12/19/20 Range/Units 06:34 WBC 10.0 (3.8-10.6) k/uL RBC 4.56 (3.80-5.40) m/uL Hgb 14.1 (11.4-16.0) gm/dL Hct 42.5 (34.0-46.0) % Plt Count 133 L (150-450) k/uL Comprehensive Metabolic Panel 12/19/20 Range/Units 06:34 Sodium 139 (137-145) mmol/L Potassium 4.4 (3.5-5.1) mmol/L Chloride 108 H (98-107) mmol/L Carbon Dioxide 24 (22-30) mmol/L BUN 30 H (7-17) mg/dL Creatinine 0.76 (0.52-1.04) mg/dL Glucose 110 H (74-99) mg/dL Calcium 9.0 (8.4-10.2) mg/dL AST 22 (14-36) U/L ALT 17 (4-34) U/L Alkaline Phosphatase 83 (38-126) U/L Total Protein 6.5 (6.3-8.2) g/dL Albumin 3.5 (3.5-5.0) g/dL Current Medications Generic Name Dose Route Start Last Admin Trade Name Freq PRN Reason Stop Dose Admin Albuterol/Ipratropium 3 ml 12/18/20 19:39 Ipratropium-Albuterol 3 Ml Neb INHALATION RT-QID PRN Shortness Of Breath Or Wheezing Amlodipine Besylate 5 mg 12/18/20 23:45 12/19/20 00:08 Amlodipine 5 Mg Tab PO 5 mg DAILY SAMUEL Administration Apixaban 5 mg 12/18/20 23:45 12/19/20 00:08 Apixaban 5 Mg Tab PO 5 mg BID SAMUEL Administration Protocol Aspirin 81 mg 12/18/20 23:45 12/19/20 00:08 Aspirin 81 Mg PO 81 mg DAILY SAMUEL Administration Atorvastatin Calcium 40 mg 12/18/20 23:45 12/19/20 00:08 Atorvastatin 40 Mg Tab PO 40 mg HS SAMUEL Administration Cholecalciferol 10 mcg 12/18/20 23:45 12/19/20 00:19 Cholecalciferol 10 Mcg (400 Iu) Tablet PO Not Given DAILY SAMUEL Citalopram Hydrobromide 30 mg 12/18/20 23:45 12/19/20 00:09 Citalopram Hydrobromide 10 Mg Tab PO 30 mg DAILY SAMUEL Administration Famotidine 40 mg 12/18/20 23:45 12/19/20 00:09 Famotidine 20 Mg Tab PO 40 mg HS SAMUEL Administration Sodium Chloride 1,000 mls @ 75 mls/hr 12/18/20 19:45 12/19/20 06:45 Saline 0.9% IV 75 mls/hr .[id number] SAMUEL Administration Losartan Potassium 50 mg 12/18/20 23:45 12/19/20 00:09 Losartan 50 Mg Tab PO 50 mg DAILY SAMUEL Administration Metoprolol Tartrate 25 mg 12/18/20 23:45 12/19/20 00:09 Metoprolol Tartrate 25 Mg Tab PO 25 mg BID SAMUEL Administration Naloxone HCl 0.2 mg 12/18/20 19:18 Naloxone 0.4 Mg/Ml 1 Ml Vial IV Q2M PRN Opioid Reversal Nicotine 1 patch 12/19/20 09:00 Nicotine 21mg/24hr Patch TRANSDERM DAILY SAMUEL Prednisone 50 mg 12/19/20 09:00 Prednisone 50 Mg Tab PO DAILY SAMUEL Intake and Output 12/18/20 12/19/20 12/19/20 22:59 06:59 14:59 Other: Weight 77.111 kg 12/19/20 06:34 12/19/20 06:34
[2020-12-19] MEDS: hydroCHLOROthiazide 12.5 MG CAP PO SCH (12:15)
[2020-12-19] MEDS: methylPREDNISolone SOD SUCCI 125 MG/2 ML VIAL IV SCH ×3 (12:15→23:27)
--- NOTE | 2020-12-19 14:02 | P.CNPUL ---
History of Present Illness Consult date: 12/19/20 Reason for consult: dyspnea, COPD History of present illness: 70-year-old female patient hospitalized today because of shortness of breath. The patient was seen in the emergency department with symptoms of cough and dyspnea. She was also found to have an acute exacerbation of her chronic atrial fibrillation and the patient had a rapid ventricular response. The patient was demented on a combination of metoprolol and Eliquis on outpatient basis. She was started on a Cardizem infusion. Following consultation and a cardiology consultation was requested. Note that the patient was at [facility] with atrial fibrillation and RVR which is essentially the same issue. The patient converted to normal sinus rhythm. The patient remained dyspneic and based on that she was transferred to our hospital. In terms of workup, the patient was kept on these about 2 by nasal cannula with a pulse of 95%. CBC and complete metabolic profile was unremarkable. EKG showed a normal sinus rhythm. Chest x-ray showed no acute cardio pulmonary process. The patient a white cell count of 10 with a hemoglobin of 14.1. Mean was 30 with a creatinine of 0.7. Glucose 110. Troponin was 0.0 26 and the proBNP level was 742. COVID-19 testing was also negative. The patient for now is currently on DuoNeb nebulized treatments around the clock, IV Solu-Medrol, Symbicort as maintenance. The patient was also started on a nicotine patch regarding her history of smoking. Cardizem drip was discontinued and the patient is currently on oral Cardizem 120 mg CD one tablet a day. Rest of the home medications have been resumed including her long-term and coagulation with Eliquis. The patient has seen Dr. Perdomo regarding was her chronic atrial fibrillation. The patient has a loop recorder in place. Her current other cardiac rhythm is sinus. The patient does not use home oxygen. She does not use any form of maintenance of her medications or inhalers. No cerebellar childhood asthma. She is a chronic smoker and she smokes 1 pack of cigarettes a day. Her primary care physician is out of [place]. She sees cardiology local ly, Dr. Perdomo. Review of Systems CONSTITUTIONAL: No fever, no malaise, no fatigue. HEENT: No recent visual problems or hearing problems. Denied any sore throat. CARDIOVASCULAR: No orthopnea, PND, no palpitations, no syncope. PULMONARY: No chest wall tenderness, no hemoptysis. Increased chest tightness wheezing and shortness of breath typical of an underlying COPD exacerbation. GASTROINTESTINAL: No diarrhea, no nausea, no vomiting, no abdominal pain. Normoactive bowel sounds. NEUROLOGICAL: No headaches, no weakness, no numbness. HEMATOLOGICAL: Denies any bleeding or petechiae. GENITOURINARY: Denies any burning micturition, frequency, or urgency. MUSCULOSKELETAL/RHEUMATOLOGICAL: Denies any joint pain, swelling, or any muscle pain. ENDOCRINE: Denies any polyuria or polydipsia. Past Medical History Past Medical History: Atrial Fibrillation, COPD, GERD/Reflux, Hyperlipidemia, Hypertension, Myocardial Infarction ([place]) Additional Past Medical History / Comment(s): History of kidney stones, history of chronic atrial fibrillation Last Myocardial Infarction Date:: 2017 History of Any Multi-Drug Resistant Organisms: None Reported Past Surgical History: Heart Catheterization With Stent, Hysterectomy Additional Past Surgical History / Comment(s): Colonoscopy/polypectomy,last stent 2019 Past Anesthesia/Blood Transfusion Reactions: No Reported Reaction Date of Last Stent Placement:: 2017 Past Psychological History: No Psychological Hx Reported Smoking Status: Current some day smoker Past Alcohol Use History: None Reported Past Drug Use History: None Reported - Past Family History Mother Family Medical History: CVA/TIA, Hypertension Additional Family Medical History / Comment(s): "Circulation problems" Brother(s) Family Medical History: Hypertension Father Additional Family Medical History / Comment(s): Pt's father young and she states she does not know his medical history. Medications and Allergies Home Medications Medication Instructions Recorded Confirmed Type Atorvastatin Calcium [Lipitor] 40 mg PO HS 12/29/17 12/18/20 History Citalopram Hydrobromide [CeleXA] 30 mg PO HS 12/29/17 12/18/20 History hydroCHLOROthiazide [Hydrodiuril] 12.5 mg PO Q48H 08/24/18 12/18/20 History Losartan Potassium 50 mg PO HS 08/25/18 12/18/20 History Famotidine 40 mg PO HS 04/17/20 12/18/20 History Aspirin 81 mg PO HS #0 04/18/20 12/18/20 Rx Apixaban [Eliquis] 5 mg PO BID 12/18/20 12/18/20 History Cholecalciferol [Vitamin D3 (25 25 mcg PO HS 12/18/20 12/18/20 History Mcg = 1000 Iu)] amLODIPine BESYLATE 5 mg PO HS 12/18/20 12/18/20 History Diltiazem Cd [Cardizem CD] 120 mg PO DAILY 30 Days #30 cap 12/19/20 Rx Allergies Allergy/AdvReac Type Severity Reaction Status Date / Time Penicillins Allergy Unknown Verified 12/18/20 20:12 lactose AdvReac Mild Nausea & Verified 12/18/20 20:12 Vomiting & Diarrhea Physical Exam Vitals: Vital Signs Temp Pulse Resp BP Pulse Ox 12/19/20 12:24 63 18 158/86 97 12/19/20 10:34 53 L 12/19/20 10:28 56 L 12/19/20 10:00 63 20 95 12/19/20 09:00 65 20 95 12/19/20 08:36 69 20 171/80 95 12/19/20 06:22 62 18 135/70 95 12/19/20 04:45 64 15 144/65 96 12/19/20 01:53 56 L 18 144/65 96 12/19/20 00:11 70 18 143/70 93 L 12/18/20 19:30 95 12/18/20 19:15 97.9 F 59 L 18 125/70 89 L Intake and Output 12/18/20 12/19/20 12/19/20 22:59 06:59 14:59 Other: Weight 77.111 kg CONSTITUTIONAL: Short of breath. No apparent distress. Head exam was generally normal. There was no scleral icterus or corneal arcus. Mucous membranes were moist. HEENT: Head is normocephalic. Pupils are equal, round. Sclerae anicteric. Mucous membranes of the mouth are moist. No JVD. No carotid bruit. CHEST EXAMINATION: Lungs are expiratory wheezing throughout to auscultation. Chest wall tenderness with cough and deep breathing HEART EXAMINATION: Regular rate and rhythm. S1, S2 heard. No murmurs, gallops or rub. ABDOMEN: Soft, nontender. Positive bowel sounds. EXTREMITIES: 2+ peripheral pulses, no lower extremity edema and no calf tenderness. Examination of the skin revealed no evidence of significant rashes, suspicious appearing nevi or other concerning lesions. NEUROLOGIC EXAMINATION: Patient is awake, alert and oriented x3. Results - Laboratory Findings CBC and BMP: 12/19/20 06:34 12/19/20 06:34 Abnormal lab findings: Abnormal Labs 12/19/20 12/19/20 06:34 06:34 Plt Count 133 L Neutrophils # 8.3 H Chloride 108 H BUN 30 H Glucose 110 H - Diagnostic Findings Chest x-ray: image reviewed Assessment and Plan Plan: 1 acute COPD exacerbation with secondary shortness of breath t 2 acute hypoxic respiratory failure secondary to above currently on 4 L to maintain saturation above 90% 3 paroxysmal atrial fibrillation with rapid ventricular response at the time of admission, currently on oral Cardizem and Eliquis for anticoagulation. Cardizem drip was discontinued 4 acute hypoxic respiratory failure secondary to above 5 coronary artery disease with previous in intervention and coronary stent and PCI in 2018 6 hyperlipidemia 7 hypertension 8 history of depression Plan Wean down the FiO2 to maintain a saturation above 90% Agree on the current treatment Continue bronchodilators and steroids Outpatient pulmonary function test to assess the severity of her COPD Oral Cardizem Anticoagulation with Eliquis Nicotine patch We'll continue to follow
[2020-12-19 19:45] LABS: Glucose,Whole Blood 200 mg/dL (75-99)
[2020-12-19] MEDS: SYMBICORT 160-4.5 MCG INHALER INHALATION SCH (19:56)
[2020-12-19] MEDS: INSULIN ASPART (NovoLOG) 100 UNIT/ML VIAL SQ SCH (20:42)
[2020-12-20 02:20] LABS: Glucose,Whole Blood 132 mg/dL (75-99)
[2020-12-20 06:09] LABS: Glucose,Whole Blood 146 mg/dL (75-99)
[2020-12-20] MEDS: methylPREDNISolone SOD SUCCI 125 MG/2 ML VIAL IV SCH ×4 (06:19→23:42)
[2020-12-20] MEDS: SODIUM CHLORIDE 0.9% 1,000 ML IV SCH ×2 (06:19→20:45)
[2020-12-20] MEDS: INSULIN ASPART (NovoLOG) 100 UNIT/ML VIAL SQ SCH ×4 (06:19→20:45)
[2020-12-20] MEDS: SYMBICORT 160-4.5 MCG INHALER INHALATION SCH ×2 (08:35→21:06)
[2020-12-20] MEDS: IPRATROPIUM-ALBUTEROL 3 ML NEB INHALATION PRN ×4 (08:35→21:07)
[2020-12-20] MEDS: METOPROLOL TARTRATE 25 MG TAB PO SCH (10:36)
[2020-12-20] MEDS: ASPIRIN 81 MG PO SCH (10:44)
[2020-12-20] MEDS: amLODIPine 5 MG TAB PO SCH (10:44)
[2020-12-20] MEDS: APIXABAN 5 MG TAB PO SCH ×2 (10:44→20:44)
[2020-12-20] MEDS: CHOLECALCIFEROL 10 MCG (400 IU) TABLET PO SCH (10:45)
[2020-12-20] MEDS: DILTIAZEM CD 120 MG CAP.ER.24H PO SCH (10:45)
[2020-12-20 11:45] LABS: Glucose,Whole Blood 145 mg/dL (75-99)
--- NOTE | 2020-12-20 12:01 | P.PN ---
Subjective Progress Note Date: 12/20/20 70-year-old female patient hospitalized today because of shortness of breath. The patient was seen in the emergency department with symptoms of cough and dyspnea. She was also found to have an acute exacerbation of her chronic atrial fibrillation and the patient had a rapid ventricular response. The patient was demented on a combination of metoprolol and Eliquis on outpatient basis. She was started on a Cardizem infusion. Following consultation and a cardiology consultation was requested. Note that the patient was at [facility] with atrial fibrillation and RVR which is essentially the same issue. The patient converted to normal sinus rhythm. The patient remained dyspneic and based on that she was transferred to our hospital. In terms of workup, the patient was kept on these about 2 by nasal cannula with a pulse of 95%. CBC and complete metabolic profile was unremarkable. EKG showed a normal sinus rhythm. Chest x-ray showed no acute cardio pulmonary process. The patient a white cell count of 10 with a hemoglobin of 14.1. Mean was 30 with a creatinine of 0.7. Glucose 110. Troponin was 0.0 26 and the proBNP level was 742. COVID-19 testing was also negative. The patient for now is currently on DuoNeb nebulized treatments around the clock, IV Solu-Medrol, Symbicort as maintenance. The patient was also started on a nicotine patch regarding her history of smoking. Cardizem drip was discontinued and the patient is currently on oral Cardizem 120 mg CD one tablet a day. Rest of the home medications have been resumed including her long-term and coagulation with Eliquis. The patient has seen Dr. Perdomo regarding was her chronic atrial fibrillation. The patient has a loop recorder in place. Her current other cardiac rhythm is sinus. The patient does not use home oxygen. She does not use any form of maintenance of her medications or inhalers. No cerebellar childhood asthma. She is a chronic smoker and she smokes 1 pack of cigarettes a day. Her primary care physician is out of [place]. She sees cardiology locally, Dr. Perdomo. 12/20/2020 on seeing the patient for a follow-up. The patient is slightly improved compared to yesterday. Less short of breath. Still bronchospastic and wheezy. Breath sounds are quite diminished in lung bases bilaterally. Limited tremulous and shaky as the patient is receiving steroids and bronchodilators. The patient is currently on Symbicort maintenance, DuoNeb about treatment [id number], IV Solu Medrol. She is having also increased cough compared to yesterday. No fever. No chills. No other new complaints otherwise for now. Her cardiac rhythm remains sinus. She has no angina. Objective - Vital Signs Vital signs: Vital Signs Temp 97.5 F L 12/20/20 08:00 Pulse 58 L 12/20/20 08:45 Resp 20 12/20/20 08:45 BP 159/64 12/20/20 08:00 Pulse Ox 94 L 12/20/20 08:35 Intake & Output 12/19/20 12/20/20 12/20/20 18:59 06:59 18:59 Weight 85.9 kg Other: Voiding Method Toilet Bedside Commode # Voids 1 - Exam CONSTITUTIONAL: Short of breath. No apparent distress. Head exam was generally normal. There was no scleral icterus or corneal arcus. Mucous membranes were moist. HEENT: Head is normocephalic. Pupils are equal, round. Sclerae anicteric. Mucous membranes of the mouth are moist. No JVD. No carotid bruit. CHEST EXAMINATION: Lungs are expiratory wheezing throughout to auscultation. Chest wall tenderness with cough and deep breathing HEART EXAMINATION: Regular rate and rhythm. S1, S2 heard. No murmurs, gallops or rub. ABDOMEN: Soft, nontender. Positive bowel sounds. EXTREMITIES: 2+ peripheral pulses, no lower extremity edema and no calf tenderness. Examination of the skin revealed no evidence of significant rashes, suspicious appearing nevi or other concerning lesions. NEUROLOGIC EXAMINATION: Patient is awake, alert and oriented x3. - Labs CBC & Chem 7: 12/19/20 06:34 12/19/20 06:34 Labs: Abnormal Lab Results - Last 24 Hours (Table) 12/19/20 12/20/20 12/20/20 Range/Units 19:43 01:59 06:07 POC Glucose (mg/dL) 200 H 132 H 146 H (75-99) mg/dL 12/20/20 Range/Units 11:43 POC Glucose (mg/dL) 145 H (75-99) mg/dL Assessment and Plan Plan: 1 acute COPD exacerbation with secondary shortness of breath , improvement is limited compared to yesterday. Breath sounds are quite diminished and the patient remains actively bronchospastic and wheezy. She remains on oxygen. 2 acute hypoxic respiratory failure secondary to above currently on 4 L to maintain saturation above 90% 3 paroxysmal atrial fibrillation with rapid ventricular response at the time of admission, currently on oral Cardizem and Eliquis for anticoagulation. Cardizem drip was discontinued 4 acute hypoxic respiratory failure secondary to above 5 coronary artery disease with previous in intervention and coronary stent and PCI in 2018 6 hyperlipidemia 7 hypertension 8 history of depression Plan Proceed with a CAT scan of the chest. This will be a noncontrast CAT scan to evaluate lung parenchyma. Patient is ALLERGIC to contrast. COVID-19 testing was negative Wean down the FiO2 to maintain a saturation above 90% Agree on the current treatment Continue bronchodilators and steroids Oral Cardizem Anticoagulation with Eliquis Nicotine patch We'll continue to follow
--- NOTE | 2020-12-20 12:42 | CT ---
EXAMINATION TYPE: CT chest wo con DATE OF EXAM: 12/20/2020 COMPARISON: Chest x-ray 12/19/2020 HISTORY: Cough and shortness of breath. CT DLP: 401.1 mGycm. Automated Exposure Control for Dose Reduction was Utilized. TECHNIQUE: CT scan of the thorax is performed without IV contrast. FINDINGS: LUNGS: The lungs are grossly clear, there is no concerning parenchymal mass or nodule identified. T here is no pleural effusion or pneumothorax seen. The tracheobronchial tree is patent. Hyperinflatio n suggests COPD. Groundglass changes in the left upper lobe perihilar region. Subsegmental changes le ft lung base. Suspect basilar mild bronchiectasis. Interlobular septal thickening involving the left lower lobe suggestive mild chronic interstitial lung disease or fibrosis. MEDIASTINUM: Lack of IV contrast is noted to limit evaluation for mediastinal and especially hilar ad enopathy. There are no definitive greater than 1 cm hilar or mediastinal lymph nodes. Heart size is p rominent there is a small pericardial effusion with coronary artery calcification. Atherosclerotic ch lenora aorta. OTHER: 2 mm mid posterior right renal calculus noted. Simple appearing left renal cyst suspected. Thi ckening of the left adrenal gland is nonspecific.. Left thyroid enlargement with probable lower pole nodule. Hypertrophic and degenerative changes of the spine. IMPRESSION: 1. Suspect COPD with mild chronic interstitial lung disease. Areas of groundglass change in the left perihilar region left lower lobe for which atelectasis is favored over pneumonitis but should be axel elated clinically. 2. Left lower lobe thyroid nodule 3. Small pericardial effusion with cardiomegaly and coronary artery atherosclerotic disease
--- NOTE | 2020-12-20 12:46 | P.PN ---
Subjective This is a pleasant 70 years old female with past medical history of atrial fibrillation on Eliquis, COPD, GERD, hypertension, hyperlipidemia, coronary artery disease status post stent Patient presents because of dyspnea and left-sided chest pain and coughing for 3 days. Patient was at [facility] where they found her to 5 A. fib with RVR in COPD exacerbation. Patient converted to sinus rhythm after started on Cardizem drip. She still mildly dyspneic but no chest pain when she was transferred Patient currently is very short of breath and she cannot finish sentences later dyspnea. She has coughing with clear phlegm. Chest pain with coughing only. She also loses stool She is not on home oxygen on steroids. 5 months ago and she feels bereavement Vitas looks stable and patient saturates 95% on 3 L oxygen via nasal cannula, afebrile. Labs including CBC, BMP and liver enzymes are unremarkable. chest x-ray: No acute process. EKG showing normal sinus rhythm at [address]-T changes cardiology and pulmonary team consulted from 80 12/20/2020 patient is still with dyspnea, she feels better. No chest pain or coughing. She is saturating 90 cm oxygen via nasal cannula. Blood pressure is a stable 159/64. Cardizem 120 mg added yesterday. Metoprolol 25 mg was used. By drilling machine runner team for paroxysmal A. fib. She had only one loose bowel movement yesterday. No bowel movement since morning. Patient remains on Eliquis, Symbicort, Solu-Medrol, normal saline 75mL/hr. Levaquin 750 mg by mouth daily added Objective - Vital Signs Vital signs: Vital Signs Temp 97.5 F L 12/20/20 08:00 Pulse 64 12/20/20 12:15 Resp 18 12/20/20 12:15 BP 159/64 12/20/20 08:00 Pulse Ox 94 L 12/20/20 08:35 Intake & Output 12/19/20 12/20/20 12/20/20 18:59 06:59 18:59 Weight 85.9 kg Other: Voiding Method Toilet Bedside Commode # Voids 1 - Exam GENERAL: The patient is alert and oriented x3, not in any acute distress. Well developed, well nourished. HEENT: Pupils are round and equally reacting to light. EOMI. No scleral icterus. No conjunctival pallor. Normocephalic, atraumatic. No pharyngeal erythema. No thyromegaly. CARDIOVASCULAR: S1 and S2 present. No murmurs, rubs, or gallops. -PULMONARY: Chest is clear to auscultation, bilateral expiratory wheezing. ABDOMEN: Soft, nontender, nondistended, normoactive bowel sounds. No palpable organomegaly. MUSCULOSKELETAL: No joint swelling or deformity. EXTREMITIES: No cyanosis, clubbing, or pedal edema. NEUROLOGICAL: Gross neurological examination did not reveal any focal deficits. SKIN: No rashes. no petechiae. - Labs CBC & Chem 7: 12/19/20 06:34 12/19/20 06:34 Labs: Abnormal Lab Results - Last 24 Hours (Table) 12/19/20 12/20/20 12/20/20 Range/Units 19:43 01:59 06:07 POC Glucose (mg/dL) 200 H 132 H 146 H (75-99) mg/dL 12/20/20 Range/Units 11:43 POC Glucose (mg/dL) 145 H (75-99) mg/dL Assessment and Plan Assessment: Paroxysmal atrial fibrillation, on Eliquis. With RVR on admission COPD with exacerbation Acute hypoxemic respiratory failure Hyperlipidemia History of GERD History of coronary artery disease status post stent Depression with no suicidal ideation. Bereavement Plan: this is a pleasant 70 years old female who presents with A. fib and RVR COPD. Continue with steroids, currently on prednisone 50 mg daily, change it to Solu- Medrol 60 mg Continue gentle hydration cardiology and pulmonary consult Labs and medication were reviewed.. Continue same treatment. Continue with symptomatic treatment. Resume home medication. Monitor lytes and vitals. DVT and GI prophylaxis. Further recommendations depends on the clinical course of the patient DVT prophylaxi: Eliquis GI Prophylaxis: Pepcid PT/OT: Pending Prognosis is guarded
--- NOTE | 2020-12-20 12:46 | P.PN ---
Subjective This is a pleasant 70-year-old female past medical history significant for paroxysmal atrial fibrillation (on Eliquis), coronary artery disease status post PCI to the ostial OM 2017, hypertension and dyslipidemia, loop recorder placed in Apr 2020. She follows in the office with Dr. Perdomo. We have been asked to see in consultation for atrial fibrillation with RVR. Patient was transferred from [facility] for atrial fibrillation with RVR. Patient states she was given a albuterol respiratory treatment and her heart began to race. EKG revealed atrial fibrillation with RVR. She was transferred to [facility] for cardiology evaluation. Patient initially presented to [facility] with complaints of shortness of breath and cough since , she states it is progressively getting worse. She had associated chills on Saturday. She denies fevers, orthopnea of PND. She states she can barely do her normal daily activities or walk around her room/to the bathroom without being short of breath. She has some atypical chest pain around her ribs when she coughs, this is non-radiating, non-exertional, no associated symptoms. She is a current every day smoker 1PPD, last smoked on Saturday. At [facility], Chest xray report revealed patchy bibasilar right greater than left opacities, increased compared to prior study likely subsegmental atelectasis though developing infiltrate cannot be excluded. Hyperinflation of the lungs. Chronic lung disease COPD/emphysema. Labs reveal troponin negative 1, proBNP 151, WBC 6.4, hemoglobin 14.6, platelets 128, sodium 138, potassium 3.8, BUN 20, serum creatinine 0.9, magnesium 1.6. DIAGNOSTICS She underwent a Lexiscan stress test August 2020 revealing probably normal myocardial perfusion imaging with a fixed anteroapical wall defect Most recent echocardiogram obtained in April 2020 EF of 5560 percent, moderate concentric left ventricular hypertrophy, mild tricuspid regurgitation, mild mitral regurgitation 12/20/20 Patient seen and examined at bedside, she states her breathing has somewhat improved. She continues to maintain sinus mechanism heart rate 50s60s. She is currently maintained on Cardizem 120 mg daily, Eliquis 5 mg twice a day, amlodipine 5 mg daily, aspirin 81 mg daily, atorvastatin 40 mg nightly, hydrochlorothiazide 12.5 mg every 48 hours, losartan 50 mg nightly. She underwent a CT chest, report revealed suspect COPD with mild chronic interstitial lung disease. Areas of groundglass changes in the left perihilar region left lower lobe which atelectasis favored of pneumonia pneumonitis. Left lower lobe thyroid nodule, small pericardial effusion with cardiomegaly and coronary artery atherosclerotic disease. PHYSICAL EXAMINATION Blood pressure 159/64, heart rate 50, afebrile, maintaining oxygen saturations 94% on 3 L nasal cannula CONSTITUTIONAL: No apparent distress. HEENT: Neck Supple. No JVD. CHEST EXAMINATION: Lungs are expiratory wheezing throughout to auscultation. C hest wall tenderness with cough and deep breathing HEART EXAMINATION: Regular rate and rhythm. S1, S2 heard. No murmurs, gallops or rub. ABDOMEN: Soft, nontender. Positive bowel sounds. EXTREMITIES: 2+ peripheral pulses, no lower extremity edema and no calf tenderness. NEUROLOGIC EXAMINATION: Patient is awake, alert and oriented x3. ASSESSMENT Atrial fibrillation with RVR- on Eliquis. Currently maintaining sinus mechanism. Chest pain, atypical, worse with coughing, acute coronary syndrome ruled out COPD exacerbation Coronary artery disease status post PCI 2017 Hypertension Dyslipidemia PLAN -We will continue to discontinue patient's metoprolol -Continue cardizem 120mg daily -Continue Eliquis 5 mg twice a day, amlodipine, atorvastatin, losartan -Pulmonary following -Patient requesting to be discharged, patient is stable from a cardiology perspective, no further adjustments or cardiac testing at this time. -Patient to follow up with Dr. Perdomo as an outpatient. Nurse Practitioner note has been reviewed, I agree with a documented findings and plan of care. Patient was seen and examined. Objective - Vital Signs Vital signs: Vital Signs Temp 98.1 F 12/20/20 04:00 Pulse 58 L 12/20/20 08:45 Resp 20 12/20/20 08:45 BP 152/69 12/20/20 04:00 Pulse Ox 94 L 12/20/20 08:35 Intake & Output 12/19/20 12/20/20 12/20/20 18:59 06:59 18:59 Weight 85.9 kg Other: Voiding Method Toilet Bedside Commode # Voids 1 - Labs CBC & Chem 7: 12/19/20 06:34 12/19/20 06:34 Labs: Abnormal Lab Results - Last 24 Hours (Table) 1012/20/20 12/20/20 Range/Units 19:43 01:59 06:07 POC Glucose (mg/dL) 200 H 132 H 146 H (75-99) mg/dL
[2020-12-20] MEDS: ALPRAZolam 0.5 MG TAB PO PRN (13:01)
[2020-12-20] MEDS: LEVOFLOXACIN 750 MG TAB PO SCH (16:15)
[2020-12-20 16:36] LABS: Glucose,Whole Blood 158 mg/dL (75-99)
[2020-12-20 20:28] LABS: Glucose,Whole Blood 174 mg/dL (75-99)
[2020-12-20] MEDS: ATORVASTATIN 40 MG TAB PO SCH (20:44)
[2020-12-20] MEDS: FAMOTIDINE 20 MG TAB PO SCH (20:44)
[2020-12-20] MEDS: LOSARTAN 50 MG TAB PO SCH (20:44)
[2020-12-20] MEDS: CITALOPRAM HYDROBROMIDE 10 MG TAB PO SCH ×2 (21:17→23:02)
[2020-12-21 06:14] LABS: Glucose,Whole Blood 140 mg/dL (75-99)
[2020-12-21] MEDS: methylPREDNISolone SOD SUCCI 125 MG/2 ML VIAL IV SCH ×4 (06:46→23:32)
[2020-12-21] MEDS: SODIUM CHLORIDE 0.9% 1,000 ML IV SCH (06:46)
[2020-12-21] MEDS: INSULIN ASPART (NovoLOG) 100 UNIT/ML VIAL SQ SCH ×4 (06:47→20:55)
[2020-12-21] MEDS: SYMBICORT 160-4.5 MCG INHALER INHALATION SCH ×2 (08:50→21:12)
[2020-12-21] MEDS: NICOTINE 21MG/24HR PATCH TRANSDERM SCH (09:21)
[2020-12-21] MEDS: APIXABAN 5 MG TAB PO SCH ×2 (09:21→20:55)
[2020-12-21] MEDS: DILTIAZEM CD 120 MG CAP.ER.24H PO SCH (09:21)
[2020-12-21] MEDS: ASPIRIN 81 MG PO SCH (09:21)
[2020-12-21] MEDS: LEVOFLOXACIN 750 MG TAB PO SCH (09:21)
[2020-12-21] MEDS: hydroCHLOROthiazide 12.5 MG CAP PO SCH (09:21)
[2020-12-21] MEDS: amLODIPine 5 MG TAB PO SCH ×2 (09:21→20:55)
[2020-12-21] MEDS: CHOLECALCIFEROL 10 MCG (400 IU) TABLET PO SCH (09:22)
[2020-12-21] MEDS ORDERED: PSEUDOEPHEDRINE 30 MG TAB PO ONE (10:15)
--- NOTE | 2020-12-21 10:26 | P.PN ---
Subjective This is a pleasant 70 years old female with past medical history of atrial fibrillation on Eliquis, COPD, GERD, hypertension, hyperlipidemia, coronary artery disease status post stent Patient presents because of dyspnea and left-sided chest pain and coughing for 3 days. Patient was at [facility] where they found her to 5 A. fib with RVR in COPD exacerbation. Patient converted to sinus rhythm after started on Cardizem drip. She still mildly dyspneic but no chest pain when she was transferred Patient currently is very short of breath and she cannot finish sentences later dyspnea. She has coughing with clear phlegm. Chest pain with coughing only. She also loses stool She is not on home oxygen on steroids. 5 months ago and she feels bereavement Vitas looks stable and patient saturates 95% on 3 L oxygen via nasal cannula, afebrile. Labs including CBC, BMP and liver enzymes are unremarkable. chest x-ray: No acute process. EKG showing normal sinus rhythm at [address]-T changes cardiology and pulmonary team consulted from 80 12/20/2020 patient is still with dyspnea, she feels better. No chest pain or coughing. She is saturating 90 cm oxygen via nasal cannula. Blood pressure is a stable 159/64. Cardizem 120 mg added yesterday. Metoprolol 25 mg was used. 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 She had only one loose bowel movement yesterday. No bowel movement since morning. Patient remains on Eliquis, Symbicort, Solu-Medrol, normal saline 75mL/hr. Levaquin 750 mg by mouth daily added 12/21/2020 Dyspnea is improving, she still have dry cough and runny nose. For which Ro bitussin and 1 dose of pseudoephedrine is ordered. No chest pain. Diarrhea is better. Hemodynamically stable but she is hypertensive with blood pressure 188/79. Patient is eating well. IV fluids were stopped. Add hydralazine 50 mg to help with steroid effect. CT of the chest without contrast showing COPD with interstitial lung disease which looks chronic. Also there is an area of groundglass opacity in the left perihilar region with atelectasis suspected. Also left thyroid Nodule which can be followed as an outpatient. Check TSH. Patient remains on Solu-Medrol 60 mg, Levaquin 750 mg orally. On home dose of Eliquis Objective - Vital Signs Vital signs: Vital Signs Temp 97.7 F 12/21/20 08:00 Pulse 71 12/21/20 08:00 Resp 20 12/21/20 08:00 BP 189/79 12/21/20 08:00 Pulse Ox 93 L 12/21/20 08:00 Intake & Output 12/20/20 12/21/20 12/21/20 18:59 06:59 18:59 Intake Total 240 0 Balance 240 0 Weight 102 kg Intake: Oral 240 0 Other: Voiding Method Toilet Toilet Bedside Commode # Voids 1 1 # Bowel Movements 0 - Exam GENERAL: The patient is alert and oriented x3, not in any acute distress. Well developed, well nourished. HEENT: Pupils are round and equally reacting to light. EOMI. No scleral icterus. No conjunctival pallor. Normocephalic, atraumatic. No pharyngeal erythema. No thyromegaly. CARDIOVASCULAR: S1 and S2 present. No murmurs, rubs, or gallops. -PULMONARY: Chest is clear to auscultation, bilateral expiratory wheezing. ABDOMEN: Soft, nontender, nondistended, normoactive bowel sounds. No palpable organomegaly. MUSCULOSKELETAL: No joint swelling or deformity. EXTREMITIES: No cyanosis, clubbing, or pedal edema. NEUROLOGICAL: Gross neurological examination did not reveal any focal deficits. SKIN: No rashes. no petechiae. - Labs CBC & Chem 7: 12/19/20 06:34 12/19/20 06:34 Labs: Abnormal Lab Results - Last 24 Hours (Table) 12/20/20 12/20/20 12/20/20 Range/Units 11:43 16:35 20:26 POC Glucose (mg/dL) 145 H 158 H 174 H (75-99) mg/dL 12/21/20 Range/Units 06:13 POC Glucose (mg/dL) 140 H (75-99) mg/dL Assessment and Plan Assessment: COPD with exacerbation Paroxysmal atrial fibrillation, on Eliquis. With RVR on admission Left thyroid nodule Acute hypoxemic respiratory failure Hyperlipidemia History of GERD History of coronary artery disease status post stent Depression with no suicidal ideation. Bereavement Plan: this is a pleasant 70 years old female who presents with A. fib and RVR COPD. Continue with steroids, currently on Solu-Medrol 60 mg. Robitussin Discontinue IV fluids cardiology and pulmonary consult Labs and medication were reviewed.. Continue same treatment. Continue with symptomatic treatment. Resume home medication. Monitor lytes and vitals. DVT and GI prophylaxis. Further recommendations depends on the clinical course of the patient DVT prophylaxi: Eliquis GI Prophylaxis: Pepcid PT/OT: Pending Prognosis is guarded
[2020-12-21 11:42] LABS: Glucose,Whole Blood 129 mg/dL (75-99)
[2020-12-21] MEDS ORDERED: methylPREDNISolone SOD SUCCI 125 MG/2 ML VIAL IV SCH (12:00)
--- NOTE | 2020-12-21 12:11 | P.PN ---
Subjective Progress Note Date: 12/21/20 70-year-old female patient hospitalized today because of shortness of breath. The patient was seen in the emergency department with symptoms of cough and dyspnea. She was also found to have an acute exacerbation of her chronic atrial fibrillation and the patient had a rapid ventricular response. The patient was demented on a combination of metoprolol and Eliquis on outpatient basis. She was started on a Cardizem infusion. Following consultation and a cardiology consultation was requested. Note that the patient was at [facility] with atrial fibrillation and RVR which is essentially the same issue. The patient converted to normal sinus rhythm. The patient remained dyspneic and based on that she was transferred to our hospital. In terms of workup, the patient was kept on these about 2 by nasal cannula with a pulse of 95%. CBC and complete metabolic profile was unremarkable. EKG showed a normal sinus rhythm. Chest x-ray showed no acute cardio pulmonary process. The patient a white cell count of 10 with a hemoglobin of 14.1. Mean was 30 with a creatinine of 0.7. Glucose 110. Troponin was 0.0 26 and the proBNP level was 742. COVID-19 testing was also negative. The patient for now is currently on DuoNeb nebulized treatments around the clock, IV Solu-Medrol, Symbicort as maintenance. The patient was also started on a nicotine patch regarding her history of smoking. Cardizem drip was discontinued and the patient is currently on oral Cardizem 120 mg CD one tablet a day. Rest of the home medications have been resumed including her long-term and coagulation with Eliquis. The patient has seen Dr. Perdomo regarding was her chronic atrial fibrillation. The patient has a loop recorder in place. Her current other cardiac rhythm is sinus. The patient does not use home oxygen. She does not use any form of maintenance of her medications or inhalers. No cerebellar childhood asthma. She is a chronic smoker and she smokes 1 pack of cigarettes a day. Her primary care physician is out of [employer]. She sees cardiology locally, Dr. Perdomo. 12/20/2020 on seeing the patient for a follow-up. The patient is slightly improved compared to yesterday. Less short of breath. Still bronchospastic and wheezy. Breath sounds are quite diminished in lung bases bilaterally. Limited tremulous and shaky as the patient is receiving steroids and bronchodilators. The patient is currently on Symbicort maintenance, DuoNeb about treatment [id number], IV Solu Medrol. She is having also increased cough compared to yesterday. No fever. No chills. No other new complaints otherwise for now. Her cardiac rhythm remains sinus. She has no angina. 12/21/2020, I'm seeing the patient for a follow-up. Clinically she is slowly improving. Cough is improved compared to yesterday. She is much less bronchospastic and wheezy compared to yesterday. A computed tomography scan of the chest was done and this was a noncontrast CAT scan and it showed no evidence of any significant emphysematous changes. Some limited groundglass nonspecific changes were seen bilaterally. No clear evidence of pneumonia. The patient was anyway covered with Levaquin 750 mg by mouth daily. She remains on IV Solu Medrol. She remains on DuoNeb nebulized treatments 4 times a day. She is on Symbicort as maintenance. She had cardiac rhythm remains sinus. She is having some issues with blood pressure elevation and she is also on a combination of hydrochlorothiazide, Cardizem and Norvasc. She is on a dose of 5 mg of Norvasc which I would suggest increased dose up to 10 mg for tighter blood pressure control. Objective - Vital Signs Vital signs: Vital Signs Temp 97.7 F 12/21/20 08:00 Pulse 71 12/21/20 08:00 Resp 20 12/21/20 08:00 BP 189/79 12/21/20 08:00 Pulse Ox 93 L 12/21/20 08:00 Intake & Output 12/20/20 12/21/20 12/21/20 18:59 06:59 18:59 Intake Total 240 0 Balance 240 0 Weight 102 kg Intake: Oral 240 0 Other: Voiding Method Toilet Toilet Bedside Commode # Voids 1 1 # Bowel Movements 0 - Exam CONSTITUTIONAL: Short of breath. No apparent distress. Head exam was generally normal. There was no scleral icterus or corneal arcus. Mucous membranes were moist. HEENT: Head is normocephalic. Pupils are equal, round. Sclerae anicteric. Mucous membranes of the mouth are moist. No JVD. No carotid bruit. CHEST EXAMINATION: Lungs are expiratory wheezing throughout to auscultation. Chest wall tenderness with cough and deep breathing HEART EXAMINATION: Regular rate and rhythm. S1, S2 heard. No murmurs, gallops or rub. ABDOMEN: Soft, nontender. Positive bowel sounds. EXTREMITIES: 2+ peripheral pulses, no lower extremity edema and no calf tenderness. Examination of the skin revealed no evidence of significant rashes, suspicious appearing nevi or other concerning lesions. NEUROLOGIC EXAMINATION: Patient is awake, alert and oriented x3. - Labs CBC & Chem 7: 12/19/20 06:34 12/19/20 06:34 Labs: Abnormal Lab Results - Last 24 Hours (Table) 12/20/20 12/20/20 12/21/20 Range/Units 16:35 20:26 06:13 POC Glucose (mg/dL) 158 H 174 H 140 H (75-99) mg/dL 12/21/20 Range/Units 11:36 POC Glucose (mg/dL) 129 H (75-99) mg/dL Assessment and Plan Plan: 1 acute COPD exacerbation with secondary shortness of breath , improvement is limited compared to yesterday. Breath sounds are quite diminished and the patient remains actively bronchospastic and wheezy. She remains on oxygen. There is computed tomography scan of the chest was reviewed and there is no evidence of any significant pneumonia or chronic lung disease. 2 acute hypoxic respiratory failure secondary to above currently on 4 L to maintain saturation above 90%, the patient was weaned down to 2 L of Oxymizer nasal cannula 3 paroxysmal atrial fibrillation with rapid ventricular response at the time of admission, currently on oral Cardizem and Eliquis for anticoagulation. Cardizem drip was discontinued, the patient is currently on oral Cardizem and the patient is also on anticoagulation with Eliquis. She remains in a normal sinus rhythm. 4 acute hypoxic respiratory failure secondary to above 5 coronary artery disease with previous in intervention and coronary stent and PCI in 2018 6 hyperlipidemia 7 hypertension, currently on a combination of hydrochlorothiazide, oral Cardizem and Norvasc. Review of the computed tomography scan of the chest and discussed with the patient 8 history of depression Plan Reviewed the CAT scan of the chest and results were discussed with the patient COVID-19 testing was negative Wean down the FiO2 to maintain a saturation above 90% Agree on the current treatment Continue bronchodilators and steroids Oral Cardizem Anticoagulation with Eliquis Nicotine patch Continue hydralazine and hydrochlorothiazide and increasing her Norvasc to 10 mg by mouth daily Vital signs her blood pressure control Clinically improving increased mobility and activity We'll continue to follow
[2020-12-21] MEDS: IPRATROPIUM-ALBUTEROL 3 ML NEB INHALATION PRN ×2 (12:16→21:12)
[2020-12-21] MEDS: guaiFENesin-DM 100-10MG/5ML 10 ML CUP PO SCH ×3 (12:37→23:32)
[2020-12-21] MEDS: hydrALAZINE HCL 50 MG TAB PO SCH ×2 (12:38→20:55)
[2020-12-21 16:59] LABS: Glucose,Whole Blood 130 mg/dL (75-99)
[2020-12-21 20:02] LABS: Glucose,Whole Blood 191 mg/dL (75-99)
[2020-12-21] MEDS: ATORVASTATIN 40 MG TAB PO SCH (20:54)
[2020-12-21] MEDS: FAMOTIDINE 20 MG TAB PO SCH (20:54)
[2020-12-21] MEDS: LOSARTAN 50 MG TAB PO SCH (20:55)
[2020-12-21] MEDS: CITALOPRAM HYDROBROMIDE 10 MG TAB PO SCH (21:14)
[2020-12-21] MEDS ORDERED: DILTIAZEM DRIP BOLUS FROM BAG 1 MG SOLN IV ONE (23:17)
[2020-12-21] MEDS ORDERED: DILTIAZEM 125 MG in SODIUM CHLORIDE 0.9% 100 ML IV SCH (23:30)
[2020-12-21] MEDS: ALPRAZolam 0.5 MG TAB PO PRN (23:53)
[2020-12-22 00:11] LABS: T4, Free (Free Thyroxine) 0.96 ng/dL (0.78-2.19)
[2020-12-22] MEDS: guaiFENesin-DM 100-10MG/5ML 10 ML CUP PO SCH ×3 (05:46→18:20)
[2020-12-22] MEDS: methylPREDNISolone SOD SUCCI 125 MG/2 ML VIAL IV SCH ×3 (05:46→18:20)
[2020-12-22 06:07] LABS: Glucose,Whole Blood 158 mg/dL (75-99)
[2020-12-22] MEDS: INSULIN ASPART (NovoLOG) 100 UNIT/ML VIAL SQ SCH ×4 (06:30→22:19)
[2020-12-22] MEDS: SYMBICORT 160-4.5 MCG INHALER INHALATION SCH ×2 (08:05→20:07)
[2020-12-22 08:36] VITALS: BMI 32.9
[2020-12-22] MEDS: NICOTINE 21MG/24HR PATCH TRANSDERM SCH (08:58)
[2020-12-22] MEDS: APIXABAN 5 MG TAB PO SCH ×2 (08:59→22:18)
[2020-12-22] MEDS: CHOLECALCIFEROL 10 MCG (400 IU) TABLET PO SCH (08:59)
[2020-12-22] MEDS: ASPIRIN 81 MG PO SCH (08:59)
[2020-12-22] MEDS: LEVOFLOXACIN 750 MG TAB PO SCH (08:59)
[2020-12-22] MEDS: amLODIPine 5 MG TAB PO SCH ×2 (08:59→22:18)
[2020-12-22] MEDS: hydrALAZINE HCL 50 MG TAB PO SCH ×2 (08:59→22:18)
[2020-12-22] MEDS: DILTIAZEM CD 180 MG CAP.ER.24H PO SCH (08:59)
--- NOTE | 2020-12-22 11:30 | P.PN ---
Subjective This is a pleasant 70-year-old female past medical history significant for paroxysmal atrial fibrillation (on Eliquis), coronary artery disease status post PCI to the ostial OM 2017, hypertension and dyslipidemia, loop recorder placed in Apr 2020. She follows in the office with Dr. Perdomo. We have been asked to see in consultation for atrial fibrillation with RVR. Patient was transferred from [facility] for atrial fibrillation with RVR. Patient states she was given a albuterol respiratory treatment and her heart began to race. EKG revealed atrial fibrillation with RVR. She was transferred to [facility] for cardiology evaluation. Patient initially presented to [facility] with complaints of shortness of breath and cough since , she states it is progressively getting worse. She had associated chills on Saturday. She denies fevers, orthopnea of PND. She states she can barely do her normal daily activities or walk around her room/to the bathroom without being short of breath. She has some atypical chest pain around her ribs when she coughs, this is non-radiating, non-exertional, no associated symptoms. She is a current every day smoker 1PPD, last smoked on Saturday. Patient was switched from metoprolol tartrate to Cardizem 120mg daily and was maintaining sinus mechanism. 12/22/20 Patient seen and examined at bedside, she states her breathing has improved, no longer wheezing. Cardiology was reconsulted because patient went into atrial fibrillation with RVR HR 150s. She received IV Cardizem Drip 10mg bolus and started on a drip at 10mg/hr. She converted to sinus mechanism now with HR 50s- 70s. She is currently maintained on Cardizem 120 mg daily, Eliquis 5 mg twice a day, amlodipine 5 mg daily, aspirin 81 mg daily, atorvastatin 40 mg nightly, hy drochlorothiazide 12.5 mg every 48 hours, losartan 50 mg nightly. Labs reviewed TSH low, free T4 within normal limits. PHYSICAL EXAMINATION Blood pressure 143/67, heart rate 73, afebrile, maintaining oxygen saturations 98% on 2 L nasal cannula CONSTITUTIONAL: No apparent distress. HEENT: Neck Supple. No JVD. CHEST EXAMINATION: Lungs are expiratory wheezing throughout to auscultation. Chest wall tenderness with cough and deep breathing HEART EXAMINATION: Regular rate and rhythm. S1, S2 heard. No murmurs, gallops or rub. ABDOMEN: Soft, nontender. Positive bowel sounds. EXTREMITIES: 2+ peripheral pulses, no lower extremity edema and no calf tenderness. NEUROLOGIC EXAMINATION: Patient is awake, alert and oriented x3. ASSESSMENT Atrial fibrillation with RVR- on Eliquis. Currently maintaining sinus mechanism. Chest pain, atypical, worse with coughing, acute coronary syndrome ruled out COPD exacerbation Coronary artery disease status post PCI 2018 Hypertension Dyslipidemia PLAN -We will continue to discontinue patient's metoprolol -Increase cardizem 180mg daily -Continue Eliquis 5 mg twice a day, amlodipine, atorvastatin, losartan -Pulmonary following -Continue cardiac telemetry -Further recommendations based on clinical course -Patient to follow up with Dr. Perdomo as an outpatient. Nurse Practitioner note has been reviewed, I agree with a documented findings and plan of care. Patient was seen and examined. Objective - Vital Signs Vital signs: Vital Signs Temp 98.3 F 12/22/20 04:00 Pulse 79 12/22/20 04:00 Resp 20 12/22/20 04:00 BP 117/71 12/22/20 04:00 Pulse Ox 96 12/22/20 04:00 Intake & Output 12/21/20 12/22/20 12/22/20 18:59 06:59 18:59 Intake Total 330 480 Balance 330 480 Weight 87 kg 87 kg Intake: Intake, IV Titration 150 240 Amount Sodium Chloride 0.9% 1, 150 240 000 ml @ 75 mls/hr IV . [id number] [facility] Rx#:[id number] Oral 180 240 Other: # Voids 2 2 1 # Bowel Movements 0 1 - Labs CBC & Chem 7: 12/19/20 06:34 12/19/20 06:34 Labs: Abnormal Lab Results - Last 24 Hours (Table) 12/21/20 12/21/20 12/21/20 Range/Units 11:36 16:52 20:00 POC Glucose (mg/dL) 129 H 130 H 191 H (75-99) mg/dL TSH (0.465-4.680) mIU/L 12/21/20 12/22/20 Range/Units 22:38 06:06 POC Glucose (mg/dL) 158 H (75-99) mg/dL TSH 0.063 L (0.465-4.680) mIU/L
[2020-12-22 11:36] LABS: Glucose,Whole Blood 139 mg/dL (75-99)
--- NOTE | 2020-12-22 12:59 | P.PN ---
Subjective This is a pleasant 70 years old female with past medical history of atrial fibrillation on Eliquis, COPD, GERD, hypertension, hyperlipidemia, coronary artery disease status post stent Patient presents because of dyspnea and left-sided chest pain and coughing for 3 days. Patient was at [facility] where they found her to 5 A. fib with RVR in COPD exacerbation. Patient converted to sinus rhythm after started on Cardizem drip. She still mildly dyspneic but no chest pain when she was transferred Patient currently is very short of breath and she cannot finish sentences later dyspnea. She has coughing with clear phlegm. Chest pain with coughing only. She also loses stool She is not on home oxygen on steroids. 5 months ago and she feels bereavement Vitas looks stable and patient saturates 95% on 3 L oxygen via nasal cannula, afebrile. Labs including CBC, BMP and liver enzymes are unremarkable. chest x-ray: No acute process. EKG showing normal sinus rhythm at [address]-T changes cardiology and pulmonary team consulted from 80 12/20/2020 patient is still with dyspnea, she feels better. No chest pain or coughing. She is saturating 90 cm oxygen via nasal cannula. Blood pressure is a stable 159/64. Cardizem 120 mg added yesterday. Metoprolol 25 mg was used. By company driver team for paroxysmal A. fib. She had only one loose bowel movement yesterday. No bowel movement since morning. Patient remains on Eliquis, Symbicort, Solu-Medrol, normal saline 75mL/hr. Levaquin 750 mg by mouth daily added 12/21/2020 Dyspnea is improving, she still have dry cough and runny nose. For which Ro bitussin and 1 dose of pseudoephedrine is ordered. No chest pain. Diarrhea is better. Hemodynamically stable but she is hypertensive with blood pressure 188/79. Patient is eating well. IV fluids were stopped. Add hydralazine 50 mg to help with steroid effect. CT of the chest without contrast showing COPD with interstitial lung disease which looks chronic. Also there is an area of groundglass opacity in the left perihilar region with atelectasis suspected. Also left thyroid Nodule which can be followed as an outpatient. Check TSH. Patient remains on Solu-Medrol 60 mg, Levaquin 750 mg orally. On home dose of Eliquis 12/22/2020 Patient breathing was better however she developed an episode of A. fib and RVR with heart rate up to 180 last night. It isn't drip and stop this morning by company driver while increasing her dose of Cardizem 120 mg up to 180 mg. Rest of vitals are stable. Labs showing low TSH but normal free T4. Patient made aware of her left thyroid nodule and she states that she will follow up with her PCP doctor who referred her for thyroid scan anyway as an outpatient. She was instructed to get her thyroid scan soon after discharge within one week and she agrees. Continue on Solu-Medrol 60 mg, oral Levaquin 750 mg. Continue with Eliquis Objective - Vital Signs Vital signs: Vital Signs Temp 97.9 F 12/22/20 08:40 Pulse 73 12/22/20 08:40 Resp 16 12/22/20 08:40 BP 143/67 12/22/20 08:40 Pulse Ox 98 12/22/20 08:40 Intake & Output 12/21/20 12/22/20 12/22/20 18:59 06:59 18:59 Intake Total 330 480 Balance 330 480 Weight 87 kg 87 kg Intake: Intake, IV Titration 150 240 Amount Sodium Chloride 0.9% 1, 150 240 000 ml @ 75 mls/hr IV . [id number] [facility] Rx#:[id number] Oral 180 240 Other: Voiding Method Toilet # Voids 2 2 1 # Bowel Movements 0 1 - Exam GENERAL: The patient is alert and oriented x3, not in any acute distress. Well developed, well nourished. HEENT: Pupils are round and equally reacting to light. EOMI. No scleral icterus. No conjunctival pallor. Normocephalic, atraumatic. No pharyngeal erythema. No thyromegaly. CARDIOVASCULAR: S1 and S2 present. No murmurs, rubs, or gallops. -PULMONARY: Chest is clear to auscultation, bilateral expiratory wheezing. ABDOMEN: Soft, nontender, nondistended, normoactive bowel sounds. No palpable organomegaly. MUSCULOSKELETAL: No joint swelling or deformity. EXTREMITIES: No cyanosis, clubbing, or pedal edema. NEUROLOGICAL: Gross neurological examination did not reveal any focal deficits. SKIN: No rashes. no petechiae. - Labs CBC & Chem 7: 12/19/20 06:34 12/19/20 06:34 Labs: Abnormal Lab Results - Last 24 Hours (Table) 12/21/20 12/21/20 12/21/20 Range/Units 16:52 20:00 22:38 POC Glucose (mg/dL) 130 H 191 H (75-99) mg/dL TSH 0.063 L (0.465-4.680) mIU/L 12/22/20 12/22/20 Range/Units 06:06 11:34 POC Glucose (mg/dL) 158 H 139 H (75-99) mg/dL TSH (0.465-4.680) mIU/L Assessment and Plan Assessment: COPD with exacerbation Paroxysmal atrial fibrillation, on Eliquis. With RVR on admission Left thyroid nodule Acute hypoxemic respiratory failure Hyperlipidemia History of GERD History of coronary artery disease status post stent Depression with no suicidal ideation. Bereavement Plan: this is a pleasant 70 years old female who presents with A. fib and RVR COPD. Continue with steroids, currently on Solu-Medrol 60 mg. Robitussin Discontinue IV fluids cardiology and pulmonary consult Labs and medication were reviewed.. Continue same treatment. Continue with symptomatic treatment. Resume home medication. Monitor lytes and vitals. DVT and GI prophylaxis. Further recommendations depends on the clinical course of the patient DVT prophylaxi: Eliquis GI Prophylaxis: Pepcid PT/OT: Pending Prognosis is guarded
--- NOTE | 2020-12-22 14:20 | P.PN ---
Subjective [facility] Note Date: 12/22/20 70-year-old female patient hospitalized today because of shortness of breath. The patient was seen in the emergency department with symptoms of cough and dyspnea. She was also found to have an acute exacerbation of her chronic atrial fibrillation and the patient had a rapid ventricular response. The patient was demented on a combination of metoprolol and Eliquis on outpatient basis. She was started on a Cardizem infusion. Following consultation and a cardiology consultation was requested. Note that the patient was at [facility] with atrial fibrillation and RVR which is essentially the same issue. The patient converted to normal sinus rhythm. The patient remained dyspneic and based on that she was transferred to our hospital. In terms of workup, the patient was kept on these about 2 by nasal cannula with a pulse of 95%. CBC and complete metabolic profile was unremarkable. EKG showed a normal sinus rhythm. Chest x-ray showed no acute cardio pulmonary process. The patient a white cell count of 10 with a hemoglobin of 14.1. Mean was 30 with a creatinine of 0.7. Glucose 110. Troponin was 0.0 26 and the proBNP level was 742. COVID-19 testing was also negative. The patient for now is currently on DuoNeb nebulized treatments around the clock, IV Solu-Medrol, Symbicort as maintenance. The patient was also started on a nicotine patch regarding her history of smoking. Cardizem drip was discontinued and the patient is currently on oral Cardizem 120 mg CD one tablet a day. Rest of the home medications have been resumed including her long-term and coagulation with Eliquis. The patient has seen Dr. Perdomo regarding was her chronic atrial fibrillation. The patient has a loop recorder in place. Her current other cardiac rhythm is sinus. The patient does not use home oxygen. She does not use any form of maintenance of her medications or inhalers. No cerebellar childhood asthma. She is a chronic smoker and she smokes 1 pack of cigarettes a day. Her primary care physician is out of [place]. She sees cardiology locally, Dr. Perdomo. 12/20/2020 on seeing the patient for a follow-up. The patient is slightly improved compared to yesterday. Less short of breath. Still bronchospastic and wheezy. Breath sounds are quite diminished in lung bases bilaterally. Limited tremulous and shaky as the patient is receiving steroids and bronchodilators. The patient is currently on Symbicort maintenance, DuoNeb about treatment [id number], IV Solu Medrol. She is having also increased cough compared to yesterday. No fever. No chills. No other new complaints otherwise for now. Her cardiac rhythm remains sinus. She has no angina. 12/21/2020, I'm seeing the patient for a follow-up. Clinically she is slowly improving. Cough is improved compared to yesterday. She is much less bronchospastic and wheezy compared to yesterday. A computed tomography scan of the chest was done and this was a noncontrast CAT scan and it showed no evidence of any significant emphysematous changes. Some limited groundglass nonspecific changes were seen bilaterally. No clear evidence of pneumonia. The patient was anyway covered with Levaquin 750 mg by mouth daily. She remains on IV Solu Medrol. She remains on DuoNeb nebulized treatments 4 times a day. She is on Symbicort as maintenance. She had cardiac rhythm remains sinus. She is having some issues with blood pressure elevation and she is also on a combination of hydrochlorothiazide, Cardizem and Norvasc. She is on a dose of 5 mg of Norvasc which I would suggest increased dose up to 10 mg for tighter blood pressure control. On 2020, the patient is feeling better. She is less short of breath. Nevertheless, overnight, she went into atrial fibrillation with rapid ventricul ar response. This occurred approximately 10 PM yesterday. The patient had a rate of 179 beats per minute. She was started on a Cardizem drip and within 3 hours she converted back into normal sinus rhythm. Cardiology saw the patient and they discontinued the DuoNeb nebulized treatments. They increased the Cardizem to 180 mg CD one tablet a day. The patient is currently off metoprolol. She is less bronchospastic and wheezy and she is on room air oxygen. No other issues otherwise for now. She remains on long-term anticoagulation with Eliquis. Objective - Vital Signs Vital signs: Vital Signs Temp 97.9 F 12/22/20 11:55 Pulse 82 12/22/20 11:55 Resp 18 12/22/20 11:55 BP 124/57 12/22/20 11:55 Pulse Ox 95 12/22/20 11:55 Intake & Output 12/21/20 12/22/20 12/22/20 18:59 06:59 18:59 Intake Total 330 480 240 Balance 330 480 240 Weight 87 kg 87 kg Intake: Intake, IV Titration 150 240 Amount Sodium Chloride 0.9% 1, 150 240 000 ml @ 75 mls/hr IV . [id number] [facility] Rx#:[id number] Oral 180 240 240 Other: Voiding Method Toilet # Voids 2 2 1 # Bowel Movements 0 1 - Exam CONSTITUTIONAL: Short of breath. No apparent distress. Head exam was generally normal. There was no scleral icterus or corneal arcus. Mucous membranes were moist. HEENT: Head is normocephalic. Pupils are equal, round. Sclerae anicteric. Mucous membranes of the mouth are moist. No JVD. No carotid bruit. CHEST EXAMINATION: Lungs are expiratory wheezing throughout to auscultation. Chest wall tenderness with cough and deep breathing HEART EXAMINATION: Regular rate and rhythm. S1, S2 heard. No murmurs, gallops or rub. ABDOMEN: Soft, nontender. Positive bowel sounds. EXTREMITIES: 2+ peripheral pulses, no lower extremity edema and no calf tenderness. Examination of the skin revealed no evidence of significant rashes, suspicious appearing nevi or other concerning lesions. NEUROLOGIC EXAMINATION: Patient is awake, alert and oriented x3. - Labs CBC & Chem 7: 12/19/20 06:34 12/19/20 06:34 Labs: Abnormal Lab Results - Last 24 Hours (Table) 12/21/20 12/21/20 12/21/20 Range/Units 16:52 20:00 22:38 POC Glucose (mg/dL) 130 H 191 H (75-99) mg/dL TSH 0.063 L (0.465-4.680) mIU/L 12/22/20 12/22/20 Range/Units 06:06 11:34 POC Glucose (mg/dL) 158 H 139 H (75-99) mg/dL TSH (0.465-4.680) mIU/L Assessment and Plan Plan: 1 acute COPD exacerbation with secondary shortness of breath , improvement is limited compared to yesterday. Breath sounds are quite diminished and the patient remains actively bronchospastic and wheezy. She remains on oxygen. There is computed tomography scan of the chest was reviewed and there is no evidence of any significant pneumonia or chronic lung disease.The patient is clinically the patient is clinically improving, less bronchospastic and wheezy. 2 acute hypoxic respiratory failure secondary to above currently on 4 L to maintain saturation above 90%, the patient was weaned down to 2 L of Oxymizer nasal cannula 3 paroxysmal atrial fibrillation with rapid ventricular response at the time of admission, currently on oral Cardizem and Eliquis for anticoagulation. Cardizem drip was discontinued, the patient is currently on oral Cardizem and the patient is also on anticoagulation with Eliquis. She remains in a normal sinus rhythm. He had another bout of atrial fibrillation overnight. The patient was taken off the DuoNeb nebulized treatments. She is only on Symbicort and systemic steroids for now. Cardiac rhythm went into normal sinus rhythm after 3 hours. She is currently on Cardizem CD 180 mg by mouth daily. She is also on long-term anticoagulation with Eliquis. 4 acute hypoxic respiratory failure secondary to above 5 coronary artery disease with previous in intervention and coronary stent and PCI in 2018 6 hyperlipidemia 7 hypertension, currently on a combination of hydrochlorothiazide, oral Cardizem and Norvasc. Review of the computed tomography scan of the chest and discussed with the patient 8 history of depression Plan Agree on stopping the DuoNeb for now Continue IV Solu Medrol for another 24 hours and switch this patient a prednisone burst taper as of tomorrow Continue Levaquin Continue Symbicort Continue oral Cardizem and anticoagulation with Eliquis Nicotine patch Continue hydralazine and hydrochlorothiazide and increasing her Norvasc to 10 mg by mouth daily Vital signs her blood pressure control Clinically improving increased mobility and activity We'll continue to follow
[2020-12-22 16:45] LABS: Glucose,Whole Blood 129 mg/dL (75-99)
[2020-12-22 20:26] LABS: Glucose,Whole Blood 140 mg/dL (75-99)
[2020-12-22] MEDS: FAMOTIDINE 20 MG TAB PO SCH (22:17)
[2020-12-22] MEDS: LOSARTAN 50 MG TAB PO SCH (22:17)
[2020-12-22] MEDS: CITALOPRAM HYDROBROMIDE 10 MG TAB PO SCH (22:18)
[2020-12-22] MEDS: ATORVASTATIN 40 MG TAB PO SCH (22:19)
[2020-12-23] MEDS: guaiFENesin-DM 100-10MG/5ML 10 ML CUP PO SCH ×3 (00:20→16:30)
[2020-12-23] MEDS: methylPREDNISolone SOD SUCCI 125 MG/2 ML VIAL IV SCH ×2 (00:20→07:07)
[2020-12-23 02:26] VITALS: TEMP 97.2
[2020-12-23 06:05] LABS: Glucose,Whole Blood 163 mg/dL (75-99)
[2020-12-23] MEDS: INSULIN ASPART (NovoLOG) 100 UNIT/ML VIAL SQ SCH ×3 (07:07→17:09)
[2020-12-23] MEDS: SYMBICORT 160-4.5 MCG INHALER INHALATION SCH (07:30)
[2020-12-23] MEDS: APIXABAN 5 MG TAB PO SCH (09:13)
[2020-12-23] MEDS: amLODIPine 5 MG TAB PO SCH (09:13)
[2020-12-23] MEDS: hydrALAZINE HCL 50 MG TAB PO SCH (09:13)
[2020-12-23] MEDS: hydroCHLOROthiazide 12.5 MG CAP PO SCH (09:13)
[2020-12-23] MEDS: NICOTINE 21MG/24HR PATCH TRANSDERM SCH (09:13)
[2020-12-23] MEDS: LEVOFLOXACIN 750 MG TAB PO SCH (09:13)
[2020-12-23] MEDS: ASPIRIN 81 MG PO SCH (09:13)
[2020-12-23] MEDS: DILTIAZEM CD 180 MG CAP.ER.24H PO SCH (09:13)
[2020-12-23] MEDS: CHOLECALCIFEROL 10 MCG (400 IU) TABLET PO SCH (09:14)
[2020-12-23 09:20] VITALS: RESP 16
[2020-12-23 11:46] LABS: Glucose,Whole Blood 145 mg/dL (75-99)
--- NOTE | 2020-12-23 12:45 | P.PN ---
Subjective Progress Note Date: 12/23/20 70-year-old female patient hospitalized today because of shortness of breath. The patient was seen in the emergency department with symptoms of cough and dyspnea. She was also found to have an acute exacerbation of her chronic atrial fibrillation and the patient had a rapid ventricular response. The patient was demented on a combination of metoprolol and Eliquis on outpatient basis. She was started on a Cardizem infusion. Following consultation and a cardiology consultation was requested. Note that the patient was at [facility] with atrial fibrillation and RVR which is essentially the same issue. The patient converted to normal sinus rhythm. The patient remained dyspneic and based on that she was transferred to our hospital. In terms of workup, the patient was kept on these about 2 by nasal cannula with a pulse of 95%. CBC and complete metabolic profile was unremarkable. EKG showed a normal sinus rhythm. Chest x-ray showed no acute cardio pulmonary process. The patient a white cell count of 10 with a hemoglobin of 14.1. Mean was 30 with a creatinine of 0.7. Glucose 110. Troponin was 0.0 26 and the proBNP level was 742. COVID-19 testing was also negative. The patient for now is currently on DuoNeb nebulized treatments around the clock, IV Solu-Medrol, Symbicort as maintenance. The patient was also started on a nicotine patch regarding her history of smoking. Cardizem drip was discontinued and the patient is currently on oral Cardizem 120 mg CD one tablet a day. Rest of the home medications have been resumed including her long-term and coagulation with Eliquis. The patient has seen Dr. Perdomo regarding was her chronic atrial fibrillation. The patient has a loop recorder in place. Her current other cardiac rhythm is sinus. The patient does not use home oxygen. She does not use any form of maintenance of her medications or inhalers. No cerebellar childhood asthma. She is a chronic smoker and she smokes 1 pack of cigarettes a day. Her primary care physician is out of [place]. She sees cardiology locally, Dr. Perdomo. 12/20/2020 on seeing the patient for a follow-up. The patient is slightly improved compared to yesterday. Less short of breath. Still bronchospastic and wheezy. Breath sounds are quite diminished in lung bases bilaterally. Limited tremulous and shaky as the patient is receiving steroids and bronchodilators. The patient is currently on Symbicort maintenance, DuoNeb about treatment [id number], IV Solu Medrol. She is having also increased cough compared to yesterday. No fever. No chills. No other new complaints otherwise for now. Her cardiac rhythm remains sinus. She has no angina. 12/21/2020, I'm seeing the patient for a follow-up. Clinically she is slowly improving. Cough is improved compared to yesterday. She is much less bronchospastic and wheezy compared to yesterday. A computed tomography scan of the chest was done and this was a noncontrast CAT scan and it showed no evidence of any significant emphysematous changes. Some limited groundglass nonspecific changes were seen bilaterally. No clear evidence of pneumonia. The patient was anyway covered with Levaquin 750 mg by mouth daily. She remains on IV Solu Medrol. She remains on DuoNeb nebulized treatments 4 times a day. She is on Symbicort as maintenance. She had cardiac rhythm remains sinus. She is having some issues with blood pressure elevation and she is also on a combination of hydrochlorothiazide, Cardizem and Norvasc. She is on a dose of 5 mg of Norvasc which I would suggest increased dose up to 10 mg for tighter blood pressure control. On 2020, the patient is feeling better. She is less short of breath. Nevertheless, overnight, she went into atrial fibrillation with rapid ventricular response. This occurred approximately 10 PM yesterday. The patient had a rate of 179 beats per minute. She was started on a Cardizem drip and within 3 hours she converted back into normal sinus rhythm. Cardiology saw the patient and they discontinued the DuoNeb nebulized treatments. They increased the Cardizem to 180 mg CD one tablet a day. The patient is currently off metoprolol. She is less bronchospastic and wheezy and she is on room air oxygen. No other issues otherwise for now. She remains on long-term anticoagulation with Eliquis. On 12/23/2020 patient seen in follow-up on [facility] care unit, she had an eye, her breathing is improving, lung sounds are positive for some basilar crackles, no wheezing, rare cough, no significant phlegm production, no fever or chills, no episodes of A. fib with RVR overnight, patient is in sinus mechanism with a controlled rate. Continues on Eliquis 5 mg twice daily, she is on oral Cardizem, her metoprolol has been discontinued, cardiology is following and managing patient's cardiac medications. He is on Symbicort, she is on nebulized treatments only on as-needed basis, patient was able to get up and walk down the [place], tolerated activity fairly well. No fever or chills, CT chest has been reviewed showing ED with mild chronic interstitial lung disease. The patient is stable, she continues to improve, no arrhythmias overnight, room air pulse ox is 94%. Objective - Vital Signs Vital signs: Vital Signs Temp 97.2 F L 12/23/20 04:00 Pulse 70 12/23/20 08:00 Resp 16 12/23/20 08:00 BP 133/70 12/23/20 08:00 Pulse Ox 94 L 12/23/20 08:00 Intake & Output 12/22/20 12/23/20 12/23/20 18:59 06:59 18:59 Intake Total 240 240 Output Total 300 300 Balance -60 -300 240 Weight 87 kg 87.5 kg Intake: Oral 240 240 Output: Urine 300 300 Other: Voiding Method Toilet Toilet Toilet # Voids 1 0 # Bowel Movements 1 1 - Exam GENERAL EXAM: Alert, pleasant, 70-year-old white female, on room air, comfortable in no apparent distress. HEAD: Normocephalic/atraumatic. EYES: Normal reaction of pupils, equal size. Conjunctiva pink, sclera white. NOSE: Clear with pink turbinates. THROAT: No erythema or exudates. NECK: No masses, no JVD, no thyroid enlargement, no adenopathy. CHEST: No chest wall deformity. Symmetrical expansion. LUNGS: Equal air entry with minimal crackles at bilateral bases, no wheezes CVS: Regular rate and rhythm, normal S1 and S2, no gallops, no murmurs, no rubs ABDOMEN: Soft, nontender. No hepatosplenomegaly, normal bowel sounds, no guardi ng or rigidity. EXTREMITIES: No clubbing, no edema, no cyanosis, 2+ pulses and upper and lower extremities. MUSCULOSKELETAL: Muscle strength and tone normal. SPINE: No scoliosis or deformity SKIN: No rashes CENTRAL NERVOUS SYSTEM: Alert and oriented -3. No focal deficits, tone is normal in all 4 extremities. PSYCHIATRIC: Alert and oriented -3. Appropriate affect. Intact judgment and insight. - Labs CBC & Chem 7: 12/19/20 06:34 12/19/20 06:34 Labs: Abnormal Lab Results - Last 24 Hours (Table) 12/22/20 12/22/20 12/23/20 Range/Units 16:43 20:17 06:00 POC Glucose (mg/dL) 129 H 140 H 163 H (75-99) mg/dL 12/23/20 Range/Units 11:44 POC Glucose (mg/dL) 145 H (75-99) mg/dL Assessment and Plan Plan: Assessment: #1. Acute COPD exacerbation with secondary shortness of breath , improvement is limited compared to yesterday. Breath sounds are quite diminished and the patient remains actively bronchospastic and wheezy. She remains on oxygen. There is computed tomography scan of the chest was reviewed and there is no evidence of any significant pneumonia or chronic lung disease.The patient is clinically the patient is clinically improving, less bronchospastic and wheezy. #2. Acute hypoxic respiratory failure secondary to above currently on 4 L to maintain saturation above 90%, the patient was weaned down to 2 L of Oxymizer nasal cannula #3. Paroxysmal atrial fibrillation with rapid ventricular response at the time of admission, currently on oral Cardizem and Eliquis for anticoagulation. Cardizem drip was discontinued, the patient is currently on oral Cardizem and the patient is also on anticoagulation with Eliquis. She remains in a normal sinus rhythm. He had another bout of atrial fibrillation overnight. The patient was taken off the DuoNeb nebulized treatments. She is only on Symbicort and systemic steroids for now. Cardiac rhythm went into normal sinus rhythm after 3 hours. She is currently on Cardizem CD 180 mg by mouth daily. She is also on long-term anticoagulation with Eliquis. #4. Acute hypoxic respiratory failure secondary to above #5. Coronary artery disease with previous in intervention and coronary stent and PCI in 2018 #6. Hyperlipidemia #7. Hypertension, currently on a combination of hydrochlorothiazide, oral Cardizem and Norvasc. Review of the computed tomography scan of the chest and discussed with the patient #8. history of depression Plan: Patient is stable from pulmonary perspective We'll transition the patient to oral prednisone No arrhythmias overnight, in sinus mechanism Rate is controlled, no fever or chills Stable for discharge home from pulmonary perspective Smoking cessation was advised Patient will go home on Anoro Ellipta 62.5-25 mcg 1 puff daily Complete 12 day prednisone taper Does not need anymore antibiotics to go home on Patient follow-up with Dr. Almeida in the office I performed a history & physical examination of the patient and discussed their management with my nurse practitioner, Wendy Mahajan. I reviewed the nurse practitioner's note and agree with the documented findings and plan of care. Lung sounds are positive for clear breath sounds throughout the lung maddox. The findings and the impression was discussed with the patient. I attest to the documentation by the nurse practitioner. Time with Patient: Less than 30
[2020-12-23] MEDS ORDERED: LOPERAMIDE 2 MG CAP PO PRN (12:51)
[2020-12-23 12:52] VITALS: BP 129/80; PULSE 79
--- NOTE | 2020-12-23 13:04 | P.PN ---
Subjective This is a pleasant 70-year-old female past medical history significant for paroxysmal atrial fibrillation (on Eliquis), coronary artery disease status post PCI to the ostial OM 2017, hypertension and dyslipidemia, loop recorder placed in Apr 2020. She follows in the office with Dr. Perdomo. We have been asked to see in consultation for atrial fibrillation with RVR. Patient was transferred from [facility] for atrial fibrillation with RVR. Patient states she was given a albuterol respiratory treatment and her heart began to race. EKG revealed atrial fibrillation with RVR. She was transferred to [facility] for cardiology evaluation. Patient initially presented to [facility] with complaints of shortness of breath and cough since , she states it is progressively getting worse. She had associated chills on Saturday. She denies fevers, orthopnea of PND. She states she can barely do her normal daily activities or walk around her room/to the bathroom without being short of breath. She has some atypical chest pain around her ribs when she coughs, this is non-radiating, non-exertional, no associated symptoms. She is a current every day smoker 1PPD, last smoked on Saturday. Patient was switched from metoprolol tartrate to Cardizem 120mg daily and was maintaining sinus mechanism. 12/23/20 Patient seen and examined at bedside, she states her breathing has improved significantly, no longer wheezing. She has been maintaining sinus mechanism, no recurrence of atrial fibrillation or arrhythmias overnight. She is currently maintained on Cardizem 180 mg daily, Eliquis 5 mg twice a day, amlodipine 5 mg daily, aspirin 81 mg daily, atorvastatin 40 mg nightly, hydrochlorothiazide 12.5 mg every 48 hours, losartan 50 mg nightly. PHYSICAL EXAMINATION Vital signs: reviewed CONSTITUTIONAL: No apparent distress. HEENT: Neck Supple. No JVD. CHEST EXAMINATION: Lungs are expiratory wheezing throughout to auscultation. Chest wall tenderness with cough and deep breathing HEART EXAMINATION: Regular rate and rhythm. S1, S2 heard. No murmurs, gallops or rub. ABDOMEN: Soft, nontender. Positive bowel sounds. EXTREMITIES: 2+ peripheral pulses, no lower extremity edema and no calf tenderness. NEUROLOGIC EXAMINATION: Patient is awake, alert and oriented x3. ASSESSMENT Atrial fibrillation with RVR- on Eliquis. Currently maintaining sinus mechanism. Chest pain, atypical, worse with coughing, acute coronary syndrome ruled out COPD exacerbation Coronary artery disease status post PCI 2018 Hypertension Dyslipidemia PLAN -We will continue to discontinue patient's metoprolol -Continue cardizem 180mg daily -Continue Eliquis 5 mg twice a day, amlodipine, atorvastatin, losartan -From cardiology perspective patient stable to be discharged home. -Patient to follow up with Dr. Perdomo as an outpatient. Nurse Practitioner note has been reviewed, I agree with a documented findings and plan of care. Patient was seen and examined. Objective - Vital Signs Vital signs: Vital Signs Temp 97.2 F L 12/23/20 04:00 Pulse 79 12/23/20 12:00 Resp 16 12/23/20 12:00 BP 129/80 12/23/20 12:00 Pulse Ox 95 12/23/20 12:00 Intake & Output 12/22/20 12/23/20 12/23/20 18:59 06:59 18:59 Intake Total 240 240 Output Total 300 300 Balance -60 -300 240 Weight 87 kg 87.5 kg Intake: Oral 240 240 Output: Urine 300 300 Other: Voiding Method Toilet Toilet Toilet # Voids 1 0 1 # Bowel Movements 1 1 1 - Labs CBC & Chem 7: 12/19/20 06:34 12/19/20 06:34 Labs: Abnormal Lab Results - Last 24 Hours (Table) 12/22/20 12/22/20 12/23/20 Range/Units 16:43 20:17 06:00 POC Glucose (mg/dL) 129 H 140 H 163 H (75-99) mg/dL 12/23/20 Range/Units 11:44 POC Glucose (mg/dL) 145 H (75-99) mg/dL
[2020-12-23 16:44] LABS: Glucose,Whole Blood 122 mg/dL (75-99)
--- NOTE | 2020-12-24 02:25 | P.DS ---
Providers Date of admission: 12/20/20 10:01 Attending physician: Neville Parsons MD Consults: 12/18/20 19:19 Consult Physician Routine Consulting Provider: Sarita Perdomo Consult Reason/Comments: COPD, A-fib Do you want consulting provider notified?: Yes Consult Physician Routine Consulting Provider: Stephanie Bryant Consult Reason/Comments: COPD Do you want consulting provider notified?: Yes 12/21/20 23:38 Consult Physician Routine Consulting Provider: Rommel Young Consult Reason/Comments: Afib-RVR Do you want consulting provider notified?: Yes, Notify in am Primary care physician: Dontrell Butler MD Hospital Course: Diagnoses: COPD with exacerbation Paroxysmal atrial fibrillation, on Eliquis. With RVR on admission Left thyroid nodule Acute hypoxemic respiratory failure Hyperlipidemia History of GERD History of coronary artery disease status post stent Depression with no suicidal ideation. Bereavement Hospital course: This is a pleasant 70 years old female with past medical history of atrial fibrillation on Eliquis, COPD, GERD, hypertension, hyperlipidemia, coronary artery disease status post stent Patient presents because of dyspnea and left-sided chest pain and coughing for 3 days. Patient was at [facility] where they found her to have A. fib with RVR in COPD exacerbation. Patient converted to sinus rhythm after started on Cardizem drip. Patient evaluated by pulmonary and cardiology team. She was continued on home dose of Eliquis and metoprolol was stopped and placed on Cardizem 180 mg daily and to her A. fib heart and heart rate were controlled. Blood pressure was better controlled with hydralazine 50 mg twice a day. Also she was evaluated by hard candy spinner and treated with steroids including Symbicort and Solu-Medrol 60 mg and short course of oral Levaquin. Patient showed interval improvement and on the day of discharge she was on room air, she does not need oxygen to go home with. Also she was discharged on tapered steroids but no need for antibiotics upon discharge On the day of discharge she denies chest pain or dyspnea. No abdominal pain. No vomiting. No change in urine or bowel habits. No fever. Also patient had left cataract nodule she was informed about her several times with recommendation shots she follow up with her PCP Dr. Jon and risks including but not limited to cancer are explained to her and she verbalized understanding and acceptance. Patient states that her PCP prescribed her thyroid scan already prior to this hospitalization but she needs to schedule an appointment as soon as possible as she states to me. Patient was cleared for discharge by cardiology and pulmonary team's. Problems and management plan were discussed with the patient and he verbalized understanding and acceptance Patient was found stable and can be discharged home in guarded prognosis however he needs follow-up as an outpatient. Patient was instructed to follow up with PCP Dr. Jon within one week and patient agrees to call and make her own appointment N.B. Also I called Dr. Jon twice today and left a message to call me back and still pending. We wanted to discuss the case with him including thyroid nodule and her hospitalization. Patient was instructed to follow up with Dr. Perdomo on 01/06 and she agrees and Dr. Almeida hard candy spinner in 1 week and she agrees to call and make her own appointments Physical exam Gen: patient is a AAOx3, no distress CVS: S1-S2, RRR, no murmur Lungs: B/L CTA, no wheezing Abdomen: soft, no distention, no tenderness, positive bowel sounds Extremity: no leg edema or induration Time spent more than 35 minutes Patient Condition at Discharge: Stable Plan - Discharge Summary Discharge Rx Participant: Yes New Discharge Prescriptions: New Umeclidinium Brm/Vilanterol Tr [Anoro Ellipta 62.5-25 Mcg INH] 1 puff INHALATION DAILY 30 Days #1 each predniSONE 0 mg PO DIRECTED 12 Days #30 tab Diltiazem Cd [Cardizem CD] 180 mg PO DAILY 30 Days #30 cap hydrALAZINE HCL [Apresoline] 50 mg PO BID #60 tab guaiFENesin-DM 100-10MG/5ML [Robitussin DM] 10 ml PO Q6HR PRN 2 Days #60 ml PRN Reason: Cough Continue Citalopram Hydrobromide [CeleXA] 30 mg PO HS Atorvastatin Calcium [Lipitor] 40 mg PO HS hydroCHLOROthiazide [Hydrodiuril] 12.5 mg PO Q48H Losartan Potassium 50 mg PO HS Famotidine 40 mg PO HS Aspirin 81 mg PO HS #0 Apixaban [Eliquis] 5 mg PO BID amLODIPine BESYLATE 5 mg PO HS Cholecalciferol [Vitamin D3 (25 Mcg = 1000 Iu)] 25 mcg PO HS Discontinued Metoprolol Tartrate [Lopressor] 25 mg PO BID Discharge Medication List Atorvastatin Calcium [Lipitor] 40 mg PO HS 12/29/17 [History] Citalopram Hydrobromide [CeleXA] 30 mg PO HS 12/29/17 [History] hydroCHLOROthiazide [Hydrodiuril] 12.5 mg PO Q48H 08/24/18 [History] Losartan Potassium 50 mg PO HS 08/25/18 [History] Famotidine 40 mg PO HS 04/17/20 [History] Aspirin 81 mg PO HS #0 04/18/20 [Rx] Apixaban [Eliquis] 5 mg PO BID 12/18/20 [History] Cholecalciferol [Vitamin D3 (25 Mcg = 1000 Iu)] 25 mcg PO HS 12/18/20 [History] amLODIPine BESYLATE 5 mg PO HS 12/18/20 [History] Diltiazem Cd [Cardizem CD] 180 mg PO DAILY 30 Days #30 cap 12/23/20 [Rx] Umeclidinium Brm/Vilanterol Tr [Anoro Ellipta 62.5-25 Mcg INH] 1 puff INHALATION DAILY 30 Days #1 each 12/23/20 [Rx] guaiFENesin-DM 100-10MG/5ML [Robitussin DM] 10 ml PO Q6HR PRN 2 Days #60 ml 12/23/20 [Rx] hydrALAZINE HCL [Apresoline] 50 mg PO BID #60 tab 12/23/20 [Rx] predniSONE 0 mg PO DIRECTED 12 Days #30 tab 12/23/20 [Rx] Follow up Appointment(s)/Referral(s): Sarita Perdomo MD [STAFF PHYSICIAN] - 01/06/21 10:15 am Dontrell Butler MD [Primary Care Provider] - 1-2 days [facility], [NON-STAFF] - Delicia Almeida MD [STAFF PHYSICIAN] - 1 Week Activity/Diet/Wound Care/Special Instructions: Heart healthy diet, low carbohydrate 1600 kcal per day Activity is restricted till you see your doctor Discharge Disposition: HOME WITH HOME HEALTH SERVICES
[2020-12-24] MEDS ORDERED: predniSONE 20 MG TAB PO SCH (09:00)
== END 2020-12-23 18:46 | disposition home health service (06) | DRG 190 ==
LOC: EC 18:39 → 3SCARD 19:18 → INTOOBSV 19:18 → 3SCARD 12-19 07:10 → OBSVTOIN 12-20 10:01
PROVIDERS: ADMIT Internal Medicine; ATTEND Internal Medicine
PROC: 3E0F7SF Introduction of Other Gas into Respiratory Tract, Via Natural or Artificial Opening (ICD-10-PCS; principal; 2020-12-20)
DX: J43.9 Emphysema, unspecified (principal); J96.01 Acute respiratory failure with hypoxia; J18.9 Pneumonia, unspecified organism; I31.3 Pericardial effusion (noninflammatory); I48.20 Chronic atrial fibrillation, unspecified; J84.9 Interstitial pulmonary disease, unspecified; J98.11 Atelectasis; Z20.822 Contact with and (suspected) exposure to COVID-19; I25.10 Atherosclerotic heart disease of native coronary artery without angina pectoris; I11.9 Hypertensive heart disease without heart failure; R07.89 Other chest pain; H26.9 Unspecified cataract; I08.1 Rheumatic disorders of both mitral and tricuspid valves; I48.0 Paroxysmal atrial fibrillation; K21.9 Gastro-esophageal reflux disease without esophagitis; E04.1 Nontoxic single thyroid nodule; I45.10 Unspecified right bundle-branch block; E78.5 Hyperlipidemia, unspecified; F03.90 Unspecified dementia, unspecified severity, without behavioral disturbance, psychotic disturbance, mood disturbance, and anxiety; F17.210 Nicotine dependence, cigarettes, uncomplicated; I25.2 Old myocardial infarction; Z91.011 Allergy to milk products; Z63.4 Disappearance and death of family member; Z79.01 Long term (current) use of anticoagulants; Z79.82 Long term (current) use of aspirin; Z79.899 Other long term (current) drug therapy; Z90.710 Acquired absence of both cervix and uterus; Z95.5 Presence of coronary angioplasty implant and graft; Z88.0 Allergy status to penicillin; Z87.442 Personal history of urinary calculi; Z91.041 Radiographic dye allergy status; Z87.19 Personal history of other diseases of the digestive system
CPT/HCPCS: 71045; 71250; 80053; 83880; 84439; 84443; 84484; 85025; 87635; 93005; 94640; 94760; 99285

== ENCOUNTER 2021-05-14 08:58 | Inpatient (IN) | payer MEDICARE, OTHER ==
[2021-05-14] MEDS ORDERED: ONDANSETRON 4 MG/2 ML VIAL IVP STA (09:01)
[2021-05-14] MEDS ORDERED: SODIUM CHLORIDE 0.9% 1,000 ML IV STA (09:01)
[2021-05-14] MEDS ORDERED: DILTIAZEM DRIP BOLUS FROM BAG 1 MG SOLN IV ONE (09:01)
--- NOTE | 2021-05-14 09:04 | ED ---
General Adult HPI - General Stated complaint: Chest pain Time Seen by Provider: 05/14/21 08:58 Source: patient, RN notes reviewed, old records reviewed - History of Present Illness Initial comments: This is a 71-year-old female who presents emergency Department stating at 6:00 this morning she started having chest pain on the left side of her chest. Patient states he became short of breath diaphoretic and nauseated. Patient denies any radiation of the pain. Patient states she has a history of atrial fibrillation and history of heart attack with stents. Patient denies any recent fever chills. Patient denies any cough. Patient denies any abdominal pain patient denies any vomiting or diarrhea. Patient states she did take her morning medications. Patient denies any swelling of her legs or calf tenderness. - Related Data Home Medications Medication Instructions Recorded Confirmed Atorvastatin Calcium [Lipitor] 40 mg PO HS 12/29/17 12/18/20 Citalopram Hydrobromide [CeleXA] 30 mg PO HS 12/29/17 12/18/20 hydroCHLOROthiazide [Hydrodiuril] 12.5 mg PO Q48H 08/24/18 12/18/20 Losartan Potassium 50 mg PO HS 08/25/18 12/18/20 Famotidine 40 mg PO HS 04/17/20 12/18/20 Apixaban [Eliquis] 5 mg PO BID 12/18/20 12/18/20 Cholecalciferol [Vitamin D3 (25 25 mcg PO HS 12/18/20 12/18/20 Mcg = 1000 Iu)] amLODIPine BESYLATE 5 mg PO HS 12/18/20 12/18/20 Previous Rx's Medication Instructions Recorded Aspirin 81 mg PO HS #0 04/18/20 Diltiazem Cd [Cardizem CD] 180 mg PO DAILY 30 Days #30 cap 12/23/20 Umeclidinium Brm/Vilanterol Tr 1 puff INHALATION DAILY 30 Days #1 12/23/20 [Anoro Ellipta 62.5-25 Mcg INH] each guaiFENesin-DM 100-10MG/5ML 10 ml PO Q6HR PRN 2 Days #60 ml 12/23/20 [Robitussin DM] hydrALAZINE HCL [Apresoline] 50 mg PO BID #60 tab 12/23/20 predniSONE 0 mg PO DIRECTED 12 Days #30 tab 12/23/20 Allergies Allergy/AdvReac Type Severity Reaction Status Date / Time Penicillins Allergy Unknown Verified 12/18/20 20:12 lactose AdvReac Mild Nausea & Verified 12/18/20 20:12 Vomiting & Diarrhea Review of Systems ROS Statement: Those systems with pertinent positive or pertinent negative responses have been documented in the HPI. ROS Other: All systems not noted in ROS Statement are negative. Past Medical History Past Medical History: Atrial Fibrillation, COPD, GERD/Reflux, Hyperlipidemia, Hypertension, Myocardial Infarction ([place]) Additional Past Medical History / Comment(s): History of kidney stones, history of chronic atrial fibrillation Last Myocardial Infarction Date:: 2017 History of Any Multi-Drug Resistant Organisms: None Reported Past Surgical History: Heart Catheterization With Stent, Hysterectomy Additional Past Surgical History / Comment(s): Colonoscopy/polypectomy,last stent 2019 Past Anesthesia/Blood Transfusion Reactions: No Reported Reaction Date of Last Stent Placement:: 2017 Past Psychological History: No Psychological Hx Reported Additional Psychological History / Comment(s): Pt states her spouse unexpectantly 5 months ago. She now resides alone. She is independent. She states d/t the loss of her spouse, she has had increased depression and her physician has increased her celexa. She denies any suicidal thoughts/plans. Smoking Status: Former smoker Past Alcohol Use History: None Reported Additional Past Alcohol Use History / Comment(s): Pt started smoking as a teen and is a ppd smoker. Past Drug Use History: None Reported - Past Family History Mother Family Medical History: No Reported History, CVA/TIA, Hypertension Additional Family Medical History / Comment(s): "Circulation problems" Brother(s) Family Medical History: Hypertension Father Family Medical History: No Reported History Additional Family Medical History / Comment(s): Pt's father young and she states she does not know his medical history. General Exam - General Exam Comments Initial Comments: GENERAL: Patient is well-developed and well-nourished. Patient is nontoxic and well- hydrated and is in mild distress. ENT: Neck is soft and supple. No significant lymphadenopathy is noted. Oropharynx is clear. Moist mucous membranes. Neck has full range of motion without eliciting any pain. EYES: The sclera were anicteric and conjunctiva were pink and moist. Extraocular movements were intact and pupils were equal round and reactive to light. Eyelids were unremarkable. PULMONARY: Unlabored respirations. Good breath sounds bilaterally. No audible rales rhonchi or wheezing was noted. CARDIOVASCULAR: Patient's heart rate is irregular and rate of about 160 ABDOMEN: Soft and nontender with normal bowel sounds. SKIN: Skin is clear with no lesions or rashes and otherwise unremarkable. NEUROLOGIC: Patient is alert and oriented x3. Cranial nerves II through XII are grossly intact. Motor and sensory are also intact. Normal speech, volume and content. Symmetrical smile. MUSCULOSKELETAL: Normal extremities with adequate strength and full range of motion. No lower extremity swelling or edema. No calf tenderness. LYMPHATICS: No significant lymphadenopathy is noted PSYCHIATRIC: Normal psychiatric evaluation. 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 Patient's chest x-ray shows no acute abnormality. Patient remains in normal sinus rhythm. I spoke with sound physician's and they agreed to accept the patient admitted the patient wrote admitting orders. I consult to cardiology - Lab Data Result diagrams: 05/14/21 09:14 05/14/21 09:14 Lab Results 05/14/21 05/14/21 05/14/21 Range/Units 09:14 09:14 09:14 WBC 9.6 (3.8-10.6) k/uL RBC 4.97 (3.80-5.40) m/uL Hgb 15.0 (11.4-16.0) gm/dL Hct 46.5 H (34.0-46.0) % MCV 93.5 (80.0-100.0) fL MCH 30.3 (25.0-35.0) pg MCHC 32.4 (31.0-37.0) g/dL RDW 12.7 (11.5-15.5) % Plt Count 141 L (150-450) k/uL MPV 9.6 Neutrophils % 71 % Lymphocytes % 19 % Monocytes % 5 % Eosinophils % 3 % Basophils % 1 % Neutrophils # 6.8 (1.3-7.7) k/uL Lymphocytes # 1.8 (1.0-4.8) k/uL Monocytes # 0.5 (0-1.0) k/uL Eosinophils # 0.3 (0-0.7) k/uL Basophils # 0.1 (0-0.2) k/uL PT 10.4 (9.0-12.0) sec INR 0.9 (<1.2) APTT 26.8 (22.0-30.0) sec Sodium 143 (137-145) mmol/L Potassium 3.9 (3.5-5.1) mmol/L Chloride 112 H (98-107) mmol/L Carbon Dioxide 24 (22-30) mmol/L Anion Gap 7 mmol/L BUN 28 H (7-17) mg/dL Creatinine 0.91 (0.52-1.04) mg/dL Est GFR (CKD-EPI)AfAm 73 (>60 ml/min/1.73 sqM) Est GFR (CKD-EPI)NonAf 63 (>60 ml/min/1.73 sqM) Glucose 154 H (74-99) mg/dL Calcium 8.9 (8.4-10.2) mg/dL Magnesium 1.9 (1.6-2.3) mg/dL Total Bilirubin 0.4 (0.2-1.3) mg/dL AST 24 (14-36) U/L ALT 19 (4-34) U/L Alkaline Phosphatase 88 (38-126) U/L Troponin I (0.000-0.034) ng/mL Total Protein 6.6 (6.3-8.2) g/dL Albumin 3.7 (3.5-5.0) g/dL 05/14/21 Range/Units 09:14 WBC (3.8-10.6) k/uL RBC (3.80-5.40) m/uL Hgb (11.4-16.0) gm/dL Hct (34.0-46.0) % MCV (80.0-100.0) fL MCH (25.0-35.0) pg MCHC (31.0-37.0) g/dL RDW (11.5-15.5) % Plt Count (150-450) k/uL MPV Neutrophils % % Lymphocytes % % Monocytes % % Eosinophils % % Basophils % % Neutrophils # (1.3-7.7) k/uL Lymphocytes # (1.0-4.8) k/uL Monocytes # (0-1.0) k/uL Eosinophils # (0-0.7) k/uL Basophils # (0-0.2) k/uL PT (9.0-12.0) sec INR (<1.2) APTT (22.0-30.0) sec Sodium (137-145) mmol/L Potassium (3.5-5.1) mmol/L Chloride (98-107) mmol/L Carbon Dioxide (22-30) mmol/L Anion Gap mmol/L BUN (7-17) mg/dL Creatinine (0.52-1.04) mg/dL Est GFR (CKD-EPI)AfAm (>60 ml/min/1.73 sqM) Est GFR (CKD-EPI)NonAf (>60 ml/min/1.73 sqM) Glucose (74-99) mg/dL Calcium (8.4-10.2) mg/dL Magnesium (1.6-2.3) mg/dL Total Bilirubin (0.2-1.3) mg/dL AST (14-36) U/L ALT (4-34) U/L Alkaline Phosphatase (38-126) U/L Troponin I <0.012 (0.000-0.034) ng/mL Total Protein (6.3-8.2) g/dL Albumin (3.5-5.0) g/dL Critical Care Time Critical Care Time: Yes Total Critical Care Time: 35 Disposition Clinical Impression: Atrial fibrillation with rapid ventricular response Disposition: ADMITTED IP TO THIS [facility] Referrals: Dontrell Butler MD [Primary Care Provider] - 1-2 days Time of Disposition: 09:56
[2021-05-14] MEDS ORDERED: DILTIAZEM 125 MG in SODIUM CHLORIDE 0.9% 100 ML IV SCH (09:15)
[2021-05-14 09:23] LABS: Basophils # (A) 0.1 k/uL (0-0.2); Basophils % (A) 1 %; Eosinophils # (A) 0.3 k/uL (0-0.7); Eosinophils % (A) 3 %; HCT 46.5 % (34.0-46.0); Lymphocytes # (A) 1.8 k/uL (1.0-4.8); Lymphocytes % (A) 19 %; MCH 30.3 pg (25.0-35.0); MCHC 32.4 g/dL (31.0-37.0); MCV 93.5 fL (80.0-100.0); Mean Platelet Volume 9.6; Monocytes # (A) 0.5 k/uL (0-1.0); Monocytes % (A) 5 %; Neutrophils # (A) 6.8 k/uL (1.3-7.7); Neutrophils % (A) 71 %; Platelet Count 141 k/uL (150-450); RBC 4.97 m/uL (3.80-5.40); RDW 12.7 % (11.5-15.5); WBC 9.6 k/uL (3.8-10.6)
[2021-05-14 09:31] LABS: Albumin 3.7 g/dL (3.5-5.0); Calcium 8.9 mg/dL (8.4-10.2); Magnesium 1.9 mg/dL (1.6-2.3); Potassium 3.9 mmol/L (3.5-5.1); Total Bilirubin 0.4 mg/dL (0.2-1.3); Total Protein 6.6 g/dL (6.3-8.2)
[2021-05-14 09:34] LABS: INR 0.9 (<1.2); Partial Thromboplastin Time 26.8 sec (22.0-30.0); Prothrombin Time 10.4 sec (9.0-12.0)
--- NOTE | 2021-05-14 09:35 | XR ---
EXAMINATION TYPE: XR chest 2V DATE OF EXAM: 05/14/2021 COMPARISON: 12/19/2020 HISTORY: Dysrhythmia TECHNIQUE: Frontal and lateral views of the chest are obtained. FINDINGS: The lungs are clear of consolidative, interstitial or masslike opacity. Pulmonary vasculature appears mildly cephalized. There is moderate to marked cardiomegaly. There is no pleural effusion or pneumothorax. The osseous structures are intact IMPRESSION: Moderate to marked cardiomegaly with mild pulmonary vascular congestion. No interval jenifer nge compared to previous.
[2021-05-14] MEDS ORDERED: SODIUM CHLORIDE 0.9% 1,000 ML IV ONE (09:57)
--- NOTE | 2021-05-14 11:38 | P.CRDCN ---
Past Medical History Past Medical History: Atrial Fibrillation, COPD, GERD/Reflux, Hyperlipidemia, Hypertension, Myocardial Infarction ([place]) Additional Past Medical History / Comment(s): History of kidney stones, history of chronic atrial fibrillation Last Myocardial Infarction Date:: 2017 History of Any Multi-Drug Resistant Organisms: None Reported Past Surgical History: Heart Catheterization With Stent, Hysterectomy Additional Past Surgical History / Comment(s): Colonoscopy/polypectomy,last stent 2019 Past Anesthesia/Blood Transfusion Reactions: No Reported Reaction Date of Last Stent Placement:: 2017 Past Psychological History: No Psychological Hx Reported Additional Psychological History / Comment(s): Pt states her spouse unexpectantly 5 months ago. She now resides alone. She is independent. She states d/t the loss of her spouse, she has had increased depression and her physician has increased her celexa. She denies any suicidal thoughts/plans. Smoking Status: Former smoker Past Alcohol Use History: None Reported Additional Past Alcohol Use History / Comment(s): Pt started smoking as a teen and is a ppd smoker. Past Drug Use History: None Reported - Past Family History Mother Family Medical History: No Reported History, CVA/TIA, Hypertension Additional Family Medical History / Comment(s): "Circulation problems" Brother(s) Family Medical History: Hypertension Father Family Medical History: No Reported History Additional Family Medical History / Comment(s): Pt's father young and she states she does not know his medical history. Medications and Allergies Home Medications Medication Instructions Recorded Confirmed Type Atorvastatin Calcium [Lipitor] 40 mg PO HS 12/29/17 05/14/21 History Citalopram Hydrobromide [CeleXA] 30 mg PO HS 12/29/17 05/14/21 History hydroCHLOROthiazide [Hydrodiuril] 12.5 mg PO Q48H 08/24/18 05/14/21 History Losartan Potassium 50 mg PO HS 08/25/18 05/14/21 History Famotidine 20 mg PO HS 04/17/20 05/14/21 History Apixaban [Eliquis] 5 mg PO BID 12/18/20 05/14/21 History Diltiazem Cd [Cardizem CD] 180 mg PO DAILY 30 Days #30 cap 12/23/20 05/14/21 Rx Umeclidinium Brm/Vilanterol Tr 1 puff INHALATION RT-DAILY 05/14/21 05/14/21 History [Anoro Ellipta 62.5-25 Mcg INH] Allergies Allergy/AdvReac Type Severity Reaction Status Date / Time iodine Allergy Severe Nausea & Verified 05/14/21 10:27 Vomiting Penicillins Allergy Severe Syncope Verified 05/14/21 10:27 lactose AdvReac Mild Nausea & Verified 05/14/21 10:27 Vomiting & Diarrhea albuterol AdvReac Afib Verified 05/14/21 10:27 Physical Exam Vitals: Vital Signs Temp Pulse Pulse Resp BP Pulse Ox 05/14/21 09:32 72 18 98 05/14/21 09:03 160 H 05/14/21 09:00 97.8 F 160 H 18 113/56 94 L Intake and Output 05/13/21 05/14/21 05/14/21 21:59 06:59 14:59 Other: Weight 83.915 kg Results 05/14/21 09:14 05/14/21 09:14 Cardiac Enzymes 05/14/21 05/14/21 Range/Units 09:14 09:14 AST 24 (14-36) U/L Troponin I <0.012 (0.000-0.034) ng/mL Coagulation 05/14/21 Range/Units 09:14 PT 10.4 (9.0-12.0) sec APTT 26.8 (22.0-30.0) sec CBC 05/14/21 Range/Units 09:14 WBC 9.6 (3.8-10.6) k/uL RBC 4.97 (3.80-5.40) m/uL Hgb 15.0 (11.4-16.0) gm/dL Hct 46.5 H (34.0-46.0) % Plt Count 141 L (150-450) k/uL Comprehensive Metabolic Panel 05/14/21 Range/Units 09:14 Sodium 143 (137-145) mmol/L Potassium 3.9 (3.5-5.1) mmol/L Chloride 112 H (98-107) mmol/L Carbon Dioxide 24 (22-30) mmol/L BUN 28 H (7-17) mg/dL Creatinine 0.91 (0.52-1.04) mg/dL Glucose 154 H (74-99) mg/dL Calcium 8.9 (8.4-10.2) mg/dL AST 24 (14-36) U/L ALT 19 (4-34) U/L Alkaline Phosphatase 88 (38-126) U/L Total Protein 6.6 (6.3-8.2) g/dL Albumin 3.7 (3.5-5.0) g/dL Current Medications Generic Name Dose Route Start Last Admin Trade Name Freq PRN Reason Stop Dose Admin Diltiazem HCl 125 mg/ Sodium 125 mls @ 5 mls/hr 05/14/21 09:15 05/14/21 09:19 Chloride IV 5 mg/hr .Q24H SAMUEL 5 mls/hr Administration 5 MG/HR Sodium Chloride 1,000 mls @ 75 mls/hr 05/14/21 09:57 05/14/21 10:19 Saline 0.9% IV 05/14/21 23:16 75 mls/hr .[id number] ONE Administration Intake and Output 05/13/21 05/14/21 05/14/21 21:59 06:59 14:59 Other: Weight 83.915 kg Patient Weight 05/15/21 06:59 Weight 83.915 kg 05/14/21 09:14 05/14/21 09:14
[2021-05-14] MEDS ORDERED: NALOXONE 0.4 MG/ML 1 ML VIAL IV PRN (15:03)
--- NOTE | 2021-05-14 15:12 | P.HPIM ---
History of Present Illness H&P Date: 05/14/21 Chief Complaint: a-fib 71-year-old female with hx of a-fib on AC, HTN, CAD s/p stenting, COPD who presents emergency Department because stating at 6:00 this morning she started having chest pain on the left side of her chest, shortness of breath, palpitations, diaphoresis and nausea. No vomiting. Pain lasted for about 1-2 hours. Patient denies any radiation of the pain. Patient denies any recent fever chills. Patient denies any cough. Patient denies any abdominal pain patient denies any vomiting or diarrhea. She is compliant with her meds. In the ER she was in a-fib with RVR with HR in the 150, was started on cardizem gtt and was admitted for further evaluation by cardiology. Labs and troponins were ok. Review of Systems Complete review of system was performed, negative except for what is stated in HPI Past Medical History Past Medical History: Atrial Fibrillation, COPD, GERD/Reflux, Hyperlipidemia, Hypertension, Myocardial Infarction ([place]) Additional Past Medical History / Comment(s): History of kidney stones, history of chronic atrial fibrillation Last Myocardial Infarction Date:: 2017 History of Any Multi-Drug Resistant Organisms: None Reported Past Surgical History: Heart Catheterization With Stent, Hysterectomy Additional Past Surgical History / Comment(s): Colonoscopy/polypectomy,last stent 2019 Past Anesthesia/Blood Transfusion Reactions: No Reported Reaction Date of Last Stent Placement:: 2018 Past Psychological History: No Psychological Hx Reported Additional Psychological History / Comment(s): Pt states her spouse unexpectantly 5 months ago. She now resides alone. She is independent. She states d/t the loss of her spouse, she has had increased depression and her physician has increased her celexa. She denies any suicidal thoughts/plans. Smoking Status: Former smoker Past Alcohol Use History: None Reported Additional Past Alcohol Use History / Comment(s): Pt started smoking as a teen and is a ppd smoker. Past Drug Use History: None Reported - Past Family History Mother Family Medical History: No Reported History, CVA/TIA, Hypertension Additional Family Medical History / Comment(s): "Circulation problems" Brother(s) Family Medical History: Hypertension Father Family Medical History: No Reported History Additional Family Medical History / Comment(s): Pt's father young and she states she does not know his medical history. Medications and Allergies Home Medications Medication Instructions Recorded Confirmed Type Atorvastatin Calcium [Lipitor] 40 mg PO HS 12/29/17 05/14/21 History Citalopram Hydrobromide [CeleXA] 30 mg PO HS 12/29/17 05/14/21 History hydroCHLOROthiazide [Hydrodiuril] 12.5 mg PO Q48H 08/24/18 05/14/21 History Losartan Potassium 50 mg PO HS 08/25/18 05/14/21 History Famotidine 20 mg PO HS 04/17/20 05/14/21 History Apixaban [Eliquis] 5 mg PO BID 12/18/20 05/14/21 History Diltiazem Cd [Cardizem CD] 180 mg PO DAILY 30 Days #30 cap 12/23/20 05/14/21 Rx Umeclidinium Brm/Vilanterol Tr 1 puff INHALATION RT-DAILY 05/14/21 05/14/21 History [Anoro Ellipta 62.5-25 Mcg INH] Allergies Allergy/AdvReac Type Severity Reaction Status Date / Time iodine Allergy Severe Nausea & Verified 05/14/21 10:27 Vomiting Penicillins Allergy Severe Syncope Verified 05/14/21 10:27 lactose AdvReac Mild Nausea & Verified 05/14/21 10:27 Vomiting & Diarrhea albuterol AdvReac Afib Verified 05/14/21 10:27 Physical Exam Vitals: Vital Signs Temp Pulse Pulse Resp BP Pulse Ox 05/14/21 11:53 98 F 64 18 130/56 95 05/14/21 09:32 72 18 98 05/14/21 09:03 160 H 05/14/21 09:00 97.8 F 160 H 18 113/56 94 L Intake and Output 05/13/21 05/14/21 05/14/21 21:59 06:59 14:59 Other: Weight 83.915 kg Constitutional: No acute distress, conversant, pleasant Eyes:Anicteric sclerae, moist conjunctiva, no lid-lag, PERRLA, ENMT: Oropharynx clear, no erythema, exudates Neck: Supple, FROM, no masses, or JVD, No carotid bruits, No thyromegaly Lungs: Clear to auscultation, Clear to percussion, Normal respiratory effort, no accessory muscle use Cardiovascular: Heart regular in rate and rhythm, No murmurs, gallops, or rubs, No peripheral edema Abdominal: Soft, Nontender, no guarding, rebound or rigidity, Normoactive bowel sounds, No hepatomegaly, No splenomegaly, No palpable mass Skin: Normal temperature, tone, texture, turgor, no induration, No subcutaneous nodules, No rash, lesions, No ulcers Extremities: No digital cyanosis, No clubbing, Pedal pulses intact and symmetrical, Radial pulses intact and symmetrical, No calf tenderness Psychiatric: Alert and oriented to person, place and time, appropriate affect, intact judgement Neuro: Muscles Strength 5/5 in all 4 extremities, Sensation to light touch grossly present throughout, Cranial nerves II-XII grossly intact, no focal sensory deficits Results CBC & Chem 7: 05/14/21 09:14 05/14/21 09:14 Labs: Abnormal Lab Results - Last 24 Hours (Table) 05/14/21 05/14/21 Range/Units 09:14 09:14 Hct 46.5 H (34.0-46.0) % Plt Count 141 L (150-450) k/uL Chloride 112 H (98-107) mmol/L BUN 28 H (7-17) mg/dL Glucose 154 H (74-99) mg/dL Assessment and Plan Plan: A-fib with RVR Cycle troponin Tele Currently in sinus, will d/c gtt and resume oral meds Evaluation by cardiology Chronic COPD, GERD/Reflux, Hyperlipidemia, Hypertension, CAD All stable resume meds DVT prophylaxis on eliquis for a-fib, will continue
[2021-05-14] MEDS: DILTIAZEM CD 180 MG CAP.ER.24H PO SCH (16:33)
[2021-05-14] MEDS: LOSARTAN 50 MG TAB PO SCH (21:11)
[2021-05-14] MEDS: APIXABAN 5 MG TAB PO SCH (21:11)
[2021-05-14] MEDS: FAMOTIDINE 20 MG TAB PO SCH (21:11)
[2021-05-14] MEDS: CITALOPRAM HYDROBROMIDE 10 MG TAB PO SCH (21:11)
[2021-05-14] MEDS: ATORVASTATIN 40 MG TAB PO SCH (21:11)
[2021-05-15] MEDS: DILTIAZEM CD 180 MG CAP.ER.24H PO SCH (08:47)
[2021-05-15] MEDS: APIXABAN 5 MG TAB PO SCH (08:47)
--- NOTE | 2021-05-15 11:25 | P.PN ---
Subjective Progress Note Date: 05/15/21 Principal diagnosis: Chest pain The patient is a pleasant 71-year-old female patient with CAD and prior stenting of the left circumflex as well as paroxysmal atrial fibrillation and hypertension and dyslipidemia and prior history of smoking presented to the hospital with a chest discomfort. When she presented she was in A. fib with RVR and subsequently started on Cardizem drip and converted to normal sinus mechanism. She was seen this morning beach she is chest pain-free. She is back in normal sinus mechanism beach she is currently on oral anticoagulation. The troponin came in to be slightly elevated and that could be related to acute coronary event but also could be related to A. fib with RVR. She stated that she underwent myocardial perfusion imaging stress test last year. We'll obtain her previous medical record. I'm going to obtain an echocardiogram as well. Monitor the patient overnight. DC oral anticoagulation and start the patient on IV heparin for now. Possible coronary angiogram in the next 24 hours. Objective - Vital Signs Vital signs: Vital Signs Temp 98.2 F 05/15/21 08:10 Pulse 57 L 05/15/21 08:10 Resp 18 05/15/21 08:10 BP 145/74 05/15/21 08:10 Pulse Ox 96 05/15/21 08:10 Intake & Output 05/14/21 05/15/21 05/15/21 18:59 06:59 18:59 Intake Total 540 Balance 540 Weight 83.915 kg 89 kg Intake: Oral 540 Other: Voiding Method Toilet # Voids 1 # Bowel Movements 0 - Constitutional General appearance: Present: no acute distress - Respiratory Respiratory: bilateral: CTA - Cardiovascular Rhythm: regular Heart sounds: normal: S1, S2 - Labs CBC & Chem 7: 05/14/21 09:14 05/14/21 09:14 Labs: Abnormal Lab Results - Last 24 Hours (Table) 05/14/21 05/14/21 Range/Units 15:59 20:30 Troponin I 0.036 H* 0.042 H* (0.000-0.034) ng/mL Assessment and Plan Assessment: Assessment #1 chest discomfort which has resolved #2 A. fib with RVR. The patient's back in sinus rhythm #3 known paroxysmal atrial fibrillation #4 known CAD with prior revascularization #5 multiple comorbid conditions Plan #1 DC oral anticoagulation and start the patient on heparin #2 obtain an echocardiogram was Doppler #3 increase the dose of hydrocortisone for better blood pressure control #4 monitor the patient for additional 24 hours #5 possible coronary angiogram
[2021-05-15] MEDS: FORMOTEROL FUMARATE 20 MCG/2 ML NEBU INHALATION SCH ×2 (11:38→20:29)
[2021-05-15] MEDS: IPRATROPIUM 0.5 MG/2.5 ML NEBU INHALATION SCH ×4 (11:39→20:29)
[2021-05-15] MEDS ORDERED: HEPARIN SODIUM 1,000 UN/ML (10ML VL) IV PRN (11:49)
[2021-05-15 12:27] LABS: Basophils % (A) 0 %; Eosinophils # (A) 0.2 k/uL (0-0.7); Eosinophils % (A) 2 %; HCT 46.1 % (34.0-46.0); HGB 14.6 gm/dL (11.4-16.0); Lymphocytes # (A) 1.8 k/uL (1.0-4.8); Lymphocytes % (A) 25 %; MCH 30.3 pg (25.0-35.0); MCHC 31.7 g/dL (31.0-37.0); MCV 95.4 fL (80.0-100.0); Mean Platelet Volume 9.8; Monocytes # (A) 0.4 k/uL (0-1.0); Monocytes % (A) 5 %; Neutrophils # (A) 4.8 k/uL (1.3-7.7); Neutrophils % (A) 66 %; Platelet Count 125 k/uL (150-450); RBC 4.83 m/uL (3.80-5.40); RDW 12.5 % (11.5-15.5); WBC 7.2 k/uL (3.8-10.6)
[2021-05-15 12:36] LABS: Prothrombin Time 11.2 sec (9.0-12.0)
[2021-05-15] MEDS: HEPARIN SOD,PORK IN 0.45% NACL 25,000 UNIT in 0.45% NACL 1 250ML.BAG IV SCH (12:45)
--- NOTE | 2021-05-15 13:36 | P.PN ---
Subjective Progress Note Date: 05/15/21 Hospital course: Patient is a pleasant 71-year-old female with a past medical history with CAD and previous stent placement, hypertension, hyperlipidemia, and atrial fibrillation on anticoagulation with Eliquis. She presented to the hospital on 05/14/21 with a chief complaint of chest pain. EKG showing A. fib RVR at 153 bpm. Troponins trended initially less than 0.012, 0.033, 0.036, and 0.042. TSH was 1.650. CBC and CMP showing no significant abnormalities with the exception of mild thrombocytopenia with platelet count of 141. Initially patient required Cardizem bolus followed by infusion she controlled ventricular rate, but is now maintained on oral antiarrhythmics and has converted to normal sinus rhythm. Patient was admitted under the services of consultation cardiology. Physical exam: Patient seen and fully evaluated at the bedside this morning. She reports being free from any chest pain or discomfort. She denies further having any dizziness, lightheadedness, palpitations, shortness of breath, or experiencing any numbness/tingling/weakness/swelling in her extremities. Troponins did reveal an upward trend, however appear to be flat and likely secondary to demand ischemia. Cardiology following and has stopped Eliquis and placed patient on anticoagulation via IV heparin infusion with plans for likely cardiac catheterization within the next 24 hours. Vital signs reviewed and stable. General: Nontoxic, no distress and appears stated age. Derm: Skin warm and dry, normal coloration for ethnicity. Head: Atraumatic, normocephalic and symmetric. Eyes: EOMs intact, no lid lag, and anicteric sclera Mouth: no lip lesions, mucus membranes moist Cardiovascular: regular rate and rhythm with normal S1S2, no murmur, positive posterior tibial pulses bilaterally, and cap refill < 2 seconds. Lungs: Respirations even, regular, and unlabored on room air. Lungs CTA bilaterally, no rhonchi, no rales, no wheezing, and no accessory muscle usage. Abdominal: soft, nontender to palpation, no guarding, no appreciable organomegaly Ext: ROM intact. No gross muscle atrophy, no edema, no contractures Neuro: Speech clear, face symmetrical and CN II-XII grossly intact with no noted focal neuro deficits Psych: Alert and oriented to person, place, time, and situation. Appropriate and pleasant affect. Assessment and Plan of Care: Atrial fibrillation with RVR Elevated troponin, likely secondary to demand ischemia resulting from RVR History of CAD with previous stent placement Hypertension Hyperlipidemia -Cardiology following, appreciate further recommendations. -Echocardiogram to be completed -Eliquis held and pt started on IV heparin peding tentative plans for possible cardiac catheterization within the next 24 hours. -Patient has converted to normal sinus rhythm. -Continue daily medication regimen with Cardizem 180 mg daily. -Monitor vital signs and continue daily medication regimen for hypertension with losartan and hydrochlorothiazide. -Continue daily medication regimen with atorvastatin 40 mg nightly for treatment of hyperlipidemia. -Cardiac diet, NPO at midnight CODE STATUS: =Full code DVT prophylaxis: Heparin Discussed with: Patient and RN Anticipated discharge date: Clinical course to determine Anticipated discharge place: Home A total of 39 minutes was spent on the care of this complex patient more than 50% of the time was spent in counseling and care coordination. Objective - Vital Signs Vital signs: Vital Signs Temp 98.0 F 05/15/21 04:00 Pulse 51 L 05/15/21 04:00 Resp 20 05/15/21 04:00 BP 162/64 05/15/21 04:00 Pulse Ox 98 05/15/21 04:00 Intake & Output 05/14/21 05/15/21 05/15/21 18:59 06:59 18:59 Intake Total 540 Balance 540 Weight 83.915 kg 89 kg Intake: Oral 540 Other: Voiding Method Toilet # Voids 1 - Labs CBC & Chem 7: 05/15/21 12:19 05/14/21 09:14 Labs: Abnormal Lab Results - Last 24 Hours (Table) 05/14/21 05/14/21 05/14/21 Range/Units 09:14 15:59 20:30 Chloride 112 H (98-107) mmol/L BUN 28 H (7-17) mg/dL Glucose 154 H (74-99) mg/dL Troponin I 0.036 H* 0.042 H* (0.000-0.034) ng/mL
[2021-05-15] MEDS: LOSARTAN 50 MG TAB PO SCH (21:12)
[2021-05-15] MEDS: FAMOTIDINE 20 MG TAB PO SCH (21:12)
[2021-05-15] MEDS: ATORVASTATIN 40 MG TAB PO SCH (21:12)
[2021-05-15] MEDS: CITALOPRAM HYDROBROMIDE 10 MG TAB PO SCH (22:39)
[2021-05-16] MEDS: FORMOTEROL FUMARATE 20 MCG/2 ML NEBU INHALATION SCH ×2 (07:13→19:24)
[2021-05-16] MEDS: IPRATROPIUM 0.5 MG/2.5 ML NEBU INHALATION SCH ×4 (07:13→19:24)
[2021-05-16 08:13] LABS: Basophils % (A) 1 %; Eosinophils # (A) 0.2 k/uL (0-0.7); Eosinophils % (A) 3 %; HCT 43.7 % (34.0-46.0); HGB 14.5 gm/dL (11.4-16.0); Lymphocytes # (A) 2.1 k/uL (1.0-4.8); Lymphocytes % (A) 26 %; MCH 30.9 pg (25.0-35.0); MCHC 33.1 g/dL (31.0-37.0); MCV 93.6 fL (80.0-100.0); Mean Platelet Volume 9.6; Monocytes # (A) 0.5 k/uL (0-1.0); Monocytes % (A) 6 %; Neutrophils # (A) 5.1 k/uL (1.3-7.7); Neutrophils % (A) 64 %; Platelet Count 129 k/uL (150-450); RBC 4.67 m/uL (3.80-5.40); RDW 12.5 % (11.5-15.5)
[2021-05-16 08:22] LABS: Prothrombin Time 10.9 sec (9.0-12.0)
[2021-05-16] MEDS: DILTIAZEM CD 180 MG CAP.ER.24H PO SCH (08:54)
[2021-05-16] MEDS: HEPARIN SOD,PORK IN 0.45% NACL 25,000 UNIT in 0.45% NACL 1 250ML.BAG IV SCH (08:55)
[2021-05-16] MEDS ORDERED: hydroCHLOROthiazide 12.5 MG CAP PO SCH (09:00)
[2021-05-16] MEDS ORDERED: hydroCHLOROthiazide 25 MG TAB PO SCH (09:00)
[2021-05-16 11:26] LABS: Glucose,Whole Blood 95 mg/dL (75-99)
[2021-05-16] MEDS: ISOSORBIDE MONONITRATE ER 30 MG TAB.ER.24H PO SCH (15:03)
--- NOTE | 2021-05-16 15:26 | P.PN ---
Subjective This is a pleasant 70-year-old female past medical history significant for paroxysmal atrial fibrillation (on Eliquis), coronary artery disease status post PCI to the ostial OM 2017, hypertension and dyslipidemia, loop recorder placed in Apr 2020. She follows in the office with Dr. Perdomo. We have been asked to see in consultation for atrial fibrillation with RVR. Patient seen and examined at bedside, no further chest pain or shortness of breath. She has been maintaining sinus mechanism, no recurrence of atrial fibrillation or arrhythmias overnight. She is currently maintained on IV heparin, Cardizem 180 mg daily, atorvastatin 40 mg nightly, hydrochlorothiazide 25 mg daily, losartan 50 mg nightly. Her blood pressure continues to be elevated with 162/92 PHYSICAL EXAMINATION Vital signs: reviewed CONSTITUTIONAL: No apparent distress. HEENT: Neck Supple. No JVD. CHEST EXAMINATION: Lungs are expiratory wheezing throughout to auscultation. Chest wall tenderness with cough and deep breathing HEART EXAMINATION: Regular rate and rhythm. S1, S2 heard. No murmurs, gallops or rub. ABDOMEN: Soft, nontender. Positive bowel sounds. EXTREMITIES: 2+ peripheral pulses, no lower extremity edema and no calf tenderness. NEUROLOGIC EXAMINATION: Patient is awake, alert and oriented x3. ASSESSMENT Atrial fibrillation with RVR- on Eliquis outpatient. Currently maintaining sinus mechanism. Elevated troponin and chest pain, appears to be related to atrial fibrillation with rapid ventricular response COPD exacerbation Coronary artery disease status post PCI 2017 Hypertension Dyslipidemia PLAN -Add Imdur -Monitor BP -Elevated troponin and chest pain, appears to be related to atrial fibrillation with rapid ventricular response, we will continue IV heparin for additional 24 hours, likely transition to Eliquis tomorrow. -Continue cardizem 180mg daily -Continue atorvastatin, losartan -Further recommendations based on clinical course -Patient to follow up with Dr. Perdomo as an outpatient. Nurse Practitioner note has been reviewed, I agree with a documented findings and plan of care. Patient was seen and examined. Objective - Vital Signs Vital signs: Vital Signs Temp 98.2 F 05/16/21 12:15 Pulse 57 L 05/16/21 12:15 Resp 18 05/16/21 12:15 BP 162/92 05/16/21 12:15 Pulse Ox 97 05/16/21 12:15 Intake & Output 05/15/21 05/16/21 05/16/21 18:59 06:59 18:59 Intake Total 118 64 279.28 Balance 118 64 279.28 Intake: Intake, IV Titration 64 159.28 Amount Heparin Sod,Pork in 0.45% 64 159.28 NaCl 25,000 unit In 0.45 % NaCl 1 250ml.bag @ 11. 2359 UNITS/KG/HR 10 mls/ hr IV .Q24H [facility] Rx#: [id number] Oral 118 120 Other: Voiding Method Toilet # Voids 2 3 # Bowel Movements 0 0 - Labs CBC & Chem 7: 05/16/21 07:55 05/14/21 09:14 Labs: Abnormal Lab Results - Last 24 Hours (Table) 05/15/21 05/16/21 05/16/21 Range/Units 17:58 01:07 07:55 Plt Count 129 L (150-450) k/uL APTT 37.7 H 48.7 H (22.0-30.0) sec
--- NOTE | 2021-05-16 18:36 | P.PN ---
Subjective Progress Note Date: 05/16/21 Hospital course: Patient is a pleasant 71-year-old female with a past medical history with CAD and previous stent placement, hypertension, hyperlipidemia, and atrial fibrillation on anticoagulation with Eliquis. She presented to the hospital on 05/14/21 with a chief complaint of chest pain. EKG showing A. fib RVR at 153 bpm. Troponins trended initially less than 0.012, 0.033, 0.036, and 0.042. TSH was 1.650. CBC and CMP showing no significant abnormalities with the exception of mild thrombocytopenia with platelet count of 141. Initially patient required Cardizem bolus followed by infusion she controlled ventricular rate, but is now maintained on oral antiarrhythmics and has converted to normal sinus rhythm. Patient was admitted under the services of consultation cardiology. Physical exam: Patient seen and fully evaluated at the bedside this morning. She reports that she continues to be free from any chest pain or discomfort. She did report an episode overnight in which she felt a heaviness on her chest but states it was nothing like she felt prior to coming to the hospital. Patient continues to deny having any dizziness, lightheadedness, headache, palpitations, shortness of breath, or experiencing any numbness/tingling/weakness in her extremities. Vital signs reviewed and stable. General: Nontoxic, no distress and appears stated age. Derm: Skin warm and dry, normal coloration for ethnicity. Head: Atraumatic, normocephalic and symmetric. Eyes: EOMs intact, no lid lag, and anicteric sclera Mouth: no lip lesions, mucus membranes moist Cardiovascular: regular rate and rhythm with normal S1S2, no murmur, positive posterior tibial pulses bilaterally, and cap refill < 2 seconds. Lungs: Respirations even, regular, and unlabored on room air. Lungs CTA bilaterally, no rhonchi, no rales, no wheezing, and no accessory muscle usage. Abdominal: soft, nontender to palpation, no guarding, no appreciable organomegaly Ext: ROM intact. No gross muscle atrophy, no edema, no contractures Neuro: Speech clear, face symmetrical and CN II-XII grossly intact with no noted focal neuro deficits Psych: Alert and oriented to person, place, time, and situation. Appropriate and pleasant affect. Assessment and Plan of Care: Atrial fibrillation with RVR Elevated troponin, likely secondary to demand ischemia resulting from RVR History of CAD with previous stent placement Hypertension Hyperlipidemia -Cardiology following, appreciate further recommendations. -Echocardiogram has been completed and awaiting report. -Eliquis held and pt started on IV heparin peding further evaluation by cardiology, cardiology recommending continued IV heparin for an additional 24 hours and then transitioning back over to Eliquis -Patient has converted to normal sinus rhythm. -Continue daily medication regimen with Cardizem 180 mg daily. -Monitor vital signs and continue daily medication regimen for hypertension with losartan and hydrochlorothiazide. -Continue daily medication regimen with atorvastatin 40 mg nightly for treatment of hyperlipidemia. -Cardiac diet CODE STATUS: Full code DVT prophylaxis: Heparin Discussed with: Patient and RN Anticipated discharge date: Clinical course to determine Anticipated discharge place: Home A total of 39 minutes was spent on the care of this complex patient more than 50% of the time was spent in counseling and care coordination. Objective - Vital Signs Vital signs: Vital Signs Temp 98.1 F 05/16/21 04:00 Pulse 63 05/16/21 04:00 Resp 17 05/16/21 04:00 BP 160/67 05/16/21 04:00 Pulse Ox 96 05/16/21 07:12 Intake & Output 05/15/21 05/16/21 05/16/21 18:59 06:59 18:59 Intake Total 118 64 Balance 118 64 Intake: Intake, IV Titration 64 Amount Heparin Sod,Pork in 0.45% 64 NaCl 25,000 unit In 0.45 % NaCl 1 250ml.bag @ 11. 2359 UNITS/KG/HR 10 mls/ hr IV .Q24H [facility] Rx#: [id number] Oral 118 Other: Voiding Method Toilet # Voids 2 3 # Bowel Movements 0 - Labs CBC & Chem 7: 05/16/21 07:55 05/14/21 09:14 Labs: Abnormal Lab Results - Last 24 Hours (Table) 05/15/21 05/15/21 05/16/21 Range/Units 12:19 17:58 01:07 Hct 46.1 H (34.0-46.0) % Plt Count 125 L (150-450) k/uL APTT 37.7 H 48.7 H (22.0-30.0) sec
[2021-05-16] MEDS: ATORVASTATIN 40 MG TAB PO SCH (20:16)
[2021-05-16] MEDS: LOSARTAN 50 MG TAB PO SCH (20:16)
[2021-05-16] MEDS: FAMOTIDINE 20 MG TAB PO SCH (20:16)
[2021-05-16] MEDS: CITALOPRAM HYDROBROMIDE 10 MG TAB PO SCH (20:16)
[2021-05-16] MEDS ORDERED: NICOTINE 14MG/24HR PATCH TRANSDERM STA (20:26)
[2021-05-17] MEDS: HEPARIN SOD,PORK IN 0.45% NACL 25,000 UNIT in 0.45% NACL 1 250ML.BAG IV SCH (03:35)
[2021-05-17] MEDS: IPRATROPIUM 0.5 MG/2.5 ML NEBU INHALATION SCH ×2 (07:28→11:10)
[2021-05-17] MEDS: FORMOTEROL FUMARATE 20 MCG/2 ML NEBU INHALATION SCH (07:28)
[2021-05-17] MEDS ORDERED: hydroCHLOROthiazide 25 MG TAB PO SCH (09:00)
[2021-05-17] MEDS: DILTIAZEM CD 180 MG CAP.ER.24H PO SCH (09:33)
[2021-05-17] MEDS: ISOSORBIDE MONONITRATE ER 30 MG TAB.ER.24H PO SCH (09:35)
[2021-05-17 09:37] LABS: Calcium 8.9 mg/dL (8.4-10.2)
--- NOTE | 2021-05-17 11:04 | ECHOF ---
Referral Reason:[facility] MEASUREMENTS -------- HEIGHT: 154.9 cm WEIGHT: 88.9 kg BP: IVSd: 1.1 cm (0.6 - 1.1) LVIDd: 4.5 cm (3.9 - 5.3) LVPWd: 1.2 cm (0.6 - 1.1) EDV(Teich): 92 ml IVSs: 1.7 cm LVIDs: 2.3 cm LVPWs: 1.4 cm %IVS Thck: 51 % ESV(Teich): 18 ml EF(Teich): 80 % %FS: 49 % SV(Teich): 74 ml RVIDd: 2.5 cm (< 3.3) IVC: 17.66 mm LALs A4C: 5.4 cm LAAs A4C: 15.7 cm LAESV A-L A4C: 39 ml LAESV MOD A4C: 37 ml LALs A2C: 4.9 cm LAAs A2C: 12.1 cm LAESV A-L A2C: 25 ml LAESV MOD A2C: 23 ml LAESV(A-L): 33 ml LAESV Index (A-L): 17.38 ml/m Ao Diam: 3.3 cm (2.0 - 3.7) LA Diam: 3.6 cm (2.7 - 3.8) AV Cusp: 1.8 cm (1.5 - 2.6) MV E [place]: 0.93 m/s MV DecT: 206 ms MV Dec [place]: 4.5 m/s MV A [place]: 0.77 m/s MV E/A Ratio: 1.21 MV PHT: 60 ms MR Vmax: 1.08 m/s MR maxP.64 mmHg AV Vmax: 1.13 m/s AV maxP.09 mmHg TR Vmax: 2.47 m/s TR maxP.32 mmHg RAP: 5.00 mmHg RVSP: 29.32 mmHg FINDINGS -------- This was a technically good study. The left ventricular size is normal. Left ventricular wall thickness is normal. Overall left vent ricular systolic function is normal with, an EF between 55 - 60 %. The diastolic filling pattern is normal for the age of the patient 11.86. The right ventricle is normal in size. The left atrial size is normal. Normal LA size by volume 22+/-6 ml/m2. The right atrial size is normal. The aortic valve is trileaflet and appears structurally normal. The mitral valve is normal. There is trace mitral regurgitation. The tricuspid valve appears structurally normal. Trace tricuspid regurgitation present. Right fermín tricular systolic pressure is normal at < 35 mmHg. There is no pulmonic regurgitation present. The aortic root size is normal. Normal inferior vena cava with normal inspiratory collapse consistent with estimated right atrial pre ssure of 5 mmHg. There is no pericardial effusion. CONCLUSIONS -------- 1. The left ventricular size is normal. 2. Left ventricular wall thickness is normal. 3. Overall left ventricular systolic function is normal with, an EF between 55 - 60 %. 4. The diastolic filling pattern is normal for the age of the patient 11.86 5. There is trace mitral regurgitation. 6. Trace tricuspid regurgitation present. 7. There is no pericardial effusion. OFFICE EMPLOYEE: Jen Powell RDCS
[2021-05-17] MEDS ORDERED: APIXABAN 5 MG TAB PO SCH (11:15)
--- NOTE | 2021-05-17 11:43 | P.DS ---
Providers Date of admission: 05/14/21 09:58 Expected date of discharge: 05/17/21 Attending physician: iWlmer Huddleston MD Consults: 05/14/21 09:57 Consult Physician Urgent Consulting Provider: [facility] Consult Reason/Comments: A. fib with rapid ventricular response Do you want consulting provider notified?: Yes Primary care physician: Dontrell Butler MD Hospital Course: Discharge Diagnosis: Atrial fibrillation with RVR Elevated troponin, likely secondary to demand ischemia resulting from RVR History of CAD with previous stent placement Hypertension Hyperlipidemia Hospital Course: Patient is a pleasant 71-year-old female with a past medical history with CAD and previous stent placement, hypertension, hyperlipidemia, and atrial fibrillation on anticoagulation with Eliquis. She presented to the hospital on 05/14/21 with a chief complaint of chest pain. EKG showing A. fib RVR at 153 bpm. Troponins trended initially less than 0.012, 0.033, 0.036, and 0.042. TSH was 1.650. CBC and CMP showing no significant abnormalities with the exception of mild thrombocytopenia with platelet count of 141. Initially patient required Cardizem bolus followed by infusion she controlled ventricular rate, but is now maintained on oral antiarrhythmics and has converted to normal sinus rhythm. Patient was admitted under our services of consultation cardiology. She was placed on IV heparin and monitored closely. Atrial fibrillation resolved and patient converted back into normal sinus rhythm. Echocardiogram completed revealing a normal EF between 55 and 60% with no significant valvular abnormalities. Patient remained in normal sinus rhythm and free from any c ardiac complaints. IV heparin discontinued and patient resumed oral anticoagulation with Eliquis and oral Cardizem 180 mg daily. Medication changes were made including Hydrochlorothiazide increased to 25 mg daily and patient started on Imdur 30 mg daily. Patient is medically stable at this time and cardiology recommending patient follow-up outpatient in their office. Prescription sent for hydrochlorothiazide and Imdur. Patient educated on discharge instructions and plan of care. Order placed for CMP to be completed in 3 days with results to be sent to PCP for follow-up. Patient medically stable for discharge and to follow up with PCP and cardiology. Physical exam: Patient seen and fully evaluated at the bedside this morning. She reports that she continues to be free from any chest pain or discomfort and continues to deny having any dizziness, lightheadedness, headache, palpitations, shortness of breath, or experiencing any numbness/tingling/weakness in her extremities. Vital signs reviewed and stable. General: Nontoxic, no distress and appears stated age. Derm: Skin warm and dry, normal coloration for ethnicity. Head: Atraumatic, normocephalic and symmetric. Eyes: EOMs intact, no lid lag, and anicteric sclera Mouth: no lip lesions, mucus membranes moist Cardiovascular: regular rate and rhythm with normal S1S2, no murmur, positive posterior tibial pulses bilaterally, and cap refill < 2 seconds. Lungs: Respirations even, regular, and unlabored on room air. Lungs CTA bilaterally, no rhonchi, no rales, no wheezing, and no accessory muscle usage. Abdominal: soft, nontender to palpation, no guarding, no appreciable organomegaly Ext: ROM intact. No gross muscle atrophy, no edema, no contractures Neuro: Speech clear, face symmetrical and CN II-XII grossly intact with no noted focal neuro deficits Psych: Alert and oriented to person, place, time, and situation. Appropriate and pleasant affect. A total of 42 minutes of time were spent preparing this complex discharge summary. I reviewed the documentation as provided by the ALEA above, who is the original author of this note. I agree with the documented assessment and plan, with the following changes: None Patient Condition at Discharge: Stable Plan - Discharge Summary Discharge Rx Participant: No New Discharge Prescriptions: New hydroCHLOROthiazide [Hydrodiuril] 25 mg PO DAILY 30 Days #30 tab Isosorbide Mononitrate ER [Imdur] 30 mg PO DAILY 30 Days #30 tablet Continue Citalopram Hydrobromide [CeleXA] 30 mg PO HS Atorvastatin Calcium [Lipitor] 40 mg PO HS Losartan Potassium 50 mg PO HS Famotidine 20 mg PO HS Apixaban [Eliquis] 5 mg PO BID Umeclidinium Brm/Vilanterol Tr [Anoro Ellipta 62.5-25 Mcg INH] 1 puff INHALATION RT-DAILY Diltiazem Cd [Cardizem CD] 180 mg PO DAILY 30 Days #30 cap Discontinued hydroCHLOROthiazide [Hydrodiuril] 12.5 mg PO Q48H Discharge Medication List Atorvastatin Calcium [Lipitor] 40 mg PO HS 12/29/17 [History] Citalopram Hydrobromide [CeleXA] 30 mg PO HS 12/29/17 [History] Losartan Potassium 50 mg PO HS 08/25/18 [History] Famotidine 20 mg PO HS 04/17/20 [History] Apixaban [Eliquis] 5 mg PO BID 12/18/20 [History] Diltiazem Cd [Cardizem CD] 180 mg PO DAILY 30 Days #30 cap 12/23/20 [Rx] Umeclidinium Brm/Vilanterol Tr [Anoro Ellipta 62.5-25 Mcg INH] 1 puff INHALATION RT-DAILY 05/14/21 [History] Isosorbide Mononitrate ER [Imdur] 30 mg PO DAILY 30 Days #30 tablet 05/17/21 [Rx] hydroCHLOROthiazide [Hydrodiuril] 25 mg PO DAILY 30 Days #30 tab 05/17/21 [Rx] Follow up Appointment(s)/Referral(s): Natalio Avalos MD [STAFF PHYSICIAN] - 1 Week Dontrell Butler MD [Primary Care Provider] - 1-2 days (call office when open to make follow up appointment) Ambulatory/Diagnostic Orders: Comprehensive Metabolic Panel [LAB.AMB] Time Frame: 3 Days, Location: None Selected Patient Instructions/Handouts: A-fib (Atrial Fibrillation) (DC), Heart Healthy Diet (DC) Activity/Diet/Wound Care/Special Instructions: Activity: As tolerated. Take breaks as needed. Diet: Heart healthy and carb consistent diet. Avoid salts, or foods with hidden salts such as canned or boxed foods and frozen dinners. Extra salt makes your heart work harder and traps the fluid in your body for longer. Special Instructions: Take all of your medications as directed and remember to keep all of your doctor's appointments and follow-up as needed. Thank you for allowing us to participate in your care, it was truly a pleasure having you for our patient!!! Discharge Disposition: HOME SELF-CARE
[2021-05-17 11:45] VITALS: BP 139/73; RESP 16; TEMP 98.2
[2021-05-17 11:47] VITALS: PULSE 55
--- NOTE | 2021-05-17 12:58 | P.PN ---
Subjective This is a pleasant 70-year-old female past medical history significant for paroxysmal atrial fibrillation (on Eliquis), coronary artery disease status post PCI to the ostial OM 2017, hypertension and dyslipidemia, loop recorder placed in Apr 2020. She follows in the office with Dr. Perdomo. We have been asked to see in consultation for atrial fibrillation with RVR. Patient seen and examined at bedside, no further chest pain or shortness of breath. She has no further symptoms and feeling well. She has been maintaining sinus mechanism, no recurrence of atrial fibrillation or arrhythmias overnight. She is currently maintained on IV heparin, Cardizem 180 mg daily, atorvastatin 40 mg nightly, hydrochlorothiazide 25 mg daily, losartan 50 mg nightly. Her blood pressures have improved. Labs, sodium 136, potassium 4.0, BUN 26, serum creatinine 0.9 PHYSICAL EXAMINATION Vital signs: Blood pressure 139/73, heart rate 55, afebrile, oxygen saturations 96% on room air CONSTITUTIONAL: No apparent distress. HEENT: Neck Supple. No JVD. CHEST EXAMINATION: Lungs are expiratory wheezing throughout to auscultation. Chest wall tenderness with cough and deep breathing HEART EXAMINATION: Regular rate and rhythm. S1, S2 heard. No murmurs, gallops or rub. ABDOMEN: Soft, nontender. Positive bowel sounds. EXTREMITIES: 2+ peripheral pulses, no lower extremity edema and no calf tenderness. NEUROLOGIC EXAMINATION: Patient is awake, alert and oriented x3. ASSESSMENT Atrial fibrillation with RVR- on Eliquis outpatient. Currently maintaining sinus mechanism. Elevated troponin and chest pain, appears to be related to atrial fibrillation with rapid ventricular response COPD exacerbation Coronary artery disease status post PCI 2017 Hypertension Dyslipidemia PLAN -Continue Imdur -Stop IV heparin, transition back to Eliquis -Continue cardizem 180mg daily, and hydrochlorothiazide 25 mg daily -Continue atorvastatin, losartan -From cardiology perspective, patient stable for discharge home. -Patient to follow up with Dr. Perdomo as an outpatient. Nurse Practitioner note has been reviewed, I agree with a documented findings and plan of care. Patient was seen and examined. Objective - Vital Signs Vital signs: Vital Signs Temp 98.2 F 05/17/21 11:43 Pulse 55 L 05/17/21 11:43 Resp 16 05/17/21 11:43 BP 139/73 05/17/21 11:43 Pulse Ox 96 05/17/21 11:43 Intake & Output 05/16/21 05/17/21 05/17/21 18:59 06:59 18:59 Intake Total 279.28 215.973 240 Balance 279.28 215.973 240 Intake: Intake, IV Titration 159.28 215.973 Amount Heparin Sod,Pork in 0.45% 159.28 215.973 NaCl 25,000 unit In 0.45 % NaCl 1 250ml.bag @ 11. 2359 UNITS/KG/HR 10 mls/ hr IV .Q24H [facility] Rx#: [id number] Oral 120 240 Other: Voiding Method Toilet # Voids 1 # Bowel Movements 0 - Labs CBC & Chem 7: 05/16/21 07:55 05/17/21 07:54 Labs: Abnormal Lab Results - Last 24 Hours (Table) 05/17/21 05/17/21 Range/Units 01:36 07:54 APTT 46.2 H (22.0-30.0) sec Sodium 136 L (137-145) mmol/L BUN 26 H (7-17) mg/dL Glucose 100 H (74-99) mg/dL
== END 2021-05-17 14:38 | disposition home or self-care (01) | DRG 309 ==
LOC: EC 08:58 → 3SCARD 09:58
PROVIDERS: ADMIT Internal Medicine; ATTEND Internal Medicine
DX: I48.0 Paroxysmal atrial fibrillation (principal); I24.8 Other forms of acute ischemic heart disease; J44.1 Chronic obstructive pulmonary disease with (acute) exacerbation; D69.6 Thrombocytopenia, unspecified; I25.10 Atherosclerotic heart disease of native coronary artery without angina pectoris; K21.9 Gastro-esophageal reflux disease without esophagitis; E78.5 Hyperlipidemia, unspecified; I10 Essential (primary) hypertension; I08.1 Rheumatic disorders of both mitral and tricuspid valves; F32.A Depression, unspecified; I25.2 Old myocardial infarction; Z79.01 Long term (current) use of anticoagulants; Z79.82 Long term (current) use of aspirin; Z79.899 Other long term (current) drug therapy; Z82.49 Family history of ischemic heart disease and other diseases of the circulatory system; Z87.442 Personal history of urinary calculi; Z87.891 Personal history of nicotine dependence; Z90.710 Acquired absence of both cervix and uterus; Z95.5 Presence of coronary angioplasty implant and graft; Z88.0 Allergy status to penicillin; Z91.011 Allergy to milk products; Z79.52 Long term (current) use of systemic steroids; Z86.010 Personal history of colon polyps
CPT/HCPCS: 36415; 71046; 80048; 80053; 83735; 84443; 84484; 85025; 85610; 85730; 93005; 93306; 94640; 94760; 96365; 96375; 99291

== ENCOUNTER 2024-02-06 05:41 | Day surgery (SDC) | payer MEDICARE, OTHER ==
[2024-02-04 16:18] VITALS: BMI 37.5
[2024-02-06] MEDS ORDERED: ALPRAZolam 0.5 MG TAB PO PRN (05:55)
[2024-02-06] MEDS ORDERED: ALPRAZolam 0.25 MG TAB PO PRN (05:55)
[2024-02-06] MEDS ORDERED: NITROGLYCERIN SL TABS 0.4 MG TAB SUBLINGUAL PRN (05:55)
[2024-02-06] MEDS: SODIUM CHLORIDE 0.9% 1,000 ML in EMPTY BAG 1 BAG IV ONE (06:14)
[2024-02-06 06:36] VITALS: RESP 16; TEMP 98.2
[2024-02-06] MEDS: IV FLUID CONTINUATION 1,000 ML IV ONE (06:44)
[2024-02-06] MEDS ORDERED: ASPIRIN 325 MG TAB PO ONE (07:00)
[2024-02-06] MEDS ORDERED: ATORVASTATIN 80 MG TAB PO ONE (07:00)
[2024-02-06] MEDS: LIDOCAINE 1% INJ 10MG/ML (20 ML MDV) SQ ONE ×2 (07:46→07:47)
[2024-02-06] MEDS: fentaNYL (PF) 50 MCG/1 ML VIAL IVP ONE (07:46)
[2024-02-06] MEDS: diphenhydrAMINE 50 MG/ML 1 ML VIAL IVP ONE (07:46)
[2024-02-06] MEDS: VERAPAMIL SYRINGE (5 MG/10 ML) INTRAARTER ONE (07:47)
[2024-02-06] MEDS: HEPARIN SODIUM 1,000 UN/ML (10ML VL) IVP ONE (07:52)
[2024-02-06] MEDS: HEPARIN SODIUM,PORCINE (1 ML) 2,500 UNIT in SODIUM CHLORIDE 0.9% 250 ML IRRIGATION PRN (07:56)
[2024-02-06] MEDS: HEPARIN SODIUM,PORCINE 10,000 UNIT in SODIUM CHLORIDE 0.9% 1,000 ML IRRIGATION PRN (07:56)
[2024-02-06] MEDS: IOPAMIDOL-370 100ML BTL INJ ONE (07:59)
[2024-02-06] MEDS ORDERED: RX INFO: IV CONTRAST WAS GIVEN 1 EACH MISC MISCELLANE PRN (08:13)
[2024-02-06] MEDS ORDERED: NON FORMULARY DRUG (Umeclidinium Brm/Vilanterol Tr [Anoro Ellipta 62.5-25 Mcg Inh] 1 EACH INHALATION PRN (08:14)
[2024-02-06] MEDS ORDERED: SODIUM CHLORIDE 0.9% 1,000 ML IV SCH (08:15)
--- NOTE | 2024-02-06 08:19 | P.CARDCATH ---
Date of Procedure: 02/06/24 Description of Procedure: Cardiac Catheterization: The patient is a 73-year-old female with a known history of hypertension, hyperlipidemia, prior PCI who presented with symptoms of chest comfort and abnormal MPI. Recommendations were made regarding cardiac catheterization, the risks and the complications were discussed with the patient who is in full understanding and agreement. Procedure Description: Patient was brought to equipment operator/laborer/supervisor in fasting semi-sedated state after receiving Fentanyl and Benadryl achieiving moderate conscious sedated state. Using Xylocaine Anesthesia and modified Seldinger technique, a 6-[place] sheath was introduced in the right radial artery . Subsequently, selective coronary angiography was performed using a 5-[place] 3.5 bend Kentrell catheter. Multiple views of the coronary artery including hemiaxial views were obtained. The 5 [place] pigtail catheter was used to cross the aortic valve and LVEDP was calculated. Following that, catheter and sheath were removed. Hemostasis was obtained with deployment of vascular band . There was no immediate complication. Patient was returned to room in stable condition. Of note, the patient received a total of 4500 units of intravenous heparin as well as intra-arterial verapamil. Findings: Left main: This is a short size vessel, bifurcating immediate to the LAD and left circumflex, left main has no obstructive disease LAD: This is a large size vessel, reaching to the apex giving rise to a proximal large diagonal branch. The LAD has mild intimal disease proximally of 10 to 20% with no high-grade stenosis Left circumflex: This is a large nondominant vessel giving rise to 3 obtuse marginal branch, the first 1 is very proximal. The stented segment in the third obtuse marginal branch is patent with minimal in-stent restenosis of 10%. RCA: This is a large dominant vessel, bifurcating into PDA and PLV. The mid right coronary artery has mild intimal disease of 20-30 %, the rest of the vessel has no high-grade stenosis Left Ventriculogram: Not performed Hemodynamics: There was no gradient across aortic valve, LVEDP was 18-20 mmHg Conclusion: 1. Mild disease in the LAD and RCA 2. Patent stent in the OM 3 3. Right dominance Recommendations: At this time I see no evidence of progression of disease, I have recommended to continue medical therapy with the aggressive coronary risks modification that has been initiated. The findings and the recommendations were discussed with the patient and the family and they were in full understanding and agreement. Duration of sedation is 14 minutes.
[2024-02-06] MEDS ORDERED: DILTIAZEM CD 180 MG CAP.ER.24H PO SCH (09:00)
[2024-02-06] MEDS ORDERED: EZETIMIBE 10 MG TAB PO SCH (09:00)
[2024-02-06] MEDS ORDERED: ISOSORBIDE MONONITRATE ER 30 MG TAB.ER.24H PO SCH (09:00)
[2024-02-06 15:05] VITALS: BP 158/62; PULSE 68
[2024-02-06] MEDS ORDERED: CITALOPRAM HYDROBROMIDE 20 MG TAB PO SCH (21:00)
[2024-02-06] MEDS ORDERED: ATORVASTATIN 40 MG TAB PO SCH (21:00)
[2024-02-06] MEDS ORDERED: FAMOTIDINE 20 MG TAB PO SCH (21:00)
[2024-02-06] MEDS ORDERED: NON FORMULARY DRUG (Losartan Potassium [Losartan Potassium] 100 MG Tablet) PO SCH (21:00)
== END 2024-02-06 12:02 | disposition home or self-care (01) ==
LOC: CATHCVL 05:41
PROVIDERS: ATTEND Internal Medicine Interventional Cardiology
DX: I25.10 Atherosclerotic heart disease of native coronary artery without angina pectoris (principal); Z95.5 Presence of coronary angioplasty implant and graft; I10 Essential (primary) hypertension; E78.2 Mixed hyperlipidemia; I08.1 Rheumatic disorders of both mitral and tricuspid valves; F17.210 Nicotine dependence, cigarettes, uncomplicated; Z79.82 Long term (current) use of aspirin; Z79.01 Long term (current) use of anticoagulants; Z79.899 Other long term (current) drug therapy; Z88.0 Allergy status to penicillin
CPT/HCPCS: 93458; J1200; J1644 ×3; J2003; Q9967; J3010